=== PATIENT | female | born 2000 | race Caucasian/White ===

== ENCOUNTER 2019-07-09 20:52 | Emergency (ER) | payer OTHER, SELFPAY ==
[2019-07-09 20:59] VITALS: BP 143/93; PULSE 76; RESP 16; TEMP 37.2; O2SAT 100
[2019-07-09 21:22] LABS: Basophils Absolute Auto 0.1 K/mm3 (0.0-0.1); Basophils Percent Auto 0.5 % (0.2-1.2); Eosinophils Absolute Auto 0.2 K/mm3 (0-0.3); Eosinophils Percent Auto 1.8 % (0-4.4); Hematocrit 42.7 % (37.0-47.0); Immature Granulocyte Absolute 0.04 K/mm3 (0.00-0.031); Immature Granulocyte Percent A 0.4 % (0-0.5); Lymphocytes Absolute Auto 3.22 K/mm3 (0.9-3.2); Lymphocytes Percent Auto 32.1 % (18.3-44.2); Mean Corpuscular HGB Conc 35.1 g/dl (32-36); Mean Corpuscular Hemoglobin 30.1 pg (26-34); Mean Corpuscular Volume 85.7 fl (80-100); Mean Platelet Volume 10.3 fl (7.4-10.4); Monocytes Absolute Auto 0.8 K/mm3 (0.1-0.6); Monocytes Percent Auto 8.3 % (2.6-8.5); Neutrophils Absolute Auto 5.7 K/mm3 (1.3-6.7); Neutrophils Percent Auto 56.9 % (45.5-73.1); Platelet Count Result 336 k/mm3 (150-375); Red Blood Count 4.98 M/mm3 (4.2-5.4); Red Cell Distribution Width 11.7 % (11.5-14.5)
[2019-07-09 21:52] LABS: Beta HCG Quantitative 24.74 mIU/ML
--- NOTE | 2019-07-09 21:55 | ED.PREGNANCY ---
HPI - General Chief complaint: Vaginal Bleeding Stated complaint: , bleeding Time Seen by Provider: 07/09/19 21:41 Source: patient Mode of arrival: ambulatory Limitations: no limitations History of Present Illness HPI Narrative: A 19 y/o female presents to the ED with c/o vaginal bleeding that began at 8:00 PM. Pt?s LNMP was on 06/07/2019 and the pt had 4 positive home tests on Saturday (3 days ago). Pt started ?bleeding like a period? tonight but did not see any clots. Pt describes the blood as bright red. Pt has an appointment with Dr. Reina on 07/22/2019. She reports fatigue, occasional alcohol use, and a FHx of miscarriages, but denies ABD pain, lightheadedness, dizziness, N/V, smoking, and drug use. Onset (ago): hour(s) (8:00 PM) Date of Last Menstrual Period: 06/07/19 Related Data Home Medications Medication Instructions Recorded Confirmed No Home Medications 07/09/19 07/09/19 Allergies Allergy/AdvReac Type Severity Reaction Status Date / Time No Known Allergies Allergy Unknown Verified 07/09/19 21:08 Review of Systems Review of Systems: All systems reviewed & are unremarkable except as noted in HPI and below Constitutional: Constitutional: Reports fatigue Comments: Denies: lightheadedness, dizziness Gastrointestinal: Gastrointestinal: Denies abdominal pain, Denies nausea and Denies vomiting Genitourinary: Genitourinary: Reports abnormal vaginal bleeding PMFSH Past Medical History Medical History (Updated 07/10/19 @ 00:09 by Ayanna Rodriguez MD) Asthma Finger fracture right 5th Shingles Surgical History Surgical History History of placement of ear tubes Social History Social History (Updated 07/09/19 @ 21:58 by Evelia Grove) Smoking status: Never smoker Alcohol intake: current Alcohol use details: occasional Substance use: never Comments No PCP on file. Exam Narrative: Exam Narrative: GENERAL: Well-appearing, well-nourished, and in no acute distress. HEAD: Normocephalic, atraumatic EYES: PERRLA and EOMI, conjunctiva clear without discharge THROAT:Mucous membranes moist, NECK: Supple, without lymphadenopathy or mass RESPIRATORY: No respiratory distress, Airway patent, Respirations non-labored, Clear to auscultation without rales, rhonchi or wheeze HEART: Regular rate and rhythm. No murmur heard. Normal peripheral pulses. ABDOMEN: Soft, nontender, nondistended, normal active bowel sounds. No masses. No rebound or guarding, No organomegaly. EXTREMITIES: No edema, normal strength with full range of motion. SKIN: Warm, dry, normal color without rash NEURO: Alert and oriented x3. CN 2-12 grossly intact. No focal deficits. PSYCH: Normal mood and affect. : Speculum Exam - Vagina: vaginal bleeding (small amount of dark blood in vaginal vault, no clots, no tissue) Speculum Exam - Cervix: Cervical os closed Course Course Emergency Course: Patient presents with vaginal bleeding with approximate GA 4-5 weeks . Today her HCG is extremely low. I have discussed with patient she is likely having miscarriage , and she will need to get repeat HCG . Bedside ultrasound did not show any FF or IUP. She will call Dr. Reina tomorrow for follow up . She has been given rhogam due to her having Rh negative Consultations Consultation #1: Discussed case with Dr. Reina. Pt can call the office tomorrow and he agrees with giving RhoGAM. Date: 07/09/19 Time: 23:28 Vital Signs Vital signs: Vital Signs Temperature 99.0 F 07/09/19 20:59 Pulse Rate 76 07/09/19 20:59 Respiratory Rate 16 07/09/19 20:59 Blood Pressure 143/93 H 07/09/19 20:59 Pulse Oximetry 100 07/09/19 20:59 Temperature 99.0 F 07/09/19 23:51 Pulse Rate 72 07/09/19 23:51 Respiratory Rate 18 07/09/19 23:51 Blood Pressure 117/76 07/09/19 23:51 Pulse Oximetry 99 07/09/19 23:51 MDM - OB/Uterine Contractions
[2019-07-09 23:48] VITALS: BP 117/76; PULSE 72; PULSE 88; RESP 18; O2SAT 99
[2019-07-09 23:51] VITALS: BP 117/76; PULSE 72; RESP 18; TEMP 37.2; O2SAT 99
[2019-07-09] MEDS: RHO(D) IMMUNE GLOBULIN 300 MCG SYRINGE IM (23:55)
== END 2019-07-10 00:22 | disposition home or self-care (01) ==
PROVIDERS: Emergency Medicine; Emergency Provider General Practice
DX: O20.0 Threatened abortion (principal); Z3A.01 Less than 8 weeks gestation of pregnancy
CPT/HCPCS: 36415; 84702; 85025; 86850; 86900; 86901; 90384; 96372; 99284; J2790

== ENCOUNTER 2020-05-31 16:40 | Observation (INO) | payer OTHER, SELFPAY ==
--- NOTE | ~2020-05-31 | US_ITS ---
US OB limited DATE: 05/31/2020 18:20 INDICATION: Vaginal bleeding. Check placenta, cervical length. TECHNIQUE: Real-time imaging via transabdominal approach COMPARISON: None FINDINGS: There is a posterior placenta. Lower placental margin is approximately 6 cm above the inter nal os. Cervical length is not optimally determined on this limited transabdominal examination without transv aginal views. Fetus in transverse lie. heart rate 138 bpm. IMPRESSION: Posterior placenta; no evidence of previa or any apparent abruption Reviewed, dictated and finalized at [facility] Reviewed, dictated and finalized at [facility]. WORKER
--- NOTE | 2020-05-31 16:40 | OBADM ---
This patient, Jamilah Valenzuela, admitted to the OB room [facility] for observation. Patient/family oriented to hospital policies and general routines including ID bracelet, bed and alarms, visiting hours, pain management, procedures, bathroom and other care routines, personal items, smoking policy, room service/diet, and visiting hours. Patient/Family are encouraged to report perceived risks to care and to ask questions if they do not understand what they are told or what they should do.
[2020-05-31 17:01] VITALS: BP 112/59; PULSE 82
[2020-05-31 17:10] VITALS: TEMP 36.9
[2020-05-31 17:15] VITALS: BP 110/55; PULSE 77; BMI 29.2
[2020-05-31 17:23] LABS: Add Urine Microscopic? YES; Amorphous Sediment Urine Moderate; Appearance Urine Turbid (Clear); Bacteria Urine 4+ /hpf; Bilirubin Urine Negative (Negative); Blood Urine Negative (Negative); Color Urine Yellow (Yellow); Glucose Urine UA Negative (Negative); Ketones Urine Negative (Negative); Leukocyte Esterase Ur Negative LEU/UL (NEGATIVE); Mucus Urine Rare /lpf; Nitrate Urine Negative (Negative); Protein Urine 2+ mg/dL (Negative); Specific Grav Ur 1.015 (1.001-1.035); Squamous Epithelial Cell Urine Many /hpf (Few); Urobilinogen Urine Negative mg/dL (<2.0)
[2020-05-31 17:30] VITALS: BP 87/33; PULSE 74
--- NOTE | 2020-06-06 08:55 | PM.OBTRLD ---
OB - Triage/Final Diagnosis Visit Information Comments/Additional reasons for admission: I have assessed the risk for this patient, Jamilah Valenzuela, and determined that she would benefit from observation care. Evaluation Laboratory results: Laboratory Tests 05/31/20 17:11 Urine Color Yellow Urine Appearance Turbid H Urine pH 9.0 Ur Specific [place] 1.015 Urine Protein 2+ H Urine Glucose (UA) Negative Urine Ketones Negative Ur Blood (Man) Negative Urine Nitrate Negative Urine Bilirubin Negative Urine Urobilinogen Negative Ur Leukocyte Esterase Negative Ur Squamous Epith Cells Many H Amorphous Sediment Moderate H Urine Bacteria 4+ H Urine Mucus Rare Final Diagnosis (1) Vaginal bleeding in patient after first trimester: Code(s): O46.90 - Antepartum hemorrhage, unspecified, unspecified trimester Status: Acute
== END 2020-05-31 19:00 | disposition home or self-care (01) ==
PROVIDERS: Admitting Provider Obstetrics & Gynecology; Visit Provider Obstetrics & Gynecology
DX: O46.92 Antepartum hemorrhage, unspecified, second trimester (principal); Z3A.23 23 weeks gestation of pregnancy
CPT/HCPCS: 76815; 81001; 87086; G0378; G0379

== ENCOUNTER 2022-06-25 10:08 | Emergency (ER) | payer OTHER, SELFPAY ==
[2022-06-25 10:34] VITALS: BP 124/77; PULSE 85; RESP 18; TEMP 36.3; O2SAT 100
--- NOTE | 2022-06-25 11:22 | ED.URI ---
HPI - URI/Sore Throat General Chief Complaint: Upper Respiratory Infection Stated Complaint: cough,sorethroat Time Seen by Provider: 06/25/22 11:22 Source: patient and RN notes reviewed Mode of arrival: ambulatory Limitations: no limitations History of Present Illness HPI Narrative: Influenza a presenting for complaint of sinus congestion, cough, sore throat for about four days. also reports intermittent hoarse voice. 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 Not taking anything for symptoms. Denies shortness of breath, nausea, vomiting, diarrhea, fevers or chills. MD elicited complaint: cough Related Data Home Medications Medication Instructions Recorded Confirmed vits no.126-ferrous fum 1 tablet PO DAILY 05/31/20 05/31/20 28 mg iron-folic acid 800 mcg tablet (Classic ) fluoxetine 10 mg tablet 10 mg PO DAILY 06/25/22 06/25/22 Allergies Allergy/AdvReac Type Severity Reaction Status Date / Time No Known Allergies Allergy Unknown Verified 06/25/22 10:48 Review of Systems Review of Systems: per HPI [facility] Past Medical History Medical History Asthma Finger fracture right 5th Shingles Surgical History Surgical History History of placement of ear tubes Social History Social History Smoking status: Never smoker Alcohol intake: current Alcohol use details: occasional Substance use: never Exam Narrative: GENERAL: well-appearing, nontoxic no acute distress. HEAD: Normocephalic EYES: PERRLA, conjunctivae clear ENT: Mucous membranes moist. TM pearly foley with dull light reflex bilaterally; no tragal tenderness. Oropharynx erythematous without lesions or exudate, tonsils 2+; no drooling, no hoarseness, no trismus, uvula midline. No tripod positioning, muffled voice, soft palate or pharyngeal wall bulging NECK: Supple. No lymphadenopathy CHEST: Clear to auscultation, breath sounds equal. HEART: Regular rate and rhythm. No murmur heard. SKIN: Warm, dry, no rash. NEURO: Alert and oriented x3. PSYCH: Normal mood and affect Course Course Emergency Course: Patient is aware of diagnosis, understands and agrees to treatment plan. Anticipatory guidance given. Patient agrees to follow-up as directed and is aware of reasons to seek care at the emergency department. Portions of this record may have been created with voice recognition software Level of Care: Express Care Visit Vital Signs Vital signs: Vital Signs Temperature 97.3 F L 06/25/22 10:34 Pulse Rate 85 06/25/22 10:34 Respiratory Rate 18 06/25/22 10:34 Blood Pressure 124/77 06/25/22 10:34 Pulse Oximetry 100 06/25/22 10:34 Oxygen Delivery Room Air 06/25/22 10:34 Temperature 97.3 F L 06/25/22 10:34 Pulse Rate 85 06/25/22 10:34 Respiratory Rate 18 06/25/22 10:34 Blood Pressure 124/77 06/25/22 10:34 Pulse Oximetry 100 06/25/22 10:34 Oxygen Delivery Room Air 06/25/22 10:34 reviewed MDM - URI/Sore Throat MDM Narrative Medical decision making narrative: Advised supportive measures and signs/symptoms to go to the ER. Pt is appropriate for outpt treatment and f/u. Differential Diagnosis Differential diagnosis: Likely upper respiratory infection, sinusitis and viral infection Lab Data Labs: Strep Screen Presumptive Negative *(Reference Range: Negative)* Discharge Plan Discharge Clinical Impression: Upper respiratory infection Patient Disposition: Home, Self-Care Condition: Stable Instructions: Upper Respiratory Infection (ED) Additional Instructions: Rapid strep swab was negative today You will be notified in a few days if the culture comes back positive for strep, and appropriate antibiot
== END 2022-06-25 11:37 | disposition home or self-care (01) ==
PROVIDERS: Emergency Provider Nurse Practitioner Family
DX: J06.9 Acute upper respiratory infection, unspecified (principal); J45.909 Unspecified asthma, uncomplicated
CPT/HCPCS: 87081; 87880; 99213; G0463

== ENCOUNTER 2023-02-25 09:36 | Emergency (ER) | payer OTHER, SELFPAY ==
[2023-02-25 09:45] VITALS: BP 123/71; PULSE 83; RESP 18; TEMP 36.6; O2SAT 100
--- NOTE | 2023-02-25 10:06 | ED.URI ---
HPI - URI/Sore Throat General Chief Complaint: Upper Respiratory Infection Stated Complaint: cough,nausea,congestion Time Seen by Provider: 02/25/23 09:55 Source: patient and RN notes reviewed Mode of arrival: ambulatory Limitations: no limitations History of Present Illness HPI Narrative: Patient presents today complaining of 3 day history of cough, congestion, rhinorrhea, nausea, headache, vomiting. She also reports shortness of breath with coughing episodes. Denies fever. Currently rates her pain 5/10. She has tried no [id number] treatment prior to arrival. Patient works at a daycare with multiple sick exposures. Patient reports history of exercise-induced asthma as a child Related Data Home Medications Medication Instructions Recorded Confirmed No Home Medications 02/25/23 02/25/23 Allergies Allergy/AdvReac Type Severity Reaction Status Date / Time No Known Allergies Allergy Unknown Verified 06/25/22 10:48 Review of Systems Review of Systems: CONSTITUTIONAL: Denies body aches, fever, chills, or sweats. EYES: Denies visual changes, redness, or discharge. ENT: Denies sore throat, or otalgia.+ rhinorrhea, congestion CARDIOVASCULAR: Denies chest pain, palpitations, or edema. RESPIRATORY: + cough, shortness of breath GASTROINTESTINAL: Denies abdominal pain, vomiting, or diarrhea.+ nausea GENITOURINARY: Denies dysuria or hematuria. SKIN: Denies rash, itching, or wounds. MUSCULOSKELETAL: Denies back pain, joint pain, or myalgia. NEUROLOGIC: Denies numbness, tingling, or weakness.+ headache PSYCH: Denies depression or anxiety. [facility] Past Medical History Medical History Asthma Finger fracture right 5th Shingles Surgical History Surgical History History of placement of ear tubes Social History Social History Smoking status: Never smoker Alcohol intake: current Alcohol use details: occasional Substance use: never Comments At time of signature, I have reviewed and agree with nursing past medical, surgical, social and family history unless otherwise noted. Please see nursing chart for further information. There is no relevant family history pertinent to the presenting complaint Exam Narrative: GENERAL: Mildly ill-appearing, well-nourished, and in no acute distress. HEAD: Normocephalic, atraumatic. EYES: EOMI. No redness or drainage. Conjunctivae normal. ENT: Mucous membranes pink and moist. Nares congested. No rhinorrhea. TMs normal bilaterally. Throat normal. Uvula midline. NECK: Normal AROM. Supple. No lymphadenopathy. CHEST: No respiratory distress. Clear to auscultation. HEART: Regular rate and rhythm. No murmur appreciated. Normal peripheral pulses. EXTREMITIES: Normal range of motion. No edema. SKIN: Warm, dry, no rash. Capillary refill normal. Normal skin turgor. NEURO: No focal deficits. Alert and oriented x3. Gait steady. PSYCH: Normal affect. No signs of depression or anxiety. Course Course Level of Care: Express Care Visit Vital Signs Vital signs: Vital Signs Temperature 98 F 02/25/23 09:45 Pulse Rate 83 02/25/23 09:45 Respiratory Rate 18 02/25/23 09:45 Blood Pressure 123/71 02/25/23 09:45 Pulse Oximetry 100 02/25/23 09:45 Oxygen Delivery Room Air 02/25/23 09:45 Temperature 98 F 02/25/23 09:45 Pulse Rate 83 02/25/23 09:45 Respiratory Rate 18 02/25/23 09:45 Blood Pressure 123/71 02/25/23 09:45 Pulse Oximetry 100 02/25/23 09:45 Oxygen Delivery Room Air 02/25/23 09:45 Reviewed. Pt has been instructed to follow up with her PCP regarding her elevated blood pressure today. MDM - URI/Sore Throat MDM Narrative Medical decision making narrative: All testing negative. Symptoms likely viral in etiology. No prescription med
== END 2023-02-25 10:14 | disposition home or self-care (01) ==
PROVIDERS: Emergency Provider Nurse Practitioner
DX: B34.9 Viral infection, unspecified (principal); Z20.822 Contact with and (suspected) exposure to COVID-19
CPT/HCPCS: 87081; 87426; 87804; 87880; 99213; C9803; G0463

== ENCOUNTER 2023-05-17 11:25 | Emergency (ER) | payer OTHER, SELFPAY ==
--- NOTE | 2023-05-17 11:31 | ED.URI ---
HPI - URI/Sore Throat General Chief Complaint: Upper Respiratory Infection Stated Complaint: Shortness of Breath, Can't Hear and Smell Time Seen by Provider: 05/17/23 11:31 Source: patient, RN notes reviewed and old records reviewed Mode of arrival: ambulatory Limitations: no limitations History of Present Illness HPI Narrative: 23-year-old female presents to the [facility] with complaints of decreased hearing, loss of smell and shortness of breath Symptoms started 2 weeks ago. Patient states that for the last several days she has had intermittent chest pressure. Patient states that her father was recently diagnosed with AFib, concerns in regards to back. Patient reports that her dad's in the hospital and she has been very worried. Patient is 7 weeks , uses [employer] Has not taken anything for her symptoms Related Data Home Medications Medication Instructions Recorded Confirmed vit#24-iron amino acid 1 tablet PO DAILY 05/17/23 05/17/23 chelat-folic acid 30 mg-975 mcg tablet Allergies Allergy/AdvReac Type Severity Reaction Status Date / Time No Known Allergies Allergy Unknown Verified 05/17/23 11:27 Review of Systems Review of Systems: All systems reviewed & are unremarkable except as noted in HPI and below Constitutional: Constitutional: Reports no additional constitutional complaints Eyes: Eyes: Reports no additional eye complaints ENT: Reports as per HPI Cardiovascular: Cardiovascular: Reports no additional cardiovascular complaints, Denies chest pain and Denies dyspnea Respiratory: Respiratory: Reports no additional respiratory complaints, Denies chest congestion, Denies cough and Denies dyspnea Gastrointestinal: Gastrointestinal: Reports no additional gastrointestinal complaints, Denies abdominal pain, Denies nausea and Denies vomiting Musculoskeletal: Musculoskeletal: Reports no additional musculoskeletal complaints Integumentary/Breasts: Skin/Breast: Reports system reviewed and no additional complaints, except as docu Neurologic: Reports system reviewed and no additional complaints, except as documented Psychiatric: Psychiatric: Reports no additional psychiatric complaints Allergic/Immunologic: Allergic/Immunologic: Reports no additional allergic/immunologic complaints [facility] Past Medical History Medical History Asthma Finger fracture right 5th Shingles Surgical History Surgical History History of placement of ear tubes Social History Social History Smoking status: Never smoker Alcohol intake: current Alcohol use details: occasional Substance use: never Comments At the time of my signature, I reviewed and agree with the nursing past medical, surgical, social, and family history. There is no relevant family history pertinent to the patient complaint. Exam Const: General: cooperative, healthy appearing, comfortable, no acute distress, well developed, alert and well nourished Nutritional Appearance: well nourished Orientation/consciousness: patient oriented x3 Limitations: no limitations HENMT: Head: normal to inspection Ears: hearing grossly normal bilaterally, external ears normal, TM's normal bilaterally, EAC's normal, mastoids normal and no periauricular adenopathy Face/Nose/Sinus: Normal external nose present, Normal nares present, Normal nasal mucous membranes and turbinates present, normal facial exam and face symmetric Face and sinus: normal facial exam and face symmetric Mouth: Yes Normal oral and palatal mucosa present, Yes lip normal and Yes moist mucous membranes Throat: posterior oropharynx normal, uvula midline and postnasal drainage Eyes: General: appearance normal, both eyes and all related structures Alignment and Position: alignment normal Pe
[2023-05-17 11:33] VITALS: BP 116/54; PULSE 88; RESP 16; TEMP 36.6; O2SAT 99
--- NOTE | 2023-05-17 11:39 | ECG_ITS ---
Measurements Intervals [place] Rate: 74 P: 40 KS: 134 QRS: 72 QRSD: 85 T: 21 QT: 388 QTc: 433 Interpretive Statements SINUS RHYTHM NORMAL ECG NO PREVIOUS ECG AVAILABLE FOR COMPARISON Electronically Signed On 05-17-2023 11:57:32 ANIMAL ATTENDANT by Michael Soto D.O.
== END 2023-05-17 11:57 | disposition home or self-care (01) ==
PROVIDERS: Emergency Provider Nurse Practitioner
DX: J06.9 Acute upper respiratory infection, unspecified (principal); H92.09 Otalgia, unspecified ear; F41.9 Anxiety disorder, unspecified; I48.91 Unspecified atrial fibrillation; J45.909 Unspecified asthma, uncomplicated
CPT/HCPCS: 93005; 99213; G0463

== ENCOUNTER 2023-06-18 13:58 | Emergency (ER) | payer OTHER, SELFPAY ==
--- NOTE | 2023-06-18 14:05 | ED.URI ---
HPI - URI/Sore Throat General Chief Complaint: Upper Respiratory Infection Stated Complaint: sorethroat,congestion Time Seen by Provider: 06/18/23 14:04 Source: patient Mode of arrival: ambulatory Limitations: no limitations History of Present Illness HPI Narrative: Patient is a 23-year-old female who presents with congestion, sore throat, sinus drainage and headache this started this morning. Patient has not taken anything for his symptoms. Patient is approximately 12 weeks . 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 Related Data Home Medications Medication Instructions Recorded Confirmed vit#24-iron amino acid 1 tablet PO DAILY 05/17/23 06/18/23 chelat-folic acid 30 mg-975 mcg tablet Allergies Allergy/AdvReac Type Severity Reaction Status Date / Time No Known Allergies Allergy Unknown Verified 06/18/23 14:04 Review of Systems Review of Systems: All systems reviewed & are unremarkable except as noted in HPI and below Constitutional: Constitutional: Denies body ache(s), Denies chills, Denies fatigue, Denies fever(s), Reports headache(s), Denies malaise and Denies weakness Eyes: Eyes: Denies blurry vision, Denies itchy eyes and Denies loss of vision ENT: Denies otalgia, Denies headache(s), Reports nasal congestion, Denies sinus pain and Reports sore throat Cardiovascular: Cardiovascular: Denies chest pain, Denies irregular heart rhythm and Denies dyspnea Respiratory: Respiratory: Denies cough and Denies dyspnea Gastrointestinal: Gastrointestinal: Denies abdominal pain, Denies diarrhea, Denies nausea and Denies vomiting Musculoskeletal: Musculoskeletal: Denies back pain, Denies myalgias and Denies arthralgias Integumentary/Breasts: Skin/Breast: Denies pruritus and Denies rash Neurologic: Denies headache(s), Denies loss of vision and Denies weakness Psychiatric: Psychiatric: Reports no additional psychiatric complaints Endocrine: Endocrine: Denies fatigue Allergic/Immunologic: Allergic/Immunologic: Denies itchy eyes PMFSH Past Medical History Medical History Asthma Finger fracture right 5th Shingles Surgical History Surgical History History of placement of ear tubes Social History Social History Smoking status: Never smoker Alcohol intake: current Alcohol use details: occasional Substance use: never Comments At time of signature, agree with nursing past medical, surgical, social and family history. There is no relevant family history pertinent to the presenting complaint. Exam Const: General: cooperative, healthy appearing, comfortable, no acute distress and well nourished Nutritional Appearance: well nourished Orientation/consciousness: patient oriented x3 Limitations: no limitations HENMT: Head: normal to inspection, normocephalic and atraumatic Ears: hearing grossly normal bilaterally, external ears normal, TM's normal bilaterally, EAC's normal and no periauricular adenopathy Face/Nose/Sinus: Normal external nose present, Abnormal mucous membranes and turbinates present erythematous bilateral and diffuse, normal facial exam, sinuses nontender and face symmetric Face and sinus: normal facial exam, sinuses nontender and face symmetric Mouth: Yes Normal oral and palatal mucosa present, Yes lip normal, Yes tongue normal, Yes Normal salivary glands and ducts present, Yes oropharynx normal and Yes moist mucous membranes Teeth and gingiva: dentition normal Throat: posterior oropharynx normal, tonsils normal and uvula midline Eyes: General: appearance normal, both eyes and all related structures Alignment and Position: alignment normal and position normal Periorbital: periorbital findings normal Eyelids: eyelids normal Pupils: Equal, round and reactive pupils present Neck:
[2023-06-18 14:18] VITALS: BP 116/70; PULSE 86; RESP 16; TEMP 36.8; O2SAT 99
== END 2023-06-18 14:43 | disposition home or self-care (01) ==
PROVIDERS: Emergency Provider Nurse Practitioner Family
DX: O99.511 Diseases of the respiratory system complicating pregnancy, first trimester (principal); Z3A.12 12 weeks gestation of pregnancy; J06.9 Acute upper respiratory infection, unspecified; J45.909 Unspecified asthma, uncomplicated
CPT/HCPCS: 87081; 87880; 99213; G0463

== ENCOUNTER 2024-02-06 12:35 | Emergency (ER) | payer OTHER, SELFPAY ==
--- NOTE | 2024-02-06 12:46 | ED.URI ---
HPI - URI/Sore Throat General Chief Complaint: Upper Respiratory Infection Stated Complaint: Sore throat/ cough/ body aches Time Seen by Provider: 02/06/24 12:46 Source: patient Mode of arrival: ambulatory Limitations: no limitations History of Present Illness HPI Narrative: Patient is a 24-year-old female who presents with 3 days of cough, sore throat, headache, body aches. Patient reports fever of 100.2 last night but woke up sweating in her sleep. Patient has been taking ibuprofen and Mucinex. Denies any nausea, vomiting, diarrhea. Son is currently on amoxicillin for sinus infection. Patient also states she is being worked up for autoimmune disease by her Ob Related Data Home Medications Medication Instructions Recorded Confirmed bupropion HCl 100 mg tablet,12 hr mg PO 02/06/24 sustained-release Allergies Allergy/AdvReac Type Severity Reaction Status Date / Time No Known Allergies Allergy Unknown Verified 02/06/24 13:16 Review of Systems Review of Systems: All systems reviewed & are unremarkable except as noted in HPI and below Constitutional: Constitutional: Reports body ache(s), Denies chills, Reports fatigue, Reports fever(s), Reports headache(s), Denies malaise and Denies weakness Eyes: Eyes: Denies blurry vision, Denies itchy eyes and Denies loss of vision ENT: Denies otalgia, Denies headache(s), Reports nasal congestion, Denies sinus pain and Reports sore throat Cardiovascular: Cardiovascular: Denies chest pain, Denies irregular heart rhythm and Denies dyspnea Respiratory: Respiratory: Reports cough and Denies dyspnea Gastrointestinal: Gastrointestinal: Denies abdominal pain, Denies diarrhea, Denies nausea and Denies vomiting Musculoskeletal: Musculoskeletal: Denies back pain, Reports myalgias and Denies arthralgias Integumentary/Breasts: Skin/Breast: Denies pruritus and Denies rash Neurologic: Reports headache(s), Denies loss of vision and Denies weakness Psychiatric: Psychiatric: Reports no additional psychiatric complaints Endocrine: Endocrine: Denies fatigue Allergic/Immunologic: Allergic/Immunologic: Denies itchy eyes PMFSH Past Medical History Medical History Asthma Finger fracture right 5th Shingles Surgical History Surgical History History of placement of ear tubes Social History Social History Smoking status: Never smoker Alcohol intake: current Alcohol use details: occasional Substance use: never Comments At time of signature, agree with nursing past medical, surgical, social and family history. There is no relevant family history pertinent to the presenting complaint. Exam Const: General: cooperative, healthy appearing, comfortable, no acute distress and well nourished Nutritional Appearance: well nourished Orientation/consciousness: patient oriented x3 Limitations: no limitations HENMT: Head: normal to inspection, normocephalic and atraumatic Ears: hearing grossly normal bilaterally, external ears normal, TM's normal bilaterally, EAC's normal and no periauricular adenopathy Face/Nose/Sinus: Normal external nose present, Abnormal mucous membranes and turbinates present erythematous bilateral and diffuse, normal facial exam, sinuses nontender and face symmetric Face and sinus: normal facial exam, sinuses nontender and face symmetric Mouth: Yes Normal oral and palatal mucosa present, Yes lip normal, Yes tongue normal, Yes Normal salivary glands and ducts present, Yes oropharynx normal and Yes moist mucous membranes Teeth and gingiva: dentition normal Throat: posterior oropharynx normal, tonsils normal and uvula midline Eyes: General: appearance normal, both eyes and all related structures Alignment and Position: alignment normal and position normal Periorbital: periorbital findings normal Ey
[2024-02-06 12:51] VITALS: BP 118/67; PULSE 90; RESP 16; TEMP 36.4; O2SAT 100
[2024-02-06 13:17] LABS: EDCOVIDSCREEN Negative (Negative); EDINFLUASCREEN Negative (Negative); EDINFLUBSCREEN Negative (Negative); EDSTREPNEGPOS1 Negative (Negative)
== END 2024-02-06 13:28 | disposition home or self-care (01) ==
PROVIDERS: Emergency Provider Nurse Practitioner Family
DX: J06.9 Acute upper respiratory infection, unspecified (principal); J45.909 Unspecified asthma, uncomplicated; Z20.822 Contact with and (suspected) exposure to COVID-19
CPT/HCPCS: 87081; 87426; 87804; 87880; 99213; G0463

== ENCOUNTER 2024-11-02 11:13 | Emergency (ER) | payer OTHER, SELFPAY ==
[2024-11-02 11:24] VITALS: BP 110/59; PULSE 100; RESP 18; TEMP 36.7; O2SAT 99
--- OUTSIDE RECORDS SUMMARY | 2024-11-02 11:44 | XMS_ITS | Clinical Summary ---
Author Organization [facility] Address [address] [place] [address] Care Team Providers Care Labor Service Representative Name Role Phone Unavailable Primary Care Provider Unavailabl e Source Comments [facility],non-owned Affiliates and Associated Physician Practices is amultiple site organization consisting of ambulatory clinics and hospital sitesin [place], [place], [place] and [place]. This disclosure is being madepursuant to the Care Everywhere program and may not contain all information available regarding this patient. Last updated 18.[facility] Allergies No known active allergies Medications * Be aware that medications may not be up to date on this document. Alwaysverify current medications with the patient. DOXYCYCLINE PO Activ e metroNIDAZOLE (FLAGYL) 500 MG tablet Take 500 mg by mouth every 8 hours Active etonogestrel (NEXPLANON) 68 MG implant 68 mg by Subdermal route as directed Active Active Problems Problem Noted Date Diagnosed Date Second 05/20/2020 Encounter for ultrasound 05/20/2020 Poor growth affecting management of mother, antepartum 05/20/2020 Overview (05/20/2020): 7% at 20 wk anatomy on outside scan. Immunizations Immunization Administration Dates Next Due DPT 1998,1998,1998 DTaP VACCINE IM (6wk-6yrs) 11/30/2003,07/08/1999 HEP A PEDS 2 DOSE 02/14/2004 HEP B VACCINE, PED/ADOL 1998,1998, HIB BOOSTER 07/08/1999, 9,1998, 8 MENINGOCOCCAL ACWY (MCV4P) VAC IM 01/18/2016 MMR 11/30/2003,01/12/1999 POLIO IPV 11/27/2003,1998,1998 POLIO OPV 1998 Family History Medical History Relation Name Comments Hypertension Father Asthma Neg Hx Autoimmune Disease Neg Hx Bipolar Disorder Neg Hx Cancer - Breast Neg Hx Cancer - Colon Neg Hx Cancer - Other Neg Hx Cancer - Ovarian Neg Hx Cancer - Pancreatic Neg Hx Cancer - Prostate Neg Hx Depression Neg Hx Eczema Neg Hx Migraine Neg Hx Osteoporosis Neg Hx Seizures Neg Hx Sudd. <30 Neg Hx Thyroid Disease Neg Hx Ulcerative Colitis Neg Hx Relation Name Status Comments Father Alive Mother Alive Social History Tobacco Use Types Packs/Day Years Used Date Smoking Tobacco: Never Smokeless Tobacco: Never Tobacco Cessation:Counseling Given: No Alcohol Use Standard Drinks/Week Comments No 0 (1 standard drink = 0.6 oz pur e alcohol) Comments No Sex and Gender Information Value Date Recorded Sex Assigned at Not on file Legal Sex Female 1:03 PM CDT Gender Identity Not on file Sexual Orientation Not on file Last Filed Vital Signs Vital Sign Reading Time Taken Comments Blood Pressure 116/62 10/09/2021 9:52 AM CDT Pulse 65 10/09/2021 9:52 AM CDT Temperature 36.6 C (97.9 F) 06/29/2020 8:52 AM DELICATESSEN SLICER Respiratory Rate 16 10/09/2021 9:52 AM CDT Oxygen Saturation 97% 06/19/2018 3:27 PM DELICATESSEN SLICER Inhaled Oxygen Concentration - - Weight 63.5 kg (140 lb) 06/19/2018 3:27 PM DELICATESSEN SLICER Height 149.9 cm (4' 11) 06/19/2018 3:27 PM DELICATESSEN SLICER Body Mass Index 28.28 06/19/2018 3:27 PM DELICATESSEN SLICER Plan of Treatment Health Maintenance Due Date Last Done Comments DTAP/TDAP/TD VACCINES (6 - Tdap) 2009 11/30/2003, 07/08/1999, 1998, Additional history exists HIV SCREENING 2013 HPV VACCINE (1 - 3-dose series) 2013 HEPATITIS C SCREENING 01/05/2016 PAP SMEAR 2019 COVID-19 VACCINE ( season) 2024 DEPRESSION SCREENING 05/06/2024 INFLUENZA VACCINE (Season Ended) 2025 07/30/2013 ZOSTER VACCINE (1 of 2) 01/10/2048 HEPATITIS B VACCINE Completed 1998, 1998, 1998 HIB VACCINE Completed 07/08/1999, 07/05, 1998, Additional history exists MENINGOCOCCAL GROUPS A/C/Y/W VACCINE Completed 01/18/2016 MENINGOCOCCAL (Group B) VACCINE SHARED DECISION-MAKING Aged Out No longer eligible based on patient's age to complete this topic PNEUMOCOCCAL VACCINE Aged Out No long er eligible based on patient's age to complete this topic Insurance MEDICAID [employer] [place] * Guarantor: JAMILAH VALENZUELA Account Type Relation to Patient Date of Phone Billing Address Personal/Family [address] [place] [address] * Guarantor: JAMILAH VALENZUELA Account Type Relation to Patient Date of Phone Billing Address Personal/Family 2000 [place] VALENZUELA [address] [place] [id number]
--- OUTSIDE RECORDS SUMMARY | 2024-11-02 11:44 | XMS_ITS | Continuity of Care Document ---
Author Organization [facility] Address [address] [place] [address] [address] [place] [address] Phone Care Team Providers Care Collar Worker Name Role Phone Priscilla Epps Unavailable Unavailable Advance Directives Directive Yes / No Effective Date File Name No Information Encounters Encounter Description Practice Location Reason(s) For Visit Diagnoses Date Provider Providers Copied on Encounter [facility], [address] [place] [address] [address], [place], [place], [id number], [place] tel:[phone] [facility] No Information Aug-2 3-200 2 Supriya Wells. [address] , [address], [place], [address], [place]. tel:[phone] Family History Family Member Type Diagnosis Age At Onset No Information Payers Payer name Insurance type Covered constitution party ID Authoriza tion(s) No Information Social History Type Description Quantity Date Captured Comments Sex Female Smoking Status No Information Chief Complaint And Reason For Visit No Information Reason For Referral Reason For Referral No Information History Of Present Illness Encounter Date Complaint History Of Prese nt Illness No Information Functional Status Date Functional Assessmen t No Information Instructions Date Instruction Additional Infor mation No Information Assessments Type Assessment Date No Information Patient Care Teams Name Effective Dates (start - stop) Status Members No Information
--- OUTSIDE RECORDS SUMMARY | 2024-11-02 11:44 | XMS_ITS | Clinical Summary ---
Author Organization [facility] Address [address] [place] [address] Phone Care Team Providers Care Automobile Engine Assembler Name Role Phone Hao Millard MD Primary Care Provider [phone] Allergies No known active allergies Medications HYDROcodone-acet aminophen (NORCO) 5-325 mg tablet Take 1 Tab by mouth every 4 hours as needed for Pain, Moderate. 12 Tab 0 02/27/2014 Active Social History Tobacco Use Types Packs/Day Years Used Date Smoking Tobacco: Never Comments Unknown Sex and Gender Information Value Date Recorded Sex Assigned at Not on file Legal Sex Female 7:35 PM CDT Gender Identity Not on file Sexual Orientation Not on file Last Filed Vital Signs Vital Sign Reading Time Taken Comments Blood Pressure 130/70 02/27/2014 9:02 PM CDT Pulse - - Temperature 36.9 C (98.5 F) 02/27/2014 7:41 PM CDT Respiratory Rate 20 02/27/2014 9:02 PM CDT Oxygen Saturation 98% 02/27/2014 9:02 PM CDT Inhaled Oxygen Concentration - - Weight 60 kg (132 lb 4.4 oz) 02/27/2014 7:41 PM CDT Height - - Body Mass Index - - Plan of Treatment Health Maintenance Due Date Last Done Comments HPV VACCINES (1 - 3-dose series) 2013 DTAP/TDAP/TD VACCINES (1 - Tdap) 2017 HEPATITIS B VACCINES (1 of 3 - 19+ 3-dose series) 10/2016 CERVICAL CANCER SCREENING 2019 HPV/Cotest (21-29) 2019 PAP SMEAR 2019 INFLUENZA VACCINE (#1) 2023 Care Teams Automobile Engine Assembler Relationship Specialty Start Date End Date Hao Millard MD [address] [place] [address] PCP - General Pediatrics 02/27/14
--- OUTSIDE RECORDS SUMMARY | 2024-11-02 11:45 | XMS_ITS | Referral Summary ---
Author Organization [address] Address [facility] [place] [address] Care Team Providers Care Survey Field Technician Name Role Phone Summer Nguyễn MD Unavailable [phone] No, Physician Primary Care Provider [phone] Encounters Date Type Department Care Team Description 10/28/2024 2:00 PM CDT Office Visit [facility] Maternal- Medicine [address] [place] [address] Outpatient Health 7th Floor [address] [place] [address] Anxiety and depression (Primary Dx); ASCUS of cervix with negative high risk HPV; History of section complicating ; Supervision of high-risk , second trimester; Short interval between pregnancies affecting in second trimester, antepartum; History of poor growth 10/28/2024 1:10 PM CDT - 10/28/2024 11:59 PM CDT Hospital Encounter [facility] - Ultrasound [address] [place] [address], 7th Floor, [address] [facility] [place] [address] Supervision of high-risk , unspecified trimester; Ventricular premature beats; History of section complicating ; Short interval between pregnancies affecting in second trimester, antepartum Discharge Disposition: Discharge to home or self care 09/23/2024 3:15 PM CDT Office Visit [facility] Maternal- Medicine [address] [place] [address] Health 7th Floor [address] [place] [address] Ventricular premature beats (Primary Dx); Supervision of high-risk , unspecified trimester; History of section complicating ; Short interval between pregnancies affecting in second trimester, antepartum; ASCUS of cervix with negative high risk HPV; Anxiety and depression 09/23/2024 2:10 PM CDT - 09/23/2024 11:59 PM CDT Hospital Encounter [facility] for Outpatient Health - Ultrasound [address] [facility], 7th Floor, [address] [facility] [place] [address] Supervision of high-risk , unspecified trimester Discharge Disposition: Discharge to home or self care 09/07/2024 Telephone [facility] Maternal- Medicine [address] [facility] Outpatient Health 7th Floor [address] [place] [address] Payal Joel, PRICE Scheduling US/OB New from Last 3 Months Allergies No known active allergies Medications albuterol HFA (PROVENTIL HFA,VENTOLIN HFA,PROAIR HFA) 90 mcg/actuation inhaler Inhale 2 puffs every 6 (six) hours as needed for wheezing Active aspirin 81 mg enteric coated tablet Take 1 tablet (81 mg total) by mouth daily 08/31/2024 Active vit-iron fum-folic ac ( Vitamin) 27 mg iron- 800 mcg tablet Take 1 tablet every day by oral route. 07/27/2024 Active riboflavin (Vitamin B-2) 100 mg tabletIndicatio ns:Riboflavin Deficiency 400mg daily by mouth 120 tablet 3 09/23/2024 Active magnesium oxide (MAG-OX) 500 mg (301.6 mg elemental) tablet Take 1 tablet (500 mg total) by mouth daily 30 tablet 3 09/23/2024 Active Active Problems Problem Noted Date Diagnosed Date History of poor growth 10/28/2024 Overview (10/28/2024): Growth scan at about 28 weeks and 34 weeks ASCUS of cervix with negative high risk HPV 11/2024 Overview (09/24/2024): Planned for follow up in 2025 per ASCCP guidelines w/ primary OBGYN. Short interval between pregn ancies affecting in second trimester, antepartum 09/08/2024 Overview (10/26/2024): Previously counseled History of section complicating pregnan cy 09/08/2024 Overview (10/28/2024): Ms. Valenzuela has a history of three prior deliveries, with the last notable for a uterine window underlying the bladder flap (op note available in Epic) and intraabdominal scar tissue. S/p counseling Plan: [] Given uterine window plan for 36 w 0 d- 37 6 d delivery [] Preop anemia optimization [] Readdress contraception at [facility], interested in BS Supervision of high-risk , second trime ster 09/08/2024 Overview (10/26/2024): [] OB consult only, [] Co-management vs. [x] Full MFM Care; [] Red Team [] Blue Team Referring Provider: Ysabel Ku [phone] [] or Medicare Insurance [x] Dating Criteria: LMP 06/19/24 with JOSE 03/26/25 [x] Labs: Rh [O-], Ab [negative], Rubella [immune], HIV [non-reactive], HepBSAg [non-reactive], HepBSAb [not done], HepBCAb [not done], RPR [non- reactive], Hep C [non-reactive], Varicella [positive], GC/CT [negative/negative] [] Aneuploidy Screening: collected w/ primary, results unavailable (pt reports wnl) [] Carrier Screening: [] Hgb electrophoresis: s/p nl CBC [x] CBC/Hgb: 13.3/38.6/plt 298 [x] Hgb A1c 08/31/24: 4.7 [x] UCx: 08/31/24: no growth [x] Pap: 02/21/23: ASCUS; HPV negative [] LD ASA (if indicated): not indicated [] EPDS [ ]; PNBHS referral (if indicated): 2nd Trimester [] Anatomy ultrasound: --- [] CBC/1hr gtt at 24-28wks: [] Rhogam at 28 wks (if Rh neg):will need 3rd Trimester [] CBC/HIV/RPR/T&S: [] GBS: [] GC/CT (if indicated): [] testing: Counseling [] MOD: RCS [] Place of delivery: [facility] [] Epidural: [] Accepts Blood Products: [] Stop ASA: [] MOC: [] Method of feeding: [] Trench Pipe Layer Helper (specifically which provider): [] PP Depression Discussed: [] PP visits scheduled: Vaccines [] Flu Shot (Jan-Apr): [] COVID vaccine: [] Tdap (27-36wks): [] RSV vaccine (32-36wks): [] PP HPV vaccine counseling (<=26 yo): Rh negative state in antepartum period Anxiety and depression 09/08/2024 Overview (10/28/2024): Ms. Valenzuela reports a history of depression after prior pregnancies. Plan: [] Monitor sx Ventricular premature beats 07/30/2012 Chest pain 07/30/2012 Estimated Date of Delivery Comme nts Yes 03/26/2025 Based on last me nstrual period of 06/19/2024 Resolved Problems Problem Noted Date Diagnosed Date Resolved Date Other specified diseases and conditions complicating 09/08/2024 09/24/2024 PROM with onset of labor mor e than 24 hours following rupture 12/17/2023 09/08/2024 37 weeks gestation of 10/17/2021 09/08/2024 Immunizations Immunization Administration Dates Next Due MMR 10/19/2021(Deferred: Contraindic ation) Social History Tobacco Use Types Packs/Day Years Used Date Smoking Tobacco: Never Tobacco Cessation:Counseling Given: Not Answered Alcohol Use Standard Drinks/Week Comments Not Currently 0 (1 standard drink = 0.6 oz pur e alcohol) AUDIT-C Answer Date Recorded Q1: How often do you have a drink containing alcohol? Never 12/17/2023 Q2: How many drinks containi ng alcohol do you have on a typical day when you are drinking? Patient does not drink Q3: How often do you have si x or more drinks on one occasion? Never 12/17/2023 Overall Financial Resource Strain (CARDIA) Answe r Date Recorded How hard is it for you to pa y for the very basics like food, housing, medical care, and heating? Not hard at all 12/17/2023 [facility] Occup[facility] - Occupational Stress Questionnaire Answer Date Recorded Do you feel stress - tense, restless, nervous, or anxious, or unable to sleep at night because your mind is troubled all the time - these days? Only a little 12/17/2023 PRAPARE - Transportation Answer Date Re corded In the past 12 months, has l ack of transportation kept you from medical appointments or from getting medications? No 12/04 In the past 12 months, has l ack of transportation kept you from meetings, work, or from getting things needed for daily living? No 12/17/2023 [place] Depression Scale Answer Date Recorded [place] Depression Scale Total 2 12/19/2023 The thought of harming myself has occurred to me . Never 12/19/2023 Housing Stability Vital Sign Answer Vinay e Recorded In the last 12 months, was t here a time when you were not able to pay the mortgage or rent on time? No 12/17/2023 Number of Times Moved in the Last Year Not on fi le 12/17/2023 At any time in the past 12 m [facility], were you homeless or living in a correction (including now)? No 12/17/2023 Personal Safety Answer Date Recorded Have you ever been in or are you currently in a harmful physical or emotional relationship or is someone making you feel afraid or unsafe? 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 Gender Identity Not on file Sexual Orientation Not on file Occupation Industry Job Start Date Job End Date UNEMPLOYED Not on file Not on file Not on file Last Filed Vital Signs Vital Sign Reading Time Taken Comments Blood Pressure 111/71 10/28/2024 2:24 PM CDT Pulse 89 10/28/2024 2:24 PM CDT Temperature 36.7 C (98 F) 12/20/2023 9:55 AM CDT Respiratory Rate 16 12/20/2023 9:55 AM CDT Oxygen Saturation 97% 10/28/2024 2:24 PM CDT Inhaled Oxygen Concentration - - Weight 70.8 kg (156 lb) 10/28/2024 2:24 PM CDT Height 152.4 cm (5') 10/28/2024 2:24 PM CDT Body Mass Index 30.47 10/28/2024 2:24 PM CDT Plan of Treatment Not on file Procedures Procedure Name Priority Date/Time Associated Diagnosis Comments US OB DETAIL ANATOMY SINGLE OR FIRST GESTATION Schedule Routine, Read Routine (OP Routine) 10/28/2024 1:10 PM CDT Supervision of high-risk , unspecified trimester Ventricular premature beats History of section complicating Short interval between pregnancies affecting in second trimester, antepartum US OB LIMITED Schedule Routine, Read Routine (OP Routine) 09/23/2024 2:10 PM CDT Supervision of high-risk , unspecified trimester HEMOGLOBIN A1C Routine 08/31/2024 ABO/RH Routine 08/31/2024 CBC WITHOUT DIFFERENTIAL Routine 08/31/2024 ANTIBODY SCREEN Routine 08/31/2024 VARICELLA ZOSTER ANTIBODY, IGG Routine 08/31/2024 RUBELLA IGG Routine 08/31/2024 RPR Routine 08/31/2024 HEPATITIS B SURFACE ANTIGEN Routine 08/31/2024 HEPATITIS C ANTIBODY Routine 08/31/2024 CHLAMYDIA TRACHOMATIS CULTURE Routine 08/31/2024 HIV 1/2 ANTIBODY PLUS P24 ANTIGEN Routine 08/31/2024 URINE CULTURE Routine 08/31/2024 N. GONORRHOEAE CULTURE Routine 08/31/2024 from Last 3 Months Results * US Ob Detail Anatomy Single Or First Gestation (10/28/2024 1:10 PM CDT) Fetus# Fetus1 VIEWPOINT Estimated Weight 235 g&grams VIEWPOINT Placenta Details posterior, fundal, Previa-no, no placental masses VIEWPOINT Presentation Breech VIEWPOINT Anatomical Region Laterality Modality Body N/A Ultrasound 10/28/2024 1:11 PM CDT Impressions 10/28/2024 2:24 PM CDT IUP - 18w 2d - interval growth is normal - size is AGA No structural malformations or markers for aneuploidy are identified. The cervical length measurement is normal. US may not detect all anomalies. Narrative Procedure Note Zenon Omalley MD - 10/28/2024 IMPRESSION: IUP - 18w 2d - interval growth is normal - size is AGA No structural malformations or markers for aneuploidy areidentified. The cervical length measurement is normal. US may not detect all anomalies. us Danilo Watters MD IMG OB US PROCEDU RES Final Result * US Ob Limited (09/23/2024 2:10 PM CDT) Fetus# Fetus1 VIEWPOINT Placenta Details fundal, Previa-no VIEWPOINT Anatomical Region Laterality Modality Abdomen N/A Ultrasound 09/23/2024 2:30 PM CDT Impressions 09/23/2024 2:51 PM CDT IUP at 13+5 for viability, evaluation of CS scar 1. CRL corresponds to stated dates 2. Niche present in lower uterine segment, no evidence of uterine dehiscence 3. Normal uterus and adnexa Narrative Procedure Note Bina Michaud MD - 09/23/2024 IMPRESSION: IUP at 13+5 for viability, evaluation of CS scar 1. CRL corresponds to stated dates 2. Niche present in lower uterine segment, no evidence of uterinedehiscence 3. Normal uterus and adnexa Odalis Cheatham MD IMG OB US PROCEDURES Final Result * HIV 1/2 Antibody plus p24 Antigen Blood (08/31/2024) SCRIBED HIV P24 Nonreactive Nonreactive , Invalid Blood Ysabel Ku NP LAB MICROBIOLOGY - GENERAL OR DERABLES Final Result * Hepatitis C antibody Blood (08/31/2024) SCRIBED HCV ab non-reacti ve Blood Ysabel Ku NP LAB MICROBIOLOGY - GENERAL OR DERABLES Final Result * ABO/Rh (08/31/2024) SCRIBED ABO/Rh O- Blood Ysabel Ku NP LAB BLOOD BANK TEST ORDERABLE S Final Result * Rubella IgG antibody Blood (08/31/2024) Rubella IgG Scribed Immune Blood Ysabel Ku NP LAB MICROBIOLOGY - GENERAL OR DERABLES Final Result * RPR Blood (08/31/2024) SCRIBED RPR Non-Reacti ve Non-Reacti ve Blood Result [facility] Ysabel Ku NP LAB MICROBIOLOGY - GENERAL OR DERABLES Final Result * Hepatitis B Surface Antigen Blood (08/31/2024) SCRIBED HBsAg Nonreactive Nonreactive , Invalid Blood Ysabel Ku NP LAB MICROBIOLOGY - GENERAL OR DERABLES Final Result * CBC without differential (08/31/2024) Hct 38.6 Hgb 13.3 Plt 298 Blood Ysabel Ku LAB BLOOD ORDERABLES Final Re sult * Antibody screen (08/31/2024) SCRIBED Indirect Antiglobulin negative Blood Ysabel Ku LAB BLOOD BANK TEST ORDERABLE S Final Result * Chlamydia trachomatis culture (08/31/2024) SCRIBED Chlamydia culture negative Ysabel Ku LAB MICROBIOLOGY - GENERAL OR DERABLES Final Result * Urine culture (08/31/2024) Pathologist [facility] SCRIBED Urine culture no growth Ysabel Ku LAB MICROBIOLOGY - GENERAL OR DERABLES Final Result * N. gonorrhoeae culture (08/31/2024) SCRIBED Gonorrhea culture negative Result [facility] Ysabel Ku LAB MICROBIOLOGY - GENERAL OR DERABLES Final Result * Varicella Zoster IgG antibody Blood (08/31/2024) SCRIBED Varicella Zoster, IgG Positive Blood Ysabel Ku LAB MICROBIOLOGY - GENERAL OR DERABLES Final Result * Hemoglobin A1c (08/31/2024) SCRIBED Hemoglobin A1c 4.7 4.0 - 5.6 % Blood Ysabel Ku LAB BLOOD ORDERABLES Final Re sult from Last 3 Months [place] [employer] [facility] Advance Directives For more information, please contact: [phone] * Full Code (Latest Code Status on File) Date Activated Date Inactivated Comments 12/17/2023 7:44 PM 12/20/2023 5:06 PM * Full Code Date Activated Date Inactivated Comments 12/17/2023 12:58 PM 12/17/2023 7:44 PM * Full Code Date Activated Date Inactivated Comments 10/17/2021 12:26 PM 10/19/2021 4:48 PM * Full Code Date Activated Date Inactivated Comments 10/17/2021 7:27 AM 10/17/2021 12:26 PM Full CPR in case of cardiopulmonary arrest Care Teams Survey Field Technician Relationship Specialty Start Date End Date No, Physician PCP - General 10/07/23 Summer Nguyễn MD [address] [place] [id number] Consulting Physician Obstetrics and Gynecology 10/19/21
--- OUTSIDE RECORDS SUMMARY | 2024-11-02 11:45 | XMS_ITS | Data Portability ---
Author Organization [employer] , [facility] Address [address] [place] [address] Care Team Providers Care Lab Support Service Tech Name Role Phone [facility] Bus Inspector Assessment Encounter Date Assessment Date Assessment LastModified by Organization Details LastModified Time 07/27/2024 07/27/2024 - 24-year-old female with a history of one miscarriage presenting with a confirmed positive test. - Early without severe complications noted, with mild cramping but no bleeding at this time. - Has experienced depression previously, now improved with prior treatment. - Acknowledgement of family predisposition to preeclampsia, baby aspirin planned by 12 weeks gestation. - Comprehensive early management and anticipatory guidance discussed. History Of Positive Shaye: - Acknowledged with past rheumatology evaluation repeat SHAYE was negative is no longer following up with rheumatology, no immediate concerns noted. Not available 07/27/2024 14:29:59 Plan of Treatment Reminders Order Date Submit Date Provider Last Modified By Organization Details Last Modified Time Details Appointments None recorded. Lab hemoglobin A1c, QN, blood 2024 025 [employer], [address] [place], [address], 5 12:31:19 abo group + rh type, blood 2024 025 [facility], [address] [facility], [place], [address], 15:24:12 CBC w/ auto diff 2024 025 [facility], [address] [place], [address], 5 13:02:38 CT + NG DNA, PCR, unspecified specimen 2024 025 [facility], [address] [place], [address], 5 14:38:12 drug of abuse panel, urine 2024 025 [facility], [address] [place], [address], 5 12:39:49 obstetric screen + HIV, serum or blood 2024 025 [facility], [address] [place], [address], 5 15:21:10 measles igg Ab, serum 2024 025 [facility], [address] [place], [address], 5 15:24:10 culture, urine 2024 025 [facility], [address] [place], [address], 5 21:36:03 varicella-z homer igg Ab screen, serum 2024 025 [facility], [address] [place], [address], 5 15:24:09 antibody screen, serum or plasma 2024 025 [facility], [address] [place], [address], 5 15:24:11 urinalysis, dipstick 2024 025 [email or web address] [place], [address] [place] [address], [address], 5 16:45:36 urinalysis, dipstick 2024 025 [facility], [address] [facility], [place], [address], 5 13:34:33 culture, urine 2024 025 [facility], [address] [place], [address], 5 22:09:48 test, urine 2024 025 [facility], [address] [place], [address], 5 12:02:30 beta-HCG, quantitativ e, serum or plasma 2024 025 [facility], [address] [place], [address], 5 14:06:36 CBC w/ auto diff 2023 024 [facility], [address] [place], [address], 4 11:15:28 SHAYE (antinuclea r antibodies) screen, serum 2023 024 [facility], [address] [place], [address], 4 16:04:13 Referral rheumatolog ist referral - pos shaye 1:80 w/ and speckled [address] [facility] ([facility] ), [address] [facility], , [place], [address], 4 18:07:31 Procedures None recorded. Surgeries None recorded. Imaging US, obstetric, transvagina l 04/07/ 2025 04/07/2 025 R[facility], [address] [place], [address], 5 13:57:26 US, transvagina l 2024 025 [email or web address] [facility], [address] [place], [address], 5 15:46:31 Medication Orders aspirin 81 mg tablet,clive yed release 2024 025 R[id number], [address] [place], [address], 5 22:31:54 Vitamin 27 mg iron-0.8 mg tablet 2024 025 [email or web address] [id number], [address] [place], [address], 5 12:02:36 norethindro ne (contracept demetris) 0.35 mg tablet 2023 024 RICARDA [id number], [address] [place], [address], 5 11:30:46 Patient TargetsNo targets recorded. Patient Instructions Encounter Date Encounter Id Patient Instructions Last Modified By Organization Details Last Modified Time 02/05/2024 [id number] depression after childbirth: care instructions Not available 02/05/2024 12:03:55 Care at Home With Your Baby: Care Instructions Not available 02/05/2024 12:03:55 control after counseling Not available 02/05/2024 12:03:55 07/27/2024 [id number] [facility] OB Booklet Not available 07/27/2024 12:02:30 - Begin taking prescribed vitamins daily as soon as they are ready. - Monitor any cramping or bleeding. If severe or accompanied by other symptoms, seek medical attention promptly. - Avoid unnecessary early ultrasound to prevent anxiety; plan for one closer to around eight weeks gestation. - Remember family history risk; plan for baby aspirin initiation around 12 weeks. - Pay attention to any changes in mood or depression symptoms and seek care if necessary. - Continue with dietary and safety measures as discussed, including opting for safe food handling and appropriate hydration. [email or web address] Not available 07/27/2024 12:13:02 During our appointment today, we have confirmed the current gestation is approximately five weeks, with a positive urine test and ongoing mild cramps, which are currently not severe. We discussed the typical timeline and limitations of early ultrasound examinations, noting that performing an ultrasound too early can provoke unnecessary anxiety due to minimal visible development. We also addressed the family history of preeclampsia and its implications. It was decided that baby aspirin might be beneficial around the 12-week patricia as a precautionary measure. The patient has yet to commence vitamins, and I have arranged for a prescription to be directed to her pharmacy. Education regarding dietary caution and general health was reviewed, reinforcing hydration, appropriate food choices, and supplements. Concerns regarding past depression were discussed; the patient reports resolution with the medication Zirzuve in past treatments. Overall, today's meeting aimed to facilitate understanding and continued monitoring of the current status. [email or web address] Not available 07/27/2024 12:13:03 Reason for Referral Lining Machine Tender Referral for Anti-nuclear factor detected pos shaye 1:80 w/ and speckled Referring Physician: Danilo Reynoso, HARDSCAPE FOREMAN, Encounter Date: 02/05/2024 Results Created Date Observation Date Name Description Value Unit Range Abnormal Flag Note LastModifiedBy Organization Detail LastModifiedTime 02/06/20 24 02/06/2024 SHAYE MULTI PLEX W/REF CHASITY 11 AB CASCA DE SHAYE screen, immunoassay NEGATI VE negati ve normal A negat demetris SHAYE Multi plex indic ates the absen ce of detec table antib odies to compo nent christine joey consi sting of doubl e stran ded DNA (dsDN A), chrom atin, ribon ucleo prote in (WINDOW SASH INSTALLER) , Wolf /WINDOW SASH INSTALLER (Sm/R STORES DESPATCH HAND), Wolf (Sm), SS-A, SS-B, Kylee-1, centr omere B, Scl-7 0 and ribos omal P. A negat demetris juan luis t shoshiela d be inter prete d in the arpan xt of the clini jose and labor atory findi ngs and does not rule out autoi mmune disea se danie cteri zed by other autoa ntibo dy speci ficit ies such as rheum atoid arthr itis, autoi mmune hepat itis, prima ry bilia ry cirrh osis, autoi mmune thyro iditi s, Lesley on's disea se, perni cious anemi a, autoi mmune neuro pathi es, vascu litis , kristine c disea se, and bullo us disea se. For addit ional infor ahmet heath refer to http: //[facility] silvia doe.Que stDia gnost ics.c om/fa q/FAQ 177 (This link is being provi ded for infor maral yang/ educa sheela l purpo ses only. ) NO COLLE CTION DATE RECEI KAYLEIGH. WE HAVE USED THE DATE THE SPECI MEN WAS RECEI KAYLEIGH BY THIS LABOR ATORY THE COLLE CTION DATE. IF THIS IS INCOR RECT, AHMET E CONTA CT CLIEN T SERVI VALENTIN. PHONE NUMBE R: [phone] Not Available [facility] [address] [place], [address], 02/06/2024 16:04:13 07/30/19 25 07/29/2024 HCG, TOTAL , QUANT HCG, total, quant Forwar ding to [facility] due to analyz er down time Not Available [facility] [address] [place], [address], 07/29/2024 14:06:36 08/01/19 25 07/31/2024 HCG, TOTAL , QUANT HCG, total, quant [address]65 mIU/m L <5 high Refer ence Range s are for femal es aged 18 years - Adult Nonpr egnan t or preme nopau damaris <5 Postm enopa usal <10 Value s from diffe rent assay metho ds may vary. The use of this assay to monit or or to diagn ose patie nts with cance r or any other condi tion unrel ated to pregn joann has not been valid ated by the florentinf actur jennifer of this assay . Not Available [address], [address], 07/31/2024 15:34:23 02/05/2002/06/2024 CBC (INCL UDES DIFF/ PLT) WBC 9.2 thous and/u L 4.0 - 9.8 normal Not Available [address], [address], 02/06/2024 11:15:28 02/05/2002/06/2024 CBC (INCL UDES DIFF/ PLT) RBC 4.6 chance on/uL 3.9 - 4.9 normal Not Available [address], [address], 02/06/2024 11:15:28 02/05/20 24 02/06/2024 CBC (INCL UDES DIFF/ PLT) hemoglobin 13.1 g/dL 11.8 - 14.8 normal Not Available [address], [address], 02/06/2024 11:15:28 02/05/20 24 02/06/2024 CBC (INCL UDES DIFF/ PLT) hematocrit 39.4 % 35.5 - 44.0 normal Not Available [address], [address], 02/06/2024 11:15:28 02/05/20 24 02/06/2024 CBC (INCL UDES DIFF/ PLT) MCV 86.2 fL 82.0 - 99.0 normal Not Available [address], [address], 02/06/2024 11:15:28 02/05/20 24 02/06/2024 CBC (INCL UDES DIFF/ PLT) MCH 28.7 pg 27.2 - 32.6 normal Not Available [address], [address], 02/06/2024 11:15:28 02/05/2002/06/2024 CBC (INCL UDES DIFF/ PLT) MCHC 33.2 g/dL 31.5 - 35.5 normal Not Available [address], [address], 02/06/2024 11:15:28 02/05/2002/06/2024 CBC (INCL UDES DIFF/ PLT) RDW-CV 13.4 % 11.5 - 14.5 normal Not Available [address], [address], 02/06/2024 11:15:28 02/05/2002/06/2024 CBC (INCL UDES DIFF/ PLT) platelet 322 thous and/u L 140 - 350 normal Not Available [address], [address], 02/06/2024 11:15:28 02/05/2002/06/2024 CBC (INCL UDES DIFF/ PLT) MPV 11.2 fL 9.3 - 12.4 normal Not Available [address], [address], 02/06/2024 11:15:28 02/05/2002/06/2024 CBC (INCL UDES DIFF/ PLT) absolute neutrophil 6.19 thous and/u L 1.90 - 7.00 normal Not Available [address], [address], 02/06/2024 11:15:28 02/05/2002/06/2024 CBC (INCL UDES DIFF/ PLT) absolute lymphocyte 1.87 thous and/u L 0.70 - 4.50 normal Not Available [address], [address], 02/06/2024 11:15:28 02/05/2002/06/2024 CBC (INCL UDES DIFF/ PLT) absolute monocyte 0.74 thous and/u L 0.10 - 1.30 normal Not Available [address], [address], 02/06/2024 11:15:28 02/05/20 24 02/06/2024 CBC (INCL UDES DIFF/ PLT) absolute eosinophil 0.38 thous and/u L <0.70 normal Not Available [address], [address], 02/06/2024 11:15:28 02/05/20 24 02/06/2024 CBC (INCL UDES DIFF/ PLT) absolute basophil 0.05 thous and/u L <0.20 normal Not Available [address], [address], 02/06/2024 11:15:28 02/05/20 24 02/06/2024 CBC (INCL UDES DIFF/ PLT) absolute immature granulocyte 0.00 thous and/u L <0.03 normal Not Available [address], [address], 02/06/2024 11:15:28 07/28/19 25 07/30/2024 HCG, TOTAL , QN HCG, total, qn 9227 mIU/m L high Refer ence Range Nonpr egnan t or preme nopau damaris <5 Postm enopa usal <10 Value s from diffe rent assay metho ds may vary. The use of this assay to monit or or to diagn ose patie nts with cance r or any condi tion unrel ated to pregn joann has not been clear ed or appro kayleigh by the FDA or the [facility] actur er of the assay . Not Available [facility] [address] [facility], [place], [address], 07/30/2024 13:04:26 07/28/19 25 07/27/2024 pregn joann test, urine HCG positi ve Not Available [facility] [address] [place], [address], 07/24/2024 13:32:52 08/11/19 25 08/11/2024 CULTU RE, URINE , ROUTI NE culture, urine, routine SEE NOTE CULTU RE, URINE , ROUTI NE Micro Numbe r: [id number] Test Statu s: Final Speci men Sourc e: Urine Speci men Quali ty: Adequ ate Resul t: No Growt h Not Available [facility] [address] [place], [address], 08/11/2024 22:09:48 08/11/1908/10/2024 urina lysis , dipst ick Leukocytes Negati ve Not Available [address], [address], 08/10/2024 13:32:16 08/11/19 25 08/10/2024 urina lysis , dipst ick Nitrite negati ve Not Available [address], [address], 08/10/2024 13:32:16 08/11/19 25 08/10/2024 urina lysis , dipst ick Urobilinogen .2 Not Available [address], [address], 08/10/2024 13:32:16 08/11/19 25 08/10/2024 urina lysis , dipst ick Protein Trace Not Available [address], [address], 08/10/2024 13:32:16 08/11/19 25 08/10/2024 urina lysis , dipst ick Blood Negati ve Not Available [address], [address], 08/10/2024 13:32:16 08/11/19 25 08/10/2024 urina lysis , dipst ick Ketone Negati ve Not Available [address], [place], [address], 08/10/2024 13:32:16 08/11/19 25 08/10/2024 urina lysis , dipst ick Bilirubin Negati ve Not Available [address], [place], [address], 08/10/2024 13:32:16 08/11/19 25 08/10/2024 urina lysis , dipst ick Glucose Negati ve Not Available [address], [place], [address], 08/10/2024 13:32:16 08/11/19 25 08/10/2024 urina lysis , dipst ick Appearance Slight ly Cloudy Not Available [address], [place], [address], 08/10/2024 13:32:16 08/11/19 25 08/10/2024 urina lysis , dipst ick Color Yellow Not Available [address], [place], [address], 08/10/2024 13:32:16 08/28/19 25 08/27/2024 urina lysis , dipst ick Leukocytes Negati ve Not Available [facility] [address], [place], [address], 08/27/2024 16:44:35 08/28/19 25 08/27/2024 urina lysis , dipst ick Nitrite negati ve Not Available [facility] [address], [place], [address], 08/27/2024 16:44:35 08/28/19 25 08/27/2024 urina lysis , dipst ick Urobilinogen .2 Not Available [facility] [address], [place], [address], 08/27/2024 16:44:35 08/28/19 25 08/27/2024 urina lysis , dipst ick Protein Negati ve Not Available [address], [place], [address], 08/27/2024 16:44:35 08/28/19 25 08/27/2024 urina lysis , dipst ick pH 7.0 Not Available [address], [place], [address], 08/27/2024 16:44:35 08/28/19 25 08/27/2024 urina lysis , dipst ick Blood Negati ve Not Available [address], [place], [address], 08/27/2024 16:44:35 08/28/19 25 08/27/2024 urina lysis , dipst ick Specific Firth 1.025 Not Available [facility] [address], [place], [address], 08/27/2024 16:44:35 08/28/19 25 08/27/2024 urina lysis , dipst ick Ketone Negati ve Not Available [address], [place], [address], 08/27/2024 16:44:35 08/28/19 25 08/27/2024 urina lysis , dipst ick Bilirubin Negati ve Not Available [facility] [address], [place], [address], 08/27/2024 16:44:35 08/28/19 25 08/27/2024 urina lysis , dipst ick Glucose Negati ve Not Available [facility] [address], [place], [address], 08/27/2024 16:44:35 08/28/19 25 08/27/2024 urina lysis , dipst ick Appearance Cloudy Not Available [facility] [address], [place], [address], 08/27/2024 16:44:35 08/28/19 25 08/27/2024 urina lysis , dipst ick Color Dark Yellow Not Available [facility] [address], [place], [address], 08/27/2024 16:44:35 09/01/19 25 09/01/2024 HEMOG LOBIN A1C hemoglobin A1C 4.7 % <5.7 normal The refer ence range for HbA1c is indic ated in the table below . Sugge sted Diagn osis =6.5% Consi stent with diabe joey 5.7 6.4% Consi stent with incre ased risk for diabe joey (pred iabet ic) <5.7% Consi stent with the absen ce of diabe joey Not Available [facility] [address] [place], [address], 09/01/2024 12:31:18 09/01/19 25 09/01/2024 CBC (INCL UDES DIFF/ PLT) WBC 9.4 thous and/u L 4.0 - 9.8 normal Not Available [facility]ne [address]man [address] [place], [address], 09/01/2024 13:02:37 09/01/19 25 09/01/2024 CBC (INCL UDES DIFF/ PLT) RBC 4.4 chance on/uL 3.9 - 4.9 normal Not Available [address], [address], 09/01/2024 13:02:37 09/01/19 25 09/01/2024 CBC (INCL UDES DIFF/ PLT) hemoglobin 13.3 g/dL 11.8 - 14.8 normal Not Available [address], [address], 09/01/2024 13:02:37 09/01/19 25 09/01/2024 CBC (INCL UDES DIFF/ PLT) hematocrit 38.6 % 35.5 - 44.0 normal Not Available [address], [address], 09/01/2024 13:02:37 09/01/19 25 09/01/2024 CBC (INCL UDES DIFF/ PLT) MCV 87.9 fL 82.0 - 99.0 normal Not Available [address], [address], 09/01/2024 13:02:37 09/01/19 25 09/01/2024 CBC (INCL UDES DIFF/ PLT) MCH 30.3 pg 27.2 - 32.6 normal Not Available [address], [address], 09/01/2024 13:02:37 09/01/19 25 09/01/2024 CBC (INCL UDES DIFF/ PLT) MCHC 34.5 g/dL 31.5 - 35.5 normal Not Available [address], [address], 09/01/2024 13:02:37 09/01/19 25 09/01/2024 CBC (INCL UDES DIFF/ PLT) RDW-CV 12.4 % 11.5 - 14.5 normal Not Available [address], [address], 09/01/2024 13:02:37 09/01/19 25 09/01/2024 CBC (INCL UDES DIFF/ PLT) platelet 298 thous and/u L 140 - 350 normal Not Available [address], [address], 09/01/2024 13:02:37 09/01/19 25 09/01/2024 CBC (INCL UDES DIFF/ PLT) MPV 11.1 fL 9.3 - 12.4 normal Not Available [address], [address], 09/01/2024 13:02:37 09/01/19 25 09/01/2024 CBC (INCL UDES DIFF/ PLT) absolute neutrophil 6.49 thous and/u L 1.90 - 7.00 normal Not Available [address], [address], 09/01/2024 13:02:37 09/01/19 25 09/01/2024 CBC (INCL UDES DIFF/ PLT) absolute lymphocyte 2.06 thous and/u L 0.70 - 4.50 normal Not Available [address], [address], 09/01/2024 13:02:37 09/01/19 25 09/01/2024 CBC (INCL UDES DIFF/ PLT) absolute monocyte 0.66 thous and/u L 0.10 - 1.30 normal Not Available [address], [address], 09/01/2024 13:02:37 09/01/19 25 09/01/2024 CBC (INCL UDES DIFF/ PLT) absolute eosinophil 0.15 thous and/u L <0.70 normal Not Available [address], [address], 09/01/2024 13:02:37 09/01/19 25 09/01/2024 CBC (INCL UDES DIFF/ PLT) absolute basophil 0.05 thous and/u L <0.20 normal Not Available [address], [address], 09/01/2024 13:02:37 09/01/19 25 09/01/2024 CBC (INCL UDES DIFF/ PLT) absolute immature granulocyte 0.01 thous and/u L <0.03 normal Not Available [address], [address], 09/01/2024 13:02:37 09/01/19 25 09/01/2024 OB PANEL - STD BLOOD WORK hep BS Ag Non-Re active non-re active normal Not Available [address], [address], 09/01/2024 15:21:10 09/01/19 25 09/01/2024 OB PANEL - STD BLOOD WORK hep C Ab Non-Re active non-re active normal Not Available [address], [address], 09/01/2024 15:21:10 09/01/19 25 09/01/2024 OB PANEL - STD BLOOD WORK HIV 1/2 Ag/Ab Non-Re active non-re active normal Not Available [address], [address], 09/01/2024 15:21:10 09/01/19 25 09/01/2024 OB PANEL - STD BLOOD WORK syphilis Ab Non-Re active non-re active normal Not Available [address], [address], 09/01/2024 15:21:10 09/01/19 25 09/01/2024 OB PANEL - STD BLOOD WORK rubella Ab IgG 30.1 IU/mL normal INTER PRETI VE INFOR MATIO N: Rubel la Antib fide, IgG. < 5.0 IU/mL ..... ..... . Not consi stent with immun ity 5.0 - 9.9 IU/mL ..... . Equiv ocal: Indet ermin ate-R epeat testi ng in 10-14 days may be helpf ul. > or = 10.0 IU/mL ... Consi stent with immun ity The prese nce of Rubel la IgG antib fide sugge st respo nse to immun izati on or prior /curr ent expos ure to the Rubel la virus . Not Available [facility] [address] [place], [address], 09/01/2024 15:21:10 09/01/19 25 09/01/2024 VARIC EFE ZOSTE R VIRUS ANTIB FIDE (IGG) varicella zoster virus antibody (IgG) 7.59 S/co normal Signa l to Cut-o ff S/CO Inter preta tion ----- ---- ----- ----- ----- ----- -- <1.00 Negat demetris - Antib fide not detec benjamin > or = 1.00 Posit demetris - Antib fide detec benjamin A posit demetris resul t indic ates that the patie nt has antib fide to VZV but does not diffe renti ate betwe en an activ e or past infec tion. The clini jose diagn osis must be inter prete d in conju nctio n with the clini jose signs and sympt oms of the patie nt. This assay relia esther measu res immun ity due to previ ous infec tion but may not be sensi tive enoug h to detec t antib odies induc ed by vacci natio n. Thus, a negat demetris resul t in a vacci nated indiv idual does not neces saril y indic ate susce ptibi lity to VZV infec tion. A more sensi tive test for vacci natio n-ind uced immun ity is Varic efe Zoste r Virus Antib fide Immun ity Scree n, ACIF. Not Available [facility] [address], [place], [address], 09/01/2024 15:24:09 09/01/19 25 09/01/2024 MEASL ES AB (IGG) , IMMUN E STATU S measles Ab (IgG), immune status 69.20 AU/mL normal AU/mL Inter preta tion ----- ----- ----- ---- <13.5 0 Not consi stent with immun ity 13.50 -16.4 9 Equiv ocal >16.4 9 Consi stent with immun ity The prese nce of measl es IgG sugge sts immun izati on or past or curre nt infec tion with measl es virus . For addit ional infor ahmet heath e refer to http: //[facility] silvia Casanova stDia gnost ics.c om/fa q/FAQ 162 (This link is being provi ded for infor maral yang/ educa sheela l purpo ses only. ) Not Available [facility] [address] [place] [address] [place], [address], 09/01/2024 15:24:10 09/01/19 25 09/01/2024 ANTIB FIDE SCREE N, RBC W/REF L ID, TITER AND AG antibody screen, RBC w/refl id, titer and Ag NO ANTIBO DIES DETECT ED normal Refer ence range No antib odies detec benjamin This assay is a scree marlen test for the detec tion of red blood cell antib odies . The test is not to be used for pretr ansfu kerry scree marlen or for the medic al manag ement of an alloi mmuni zed pregn joann. Not Available [facility] [address] [address] [place], [address], 09/01/2024 15:24:11 09/01/19 25 09/01/2024 ABO GROUP AND RH TYPE ABO group O Not Available [facility] [address] [address] [place], [address], 09/01/2024 15:24:12 09/01/19 25 09/01/2024 ABO GROUP AND RH TYPE Rh type RH(D) NEGATI VE For addit ional infor ahmet heath e refer to http: //rosaila doe.Que stDia gnost ics.c om/fa q/FAQ 111 (This link is being provi ded for infor maral yang/ nancie herrmann purpo ses only. ) Not Available [facility] [address] , [place], [address], 09/01/2024 15:24:12 09/01/19 25 09/02/2024 DRUG ABUSE PANEL 7 W/CON FIRM amphetamines Negati ve negati ve normal Not Available Rayne [address]man [address] [place], [address], 09/02/2024 12:39:49 09/01/19 25 09/02/2024 DRUG ABUSE PANEL 7 W/CON FIRM barbiturates Negati ve negati ve normal Not Available Rayne [address] [place], [address], 09/02/2024 12:39:49 09/01/19 25 09/02/2024 DRUG ABUSE PANEL 7 W/CON FIRM benzodiazepi elvin Negati ve negati ve normal Not Available Rayne [address] [place], [address], 09/02/2024 12:39:49 09/01/19 25 09/02/2024 DRUG ABUSE PANEL 7 W/CON FIRM cocaine metabolites Negati ve negati ve normal Not Available [facility]ne [address] [place], [address], 09/02/2024 12:39:49 09/01/19 25 09/02/2024 DRUG ABUSE PANEL 7 W/CON FIRM cannabinoids Negati ve negati ve normal Not Available [facility] [place], [address], 09/02/2024 12:39:49 09/01/19 25 09/02/2024 DRUG ABUSE PANEL 7 W/CON FIRM methadone Negati ve negati ve normal Not Available [facility]ne [address] [place], [address], 09/02/2024 12:39:49 09/01/19 25 09/02/2024 DRUG ABUSE PANEL 7 W/CON FIRM opiates Negati ve negati ve normal Not Available [facility]ne Aman [address] [place] [address], [address], 09/02/2024 12:39:49 09/01/19 25 09/02/2024 DRUG ABUSE PANEL 7 W/CON FIRM creatinine, urine 79 mg/dL 20 - 275 normal Not Available [address], [address], 09/02/2024 12:39:49 09/01/19 25 09/02/2024 CT/NG chlamydia trachomatis CT neg negati ve normal This repor t is inten ded for us in clini jose monit oring and manag ement of patie nts. It is not inten ded for use in medic al-le gal appli catio n. Not Available [address], [address], 09/02/2024 14:38:12 09/01/19 25 09/02/2024 CT/NG neisseria gonorrhoeae GC neg negati ve normal This repor t is inten ded for us in clini jose monit oring and manag ement of patie nts. It is not inten ded for use in medic al-le gal appli catio n. Not Available [address], [address], 09/02/2024 14:38:12 09/01/19 25 09/02/2024 CULTU RE, URINE , ROUTI NE culture, urine, routine SEE NOTE CULTU RE, URINE , ROUTI NE Micro Numbe r: [id number] Test Statu s: Final Speci men Sourc e: Urine Speci men Quali ty: Adequ ate Resul t: No Growt h Not Available [facility] [address] [place], [address], 09/02/2024 21:36:03 09/03/19 25 09/02/2024 CHROM OSOME S 13, 18, 21 + SEX CHROM OSOME CHRISTINE SIS chromosomes 13, 18, 21 + sex chromosome analysis Negati ve normal See PDF for compl ete resul ts. Overa ll Resul t: Negat demetris Negat demetris for all order ed condi tions [facility] Notes : * The resid ual risks provi ded repre sent the remai marlen chanc e that the pregn joann is affec benjamin with the indic ated chrom osome aneup loidy in view of a negat demetris resul t. * This is a scree marlen test; there fore, false posit demetris and false negat demetris resul ts can occur . No irrev ersib le decis ion shoul d be made based on these findi ngs alone . Clini jose corre latio n with ultra sound findi ngs and histo ry is indic ated. If defin itive diagn osis is wilian ed, chori onic villu s sampl ing or amnio cente sis is neces cristofer. fract ion: 24.3% - fract ion is one compo nent of the algor ithm used and is combi lashay with other quali ty metri cs to deter mine the aneup loidy scree marlen resul t. Not Available [facility] [address] [place] [address], [address], 09/08/2024 17:15:43 09/09/19 25 09/08/2024 CHROM OSOME S 13, 18, 21 + SEX CHROM OSOME CHRISTINE SIS chromosomes 13, 18, 21 + sex chromosome analysis Negati ve normal See PDF for compl ete resul ts. Overa ll Resul t: Negat demetris Negat demetris for all order ed condi tions [facility] Notes : * The resid ual risks provi ded repre sent the remai marlen chanc e that the pregn joann is affec benjamin with the indic ated chrom osome aneup loidy in view of a negat demetris resul t. * This is a scree marlen test; there fore, false posit demetris and false negat demetris resul ts can occur . No irrev ersib le decis ion shoul d be made based on these findi ngs alone . Clini jose corre latio n with ultra sound findi ngs and histo ry is indic ated. If defin itive diagn osis is wilian ed, chori onic villu s sampl ing or amnio cente sis is neces cristofer. fract ion: 16.3% - fract ion is one compo nent of the algor ithm used and is combi lashay with other quali ty metri cs to deter mine the aneup loidy scree marlen resul t. Not Available [facility] [address], [place], [address], 09/12/2024 16:15:20 07/28/19 25 07/27/2024 US, trans vagin al No observ ation record ed. [email or web address] [address], [place], [address], 07/27/2024 18:01:28 08/11/19 25 08/10/2024 US, obste tric, trans vagin al No observ ation record ed. [email or web address] [address], [place], [address], 08/10/2024 13:57:26 Result Notes None recorded. Problems Name Problem SNOMED Code Status Onset Date Resolution Date Notes Provider Name and Address Organization Details Recorded Time finding Completed 202009/08/2020 Maternal care for other known or suspecte d poor growth, unspecif ied trimeste r, not applicab le or unspecif ied; Progress : Stable Added By: Zaida Nix Add to Current Problems : NO ProblemS tatus: Resolve Not Available [facility] 2 08:27:50 Lochia finding Completed 202006/19/2021 Encounte r for routine postpart um follow-u p; Severity : Moderate Progress : Stable Added By: Clementina Crenshaw Add to Current Problems : YES ProblemS tatus: Current URSULA ALEJANDRO CNM [address], [place], [address] , [place] - [employer] [facility] 2 11:14:39 Gestatio n period, 34 weeks [id number] Completed 202009/08/2020 34 weeks gestatio n of pregnanc y; Progress : Stable Added By: Balta Rosa Add to Current Problems : NO ProblemS tatus: Resolve Annie Johnston null, [place] [facility] 3 10:02:51 Abnormal radiolog ical finding on antenata l screenin g of mother [id number] Completed 202009/08/2020 Abnormal radiolog ical finding on antenata l screenin g of mother; Progress : Stable Added By: Carson Khan Add to Current Problems : NO ProblemS tatus: Resolve Annie Johnston null, [place] [facility] 3 10:01:53 Gestatio n period, 21 weeks [id number] Completed 202009/08/2020 21 weeks gestatio n of pregnanc y; Progress : Stable Added By: Autumn Wing Add to Current Problems : NO ProblemS tatus: Resolve Annie Johnston null, [place] [facility] 3 10:02:21 Gestatio n period, 15 weeks [id number] Completed 201905/09/2020 15 weeks gestatio n of pregnanc y; Progress : Stable Added By: Balta Rosa Add to Current Problems : NO ProblemS tatus: Resolve Annie Johnston null, [place] [facility] 3 10:02:16 Mental disorder in mother complica ting pregnanc y [id number] Completed 202009/08/2020 Other mental disorder s complica ting pregnanc y, unspecif ied trimeste r; Progress : Stable Added By: Stephanie Martins Add to Current Problems : NO ProblemS tatus: Resolve Annie Johnston null, [place] [facility] 3 10:03:04 Gestatio n period, 32 weeks [id number] Completed 202009/08/2020 32 weeks gestatio n of pregnanc y; Progress : Stable Added By: Autumn Wing Add to Current Problems : NO ProblemS tatus: Resolve Ashlyn Jonhston null, [place] [facility] 4 15:08:02 Gestatio n period, 33 weeks [id number] Completed 202009/08/2020 33 weeks gestatio n of pregnanc y; Progress : Stable Added By: Kika Lundberg Add to Current Problems : NO ProblemS tatus: Resolve Annie Johnston null, [place] [facility] 3 10:02:49 Hyperten sive disorder Completed 202010/28/2020 Unspecif ied maternal hyperten kerry, unspecif ied trimeste r; Progress : Stable Added By: Autumn Wing Add to Current Problems : NO ProblemS tatus: Resolve Not Available [facility] 2 08:27:53 finding Completed 202009/08/2020 Maternal care for other known or suspecte d poor growth, unspecif ied trimeste r, fetus 2; Progress : Stable Added By: Carson Khan Add to Current Problems : NO ProblemS tatus: Resolve Not Available [facility] 2 08:27:50 Gestatio n period, 8 weeks [id number] Completed 201905/09/2020 8 weeks gestatio n of pregnanc y; Progress : Stable Added By: Serena Figueroa Add to Current Problems : NO ProblemS tatus: Resolve Annie Johnston null, [place] [facility] 3 10:02:58 Gestatio n period, 37 weeks [id number] Completed 202009/08/2020 37 weeks gestatio n of pregnanc y; Progress : Stable Added By: Stephanie Martins Add to Current Problems : NO ProblemS tatus: Resolve nAnie [place] null, [place] [facility] 3 10:02:56 Threaten ed miscarri age [id number] Completed 201905/09/2020 Threaten ed ; Progress : Stable Added By: Shauna Dela Cruz Add to Current Problems : NO ProblemS tatus: Resolve Annie Johnston null, [place] [facility] 3 10:03:20 Clinical finding Completed 201905/09/2020 Other specifie d disorder s of amniotic fluid and membrane s, second trimeste r, fetus 1; Progress : Stable Added By: Autumn Wing Add to Current Problems : NO ProblemS tatus: Resolve Not Available [facility] 2 08:27:50 Gestatio n period, 11 weeks [id number] Completed 201905/09/2020 11 weeks gestatio n of pregnanc y; Progress : Stable Added By: Balta Rosa Add to Current Problems : NO ProblemS tatus: Resolve Annie kimbrough, [place] [facility] 3 10:02:11 Gestatio n period, 30 weeks [id number] Completed 202009/08/2020 30 weeks gestatio n of pregnanc y; Progress : Stable Added By: Alyssa Mckenzie Add to Current Problems : NO ProblemS tatus: Resolve Annie kimbrough, [place] [facility] 3 10:02:32 Procedur e on genitour inary system Completed 202010/28/2020 Encounte r for surgical aftercar e followin g surgery on the genitour inary system; Progress : Stable Added By: Susie Arreguin Add to Current Problems : NO ProblemS tatus: Resolve Annie kimbrough, [place] [facility] 3 10:03:11 Postoper ative care Completed 202010/28/2020 Encounte r for surgical aftercar e followin g surgery on the genitour inary system; Progress : Stable Added By: Susie Arreguin Add to Current Problems : NO ProblemS tatus: Resolve Annie kimbrough, [place] [facility] 3 10:03:09 Gestatio n period, 24 weeks [id number] Completed 202009/08/2020 24 weeks gestatio n of pregnanc y; Progress : Stable Added By: Balta Rosa Add to Current Problems : NO ProblemS tatus: Resolve Annie kimbrough[place] [facility] 3 10:02:24 Normal pregnanc y in multigra linda [id number] Completed 202009/08/2020 Encounte r for supervis ion of other normal pregnanc y, first trimeste r; Progress : Stable Added By: Balta Rosa Add to Current Problems : NO ProblemS tatus: Resolve; Start Date : 01/26/20 20 Encou nter for supervis ion of other normal pregnanc y, second trimeste r; Progress : Stable Added By: Balta Rosa Add to Current Problems : NO ProblemS tatus: Resolve; Start Date : 04/06/20 20 Encou nter for supervis ion of other normal pregnanc y, third trimeste r; Progress : Stable Added By: Carleen Feldman Add to Current Problems : NO ProblemS tatus: Resolve Annie Johnston null, [facility] 3 10:03:07 Gestatio n period, 29 weeks [id number] Completed 202009/08/2020 29 weeks gestatio n of pregnanc y; Progress : Stable Added By: Alyssa Mckenzie Add to Current Problems : NO ProblemS tatus: Resolve Annie Johnston null, [facility] 3 10:02:29 Gestatio n period, 31 weeks [id number] Completed 202009/08/2020 31 weeks gestatio n of pregnanc y; Progress : Stable Added By: Carleen Feldman Add to Current Problems : NO ProblemS tatus: Resolve Annie Johnston null, [employer] [facility] 3 10:02:44 Pregnanc y [id number] Completed 202007/23/2022 AYALA ANDERSON, [facility] [address] [place], [address] , [facility] [employer] [facility] IV 5 22:48:23 History of growth retardat ion [id number] 108 Completed 08/22: Growth EFW 1356 gm/34.8% ile, Femur5 %ile, 5-27= 10% and bpp8/8 and s/.d =3.31 Jennifer Moncada null, [email or web address] [facility] IV 3 09:44:37 Past pregnanc y history of section [id number] Completed 2020 emergenc y CS face presenta tion - desires repeat CS for delivery Jennifer Moncada null, [employer] [facility] 3 09:44:37 Antenata l screenin g Completed 202009/08/2020 Encounte r for antenata l screenin g for Streptoc occus B; Progress : Stable Added By: Kingston Roblero Add to Current Problems : NO ProblemS tatus: Resolve Encounte r for other specifie d antenata l screenin g; Progress : Stable Added By: Stephanie Martins Add to Current Problems : NO ProblemS tatus: Resolve; Start Date : 01/26/20 Annie Johnston null, [place] [facility] 3 10:01:57 Antenata l screenin g for malforma tion Completed 202009/08/2020 Encounte r for antenata l screenin g for malforma tions; Progress : Stable Added By: Carson Khan Add to Current Problems : NO ProblemS tatus: Resolve Annie Johnston null, [place] [facility] 3 10:02:01 Medical examinat ion for suspecte d conditio n Completed 201905/09/2020 Encounte r for suspecte d problem with amniotic cavity and membrane ruled out; Progress : Stable Added By: Autumn Wing Add to Current Problems : NO ProblemS tatus: Resolve Annie Johnston null, [place] [facility] 3 10:03:01 Screenin g for malignan t neoplasm of cervix Completed 201905/09/2020 Encounte r for screenin g for malignan t neoplasm of cervix; Progress : Stable Added By: Serena Figueroa Add to Current Problems : NO ProblemS tatus: Resolve Annie Johnston null, [employer] [facility] 3 10:03:17 Blood group O Rh(D) negative [id number] Completed [facility] Jennifer Moncada null, [employer] - [facility] 3 09:44:37 Pregnanc y [id number] Completed 202302/05/2024 JONATHAN BROWNING [address] [place] [address], [phone] , [facility] 5 22:48:23 Past pregnanc y history of section [id number] Completed x 2 at [facility] and Dr Gabriel and then Dr Bereket freedman and has a boy and a girl IUGR with them and we will do RLTCs and no tubal Danilo Reynoso MD [address] [place] [address], [address] , [facility] - [facility] 4 17:01:24 History of growth retardat ion [id number] 108 Completed 2023 growth at 37 weeks and is at 90% Danilo Reynoso MD [address] [place] [address], [address] , [facility] - [facility] 4 17:30:33 Mixed anxiety and depressi ve disorder 422404509 Active 2023 Jen Ledezma MARIE [address] [place] [address], [address] , [facility] - [facility] 4 13:18:00 Postpart um depressi on 27838150 Active 2023 Jen Ledezma MARIE [address] [place] [address], [phone] , [facility] - [facility] 4 13:18:25 Pregnanc y 84051600 Active 2024 JONATHAN BROWNING [address] [place] [address], [phone] , [facility] [employer] [facility] IV 5 22:48:23 Past pregnanc y history of section 416405596 Active 2024 CS x3- discusse d with Dr Reynoso he recommen ds RLTCS with tubal at 38 weeks due to thinning of lower uterine segment noted during section JONATHAN BROWNING [address] [place] [address], [phone] , [facility] [employer] [facility] IV 5 22:53:06 History of depressi on 243780292 Active 04/07/ 2025 History of PPD with last pregnanc y JONATHAN BROWNING [address] [place], [address] , [employer] - [facility] 5 22:51:09 Finding of pattern of pregnanc y 274500968 Active 2024 short interval pregnanc y with delivery on 12/17/23 JONATHAN BROWNING [address] [place], [address] , [employer] [facility] 5 22:59:04 Body mass index 30+ - obesity 306179777 Active 2024 BMI pre-preg 31.8 JONATHAN BROWNING [address] [place], [address] , [facility] - [facility] 5 22:28:05 Gestatio n period, 20 weeks [id number] Completed 202009/08/2020 20 weeks gestatio n of pregnanc y; Progress : Stable Added By: Carson Khan Add to Current Problems : NO ProblemS tatus: Resolve Annie Johnston null, [employer] - [facility] 3 10:02:19 Uncertai n viabilit y of pregnanc y 824884064 Completed 201905/09/2020 Pregnanc y with inconclu sive viabilit y, fetus 1; Progress : Stable Added By: Serena Figueroa Add to Current Problems : NO ProblemS tatus: Resolve Annie Johnston null, [employer] - [facility] 3 10:03:22 Pruritic urticari al papules and plaques of pregnanc y 79473470 Completed 202010/28/2020 Pruritic urticari al papules and plaques of pregnanc y (PUPPP); Progress : Stable Added By: Ashlyn Johnston Add to Current Problems : NO ProblemS tatus: Resolve Annie Johnston null, [employer] [facility] 3 10:03:15 Gestatio n period, 28 weeks 43193808 Completed 202009/08/2020 28 weeks gestatio n of pregnanc y; Progress : Stable Added By: Mirtha Wills Add to Current Problems : NO ProblemS tatus: Resolve Annie Johnston kaylan, [employer] - [facility] IV [address] 10:02:[address] Concept Completed 202009/08/2020 Supervis ion of other high risk pregnanc ies, third trimeste r; Progress : Stable Added By: Genet Enrique Add to Current Problems : NO ProblemS tatus: Resolve Not Available [facility] 2 08:27:55 finding Completed 202009/08/2020 Maternal care for other known or suspecte d poor growth, third trimeste r, fetus 1; Progress : Stable Added By: Stephanie Martins Add to Current Problems : NO ProblemS tatus: Resolve Not Available [facility] 2 08:27:46 Abnormal glucose toleranc e in mother complica ting pregnanc y, childbir th AND/OR puerperi 27130498 Completed 202009/08/2020 Abnormal glucose complica ting pregnanc y; Progress : Stable Added By: Aleja Goode Add to Current Problems : NO ProblemS tatus: Resolve Annie Johnston kaylan, [employer] [facility] 3 10:01:49 Gestatio n period, 36 weeks 54013027 Completed 202009/08/2020 36 weeks gestatio n of pregnanc y; Progress : Stable Added By: Alyssa Mckenzie Add to Current Problems : NO ProblemS tatus: Resolve Annie Johnston kaylan, [employer] [facility] 3 10:02:54 Problem Notes None recorded. Procedures Surgical History Date Name Laterality Status Provider Name and Address Organization Details Recorded Time 4 NST completed JONATHAN Arnold [address] [place], [address], [employer] [facility] IV 11/15/2023 14:06:13 3 Date of Last Pap Smear completed Annie Johnston [facility] 02/21/2023 09:55:31 3 Nexplanon Removal completed LARA NOTZKE, [address], [address], [facility] - [facility] IV 09/03/2022 22:40:49 2 Nexplanon Insertion completed LARA GARCIA [address], [address], [facility] - [facility] 03/05/2022 11:31:31 2 NST completed Zaida Nix, [address], [address], [facility] - [facility] 10/10/2021 22:10:46 2 NST completed SEVERINO PETERSON, [address], [address], [facility] - [facility] 10/06/2021 11:26:15 2 NST completed Luly Lim MD [address] [place] [address], [phone], [facility] - [facility] 09/27/2021 15:01:24 2 NST completed Luly Lim MD [address] [place] [address], [address], [facility] - [facility] 09/17/2021 14:23:17 2 NST completed Stephanie Martins MD [address] [place] [address], [address], [facility] - [facility] 09/11/2021 11:49:40 2 NST completed Stephanie Martins MD [address] [place] [address], [address], [facility] - [facility] 09/13/2021 11:02:43 C Section completed Nichol Noble [place] - [facility] 02/05/2024 11:57:19 Imaging Results None recorded. Procedure Notes None recorded. Medical Equipment None Reported. Allergies No known drug allergies Medications Name Sig Start Date Stop Date Status Note LastModified by Organization Details LastModified Time valacyclo vir 1 gram tablet TAKE 1 TABLET BY MOUTH THREE TIMES A DAY FOR 7 DAYS 12/12 completed Not Available Not Available Not Available promethaz ine 25 mg rectal supposito ry insert 1 supposit ory (25 mg) by rectal route every 6 hours as needed for nausea/v omiting 11/09 completed Not Available Not Available Not Available meloxicam 15 mg tablet TAKE 1 TABLET (15 MG TOTAL) BY MOUTH DAILY. 01/30 completed Not Available Not Available Not Available fluoxetin e 10 mg tablet Take 1 tablet every day by oral route for 30 days. 01/30 completed Not Available Not Available Not Available metronida zole 500 mg tablet TAKE 1 TABLET BY MOUTH TWICE A DAY 01/30 completed Not Available Not Available Not Available aspirin 81 mg tablet,de layed release TAKE 1 TABLET BY MOUTH EVERY DAY active Not Available Not Available No t Available bupropion HCl SR 100 mg tablet,12 hr sustained -release Take 1 tablet twice a day by oral route. 07/27 completed Not Available Not Available Not Available butalbita l-acetami nophen-ca ffeine 50 mg-325 mg-40 mg tablet Take 1 tablet every 6 hours by oral route as needed, for migraine . 12/31 completed Not Available Not Available Not Available ondansetr on 8 mg disintegr ating tablet Place 1 tablet every 8 hours by translin gual route. 08/30 completed Not Available Not Available Not Available oxycodone -acetamin ophen 5 mg-325 mg tablet TAKE 1 TABLET BY MOUTH EVERY 6 HOURS 12/12 completed Not Available Not Available Not Available docusate sodium 100 mg capsule TAKE ONE CAPSULE BY MOUTH TWICE DAILY 12/31 completed Not Available Not Available Not Available sertralin e 25 mg tablet TAKE 1 TABLET BY MOUTH EVERY DAY 12/31 completed Not Available Not Available Not Available estradiol 2 mg tablet TAKE 1 TABLET BY MOUTH EVERY DAY 01/30 completed Not Available Not Available Not Available ibuprofen 600 mg tablet TAKE 1 TABLET BY MOUTH EVERY 6 HOURS NEEDED 07/27 completed Not Available Not Available Not Available oxycodone -acetamin ophen 7.5 mg-325 mg tablet 12/31 completed Not Available Not Available Not Available ondansetr on 4 mg disintegr ating tablet place 1 tablet (4 mg) on top of the tongue where it will dissolve ,then swallow by translin gual route, every 4hrs PRN nausea/v omiting 11/09 completed Not Available Not Available Not Available doxycycli ne hyclate 100 mg tablet TAKE 1 TABLET BY MOUTH TWICE A DAY FOR 7 DAYS 04/17 completed Not Available Not Available Not Available hydroxyzi ne pamoate 25 mg capsule TAKE 1 CAPSULE EVERY 6-8 HOURS BY ORAL ROUTE NEEDED. 12/31 completed Not Available Not Available Not Available Bactrim DS 800 mg-160 mg tablet take 1 tablet by oral route every 12 hours for 5 days 11/09 completed Not Available Not Available Not Available Vitamin 27 mg iron-0.8 mg tablet Take 1 tablet every day by oral route. 2024 active Not Available Not Available Not Avai lable azithromy travis 500 mg tablet TAKE 2 TABLETS BY ORAL ROUTE NOW- TAKE WITH FOOD 04/23 completed Not Available Not Available Not Available oxycodone 09/21 completed oxyCODON E RxNorm: [id number] Allow Substitu tion: False Refill Denied: No Refill DateOccu rred: 09/17/19 Edited by: Jennifer Doyle ) on 09/22/19 21 Stopped by: Jennifer Doyle ) on 09/22/19 21 Not Available Not Available Not Available iron 09/21 completed iron RxNorm: [id number] Allow Substitu tion: False Refill Denied: No Refill DateOccu rred: 09/17/19 21 Edited by: Jennifer Doyle ) on 09/22/19 21 Stopped by: karly(Jennifer Laguna ) on 09/22/19 21 Not Available Not Available Not Available ibuprofen 11/09 completed ibuprofe n RxNorm: [id number] Allow Substitu tion: False Refill Denied: No Refill DateOccu rred: 09/22/19 21 Edited by: Clementina Ariza ) on 11/10/19 21 Stopped by: shirley (Clementina Crenshaw ) on 11/10/19 21 Not Available Not Available Not Available Stool Softener 09/21 completed Stool Softener Allow Substitu tion: False Refill Denied: No Refill DateOccu rred: 09/17/19 Edited by: karly(Jennifer Laguna ) on 09/22/19 Stopped by: karly(Jennifer Laguna ) on 09/22/19 21 Not Available Not Available Not Available 07/27 completed Not Available Not Available Not Available FeroSul 325 mg (65 mg iron) tablet TAKE 1 TABLET BY MOUTH DAILY 06/19 completed Not Available Not Available Not Available RhoGAM Ultra-Adolfo tered PLUS 1,500 unit (300 mcg) intramusc ular syringe Inject 300 microgra ms by intramus cular route as directed for 1 day. 10/13 completed Not Available Not Available Not Available tranexami c acid 650 mg tablet Take 1 tablet 3 times a day by oral route as needed. 01/30 completed Not Available Not Available Not Available 85-iron 40 mg,10 mg-folic ac 1 mg-dha 300 mg-fish oil capsule Take 1 capsule every day by oral route. 01/30 completed Not Available Not Available Not Available Nexplanon 68 mg subdermal implant Inject 1 implant by subcutan eous route. 01/30 completed Not Available Not Available Not Available DHA 200 mg capsule Take one tablet daily. 09/21 completed Not Available Not Available Not Available Evelina 0.25 mg-0.035 mg tablet PLEASE SEE ATTACHED FOR DETAILED DIRECTIO NS 04/23 completed Not Available Not Available Not Available Incassia 0.35 mg tablet TAKE 1 TABLET BY MOUTH EVERY DAY 07/27 completed Not Available Not Available Not Available Zurzuvae 25 mg capsule Take 2 capsules every day by oral route for 14 days. 02/04 completed Not Available Not Available Not Available Vitals Date Recorded Body height Body mass index (BMI) Body weight Body temperature Systolic And Diastolic Provider Name and Address Organization Details Last Updated DateTime 07/27/2024 149.86 cm 29.5 kg/m2 12074.2 g 97.5 [degF] 108/68 mm[Hg] [facility] 5 11:30:22 Date Recorded Body height Body mass index (BMI) Body weight Body temperature Systolic And Diastolic Provider Name and Address Organization Details Last Updated DateTime 08/10/2024 149.86 cm 31.8 kg/m2 47775.7 2 g 97.9 [degF] 98/56 mm[Hg] Nichol AmayaCount includes the [facility] [employer] [facility] IV 12:59:05 Date Recorded Body height Body mass index (BMI) Body weight Systolic And Diastolic Provider Name and Address Organization Details Last Updated DateTime 08/27/2024 149.86 cm 31.2 kg/m2 94671.38 g 100/60 mm[Hg] Kiana Schneider [place] [facility] 08/27/2024 12:23:14 Date Recorded Body weight Body mass index (BMI) Body height Systolic And Diastolic Provider Name and Address Organization Details Last Updated DateTime 08/31/2024 68592.535 824 g 31.3 kg/m2 149.86 cm 98/56 mm[Hg] Nichol [facility] [employer] [facility] 08/31/2024 16:15:43 Date Recorded Body height Body mass index (BMI) Body weight Body temperature Systolic And Diastolic Provider Name and Address Organization Details Last Updated DateTime 02/05/2024 149.86 cm 29.3 kg/m2 61478.9 7 g 98.6 [degF] 112/72 mm[Hg] Nichol Noble [place] [facility] 11:54:55 Social History Question Answer Notes LastModified by Organizat ion Details LastModified Time Tobacco Smoking Status Never Smoker Sherrill Navarrofrantzalexandria kaylan [place] [facility] 03/20/2021 14:07:37 If You Are , What Was Your Level Of Alcohol Consumption Prior To ? None Information not available 08/31/2024 How Many Years Have You Consumed Alcohol? 5 Information not available 08/31/2024 Are You Blind Or Do You Have Difficulty Seeing? No Information not available 07/11/2021 Are You Deaf Or Do You Have Serious Difficulty Hearing? No Information not available 07/11/2021 What Type Of Diet Are You Following? REGULAR Information not available 03/20/2021 What Is The Highest Grade Or Level Of School You Have Completed Or The Highest Degree You Have Received? [id number] [email or web address] Information not available 04/17/2023 How Many Children Do You Have? 3 Information not available 02/05/2024 What Is Your Relationship Status? Single Boyfriend = Brandon Information not available 02/05/2024 Are You Sexually Active? Yes Information not available 03/20/2021 Sex: Female Functional Status Question Answer Note LastModified by Organizat ion Details LastModified Time Do you use any illicit or recreational drugs? No Information not available 07/11/2021 Do you or have you ever used any other forms of tobacco or nicotine? No Information not available 04/23/2023 What is your level of alcohol consumption? Occasional Information not available 08/31/2024 Are you currently employed? 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 Former user of electronic cigarettes Information not available 03/20/2021 What is your exercise level? Moderate Information not available 03/20/2021 Mental Status None recorded. Family History Relationship Description Onset Age of this Age Resolved Age Notes LastModified by Organization Details LastModified Time Father Hypertensive disorder [email or web address] Not available 2020 14:07:37 Mother Hypertensive disorder [email or web address] Not available 2020 14:07:37 Maternal Grandfather Malignant neoplastic disease [email or web address] Not available 2020 14:07:37 Maternal Grandfather Myocardial infarction [email or web address] Not available 03/20 14:07:37 Maternal Grandfather Cerebrovascu lar accident [email or web address] Not available 14:07:37 Maternal Grandfather Diabetes mellitus [email or web address] Not available 2020 14:07:37 Unspecified Relation Malignant neoplasm of lung [email or web address] Not available 2020 14:07:37 Sister Hypertensive disorder Blood disord er, MS, and blindn ess on dad's side of family . [email or web address] Not available 02/05/2024 17:24:26 Notes:no lupus in family(gra ndpa and uncle both had some dz?) Medical History Condition Response Other Cancer N High Blood Pressure N Colon Cancer N Cytomegalovirus N Hyperthyroidism N Breast Cancer N Herpes (HSV) N MRSA N Blood Transfusion N Lung Cancer N Hypothyroidism N Depression Y Incontinence N Panic Attacks N Neurological Disorder N Deep Vein Thrombosis N Anxiety Disorder Y Autoimmune disease N Arthritis Y Tuberculosis/Positive PPD N Shingles Y Polycystic Ovarian Syndrome N Cervical Cancer N Hematuria N Chlamydia N Varicosities N Stroke N Crohn's Disease N Seasonal allergies N Alzheimer's/Dementia N COPD/Emphysema N HPV/Genital Warts N Endometriosis N IBS (Irritable Bowel Syndrome) N History of Abnormal Pap N High Cholesterol N Liver Disease N Fibromyalgia N Kidney Infection N Ulcer N Kidney Disease N HIV N Gallbladder disease N Von Willebrand disease N Sickle Cell Disease/Trait N ADD/ADHD N Eating Disorder N Diabetes Mellitus (non-insulin dependent ) N Anemia Y Ovarian Problems N Multiple Sclerosis N Gonorrhea N Frequent Urinary Tract infections N Osteopenia N Headaches/migraines Y GERD (reflux) N Ovarian Cancer N Diabetes (insulin dependent) N Seizures/Epilepsy N Fibroids N Asthma Y Heart Attack N Endometrial Cancer N Lupus N Rubella N Blood Clotting Disorder N Bipolar Disorder N Diabetes Mellitus (during ) N Ulcerative Colitis N Hepatitis N Heart Disease N Pulmonary Embolism N RPR N Chicken Pox N Osteoporosis N Gynecological History Statement/Question Response Flow Moderate Date of last HPV 02/21/2023 Date of LMP 06/19/2024 HPV Vaccine N Duration of Flow (days) 5 Most Recent Mammogram Current Control Method Age at Menarche 11 Most Recent Bone Density Frequency of Cycle (Q days) Not sure Date of Last Pap Smear 02/21/2023 Obstetrics History GPAL:G 5 P 3 0 1 3 Type Value Multiple Births 0 Full Term 3 Induced 1 Premature 0 Living 3 Ectopics 0 Total 5 Past Encounters Encounter ID Performer Location Encounter Start Date Encounter Closed Date Diagnosis/Indication Diagnosis SNOMED-CT Code Diagnosis ICD10 Code Diagnosis Note [id number] SEVERINOKRIS PETERSON CNM [facility] [address] [place] [address] 03/20/2021 13:52:47 03/20/2021 15:18:07 test positive 682630973 Z32.01 Routine an tenatal care 788147867 Z34.01 Z34.81 O09.511 O09.895 [id number] SEVERINO PETERSON [facility] [address] [place] [address] 04/13/2021 14:50:25 04/13/2021 15:15:05 [id number] SEVERINO PETERSON [facility] [address] [place] [address] 05/16/2021 13:43:22 05/16/2021 14:33:31 Routine care 115011363 Z34.81 Gestation period, 15 weeks 7314685 Z3A.15 Normal pre gnancy in multigravida 3571614260 80415 Z34.82 [id number] URSULA ALEJANDRO, [facility] [address] [place] [address] 06/19/2021 09:59:26 06/19/2021 11:23:47 Routine care 738784077 Z34.92 Anatomy Incomplete today, needs heart views. PA sent, will schedule next visit. 75163275 Z33.1 IUP @ 20+ wks. US: INCOMPLETE , placenta WNL normal anatomy, active F/M. No OB complaints . RTO 4 wks with US. [id number] JONATHAN Morales [facility] [address] [place] [address] 07/12/2021 11:59:21 07/12/2021 16:16:02 Gestation period, 23 weeks 08259377 Z3A.23 screening for malformation 519796362 Z36.3 Anatomy scan complete Nausea, vo miting and diarrhea 5977525 R11.2 Increase hydration. Start with liquid diet and crackers before going to regular diet. Knows to go to L&D if unable to stay hydrated. [id number] Lanny Benítez, [facility] [address] [place] [address] 08/09/2021 09:45:45 08/09/2021 10:36:57 Routine care 721937793 Z34.82 Diabetes m ellitus screening 676712093 Z13.1 [id number] SEVERINO UMAÑA KRISTEN, [facility] [address] [place] [address] 08/22/2021 15:46:45 08/23/2021 11:29:46 Past history of growth restriction 206772144 Z87.59 Routine an tenatal care 433374553 Z34.83 Gestation period, 29 weeks 81609473 Z3A.29 Normal pre gnancy in multigravida 8790419546 37226 Z34.82 [id number] SUMMER ANAYA MD [address] [place] [address] 08/30/2021 12:13:37 08/31/2021 10:00:27 Gestation period, 30 weeks 89471906 Z3A.30 Supervisio n of high risk for multigravida done 1647149199 9109 O09.93 Blood grou p O Rh(D) negative 430150393 Z67.41 Past pregn joann history of section 198708581 Z98.890 Medical ex amination for suspected condition 651908320 Z03.71 [id number] Stephanie Martins MD [address] [place] [address] 09/05/2021 12:22:44 09/05/2021 13:40:20 Routine care 320889776 Z34.83 Gestation period, 31 weeks 37589969 Z3A.31 Uterine si ze for dates discrepancy 384702587 O26.843 u/s for EFW/Zan [id number] Stephanie Martins MD [facility] [address] [place] [address] 09/07/2021 12:39:19 09/07/2021 15:04:19 Gestation period, 31 weeks 67845953 Z3A.31 Small for gestational age fetus 849518482 O36.5931 High risk 4720 0007 O09.987 [id number] Stephanie Martins MD [facility] [address] [facility] [place] [address] 09/11/2021 10:48:42 09/11/2021 13:23:57 High risk 30021373 O09.893 Small for gestational age fetus 084377256 O36.5931 Gestation period, 32 weeks 1327700 Z3A.32 [id number] Luly Lim MD [facility] [address] [facility] [place] [address] 09/14/2021 11:42:15 09/18/2021 15:25:36 growth restriction 04105031 O36.5999 pt did not stay for physician visit but had her testing done [id number] SUMMER ANAYA MD [facility] [address] [place] [address] 09/22/2021 10:25:03 09/22/2021 12:38:52 growth restriction 34873582 O36.5999 Gestation period, 33 weeks 36503696 Z3A.33 Supervisio n of high risk with history of previous section done 0736369187 9106 O09.699 [id number] Luly Lim MD [facility] [address] [facility] [place] [address] 09/26/2021 10:09:17 09/27/2021 15:14:17 growth restriction 96584959 O36.5999 High risk 4720 0007 O09.893 Gestation period, 34 weeks 58122317 Z3A.34 [id number] SUMMER ANAYA MD [facility] [address] [facility] [place] [address] 09/29/2021 15:51:50 10/03/2021 10:10:37 screening for growth retardation 074972350 Z36.4 GROWTH, BPP & ZAN grow th restriction 69495799 O36.5999 Betamethas one x 2 doses ordered today [id number] Danilo Reynoso MD [facility] [address] [place] [address] 10/03/2021 12:59:27 10/03/2021 15:51:40 Routine care 589696864 Z34.83 grow th restriction 51429611 O36.5999 [id number] SEVERINO SHANEELL, [address] [address] 10/06/2021 09:52:49 10/06/2021 11:36:49 Normal in multigravida 6045573929 13624 Z34.82 grow th restriction 66623513 O36.5999 BPP, doppler, growth [id number] Zaida Nix, [address] [place] [address] 10/10/2021 09:48:37 10/10/2021 12:35:41 Supervision of high risk for multigravida done 1224084437 9109 O09.93 Gestation period, 36 weeks 60581472 Z3A.36 Labor precaution s given. FM counts discussed. F/u in L&D if experienci ng decreased movement, SROM, or regular uterine contractio ns increasing in frequency and/or intensity. grow th restriction 88198532 O36.5999 [id number] SUMMER ANAYA MD [address] [address] 10/13/2021 12:04:27 10/13/2021 14:35:43 Vaginal swab taken 491734411 Z75.2 grow th restriction 86130517 O36.5999 Supervisio n of high risk with history of previous section done 6907948449 9106 O09.771 [id number] SUMMER ANAYA MD [address] [address] 10/24/2021 15:51:35 2022 14:49:43 state 04576192 Z39.2 Postoperative visit 1836 52596 Z09 Contracept ion care management 964245928 Z30.9 POP sample provided, instructed on use. Desires Nexplanon, PA requested. [id number] SUMMER ANAYA MD [address] [address] 12/12/2021 11:23:14 12/12/2021 15:03:28 state 24391510 Z39.2 Transitory mood disturbance 65248052 O90.6 EPDS 14 Contracept ion care management 662505646 Z30.9 [id number] LARA GARCIA, [address] [address] 03/05/2022 10:48:36 03/05/2022 11:42:13 Implantation of subcutaneous contraceptive 694065976 Z30.9 [id number] Danilo Reynoso MD [address] [address] 08/22/2022 14:46:33 09/03/2022 10:32:11 Disorder of menstruation 070794818 N92.6 Discussed causes of abnormal uterine bleeding, including structural (polyps, fibroids), hormonal including anovulatio n, hyperplasi a, and rarely cancer. Reviewed evaluation with pelvic US and endometria l biopsy. Briefly discussed options available for treatment depending on the results of evaluation including hormonal options (OCPs, progestins , Mirena), endometria l ablation, and other surgery.di scussed atrophic bleeding and we can have her try estradiol 1 -2 mg bid x 5 days prn for bleeding more than 5 days and she may take 1 po qd last 7 days of her control pills as well and vilma third option is to take 1mg daily while on the control pill and we could even try placing her on estrostep Constipation 02495707 K5 9.00 TESTS/PROC EDURES: will get BMP as well as reflex tsh and magnesium level COUNSELING was provided today regarding the following topics: healthy eating habits. Patient education given on weight management . , regular exercise. Patient handout given on Fitness , discussed certain complicati ons that can occur with chronic constipati on such as urinary stress incontinen ce,prolaps e,and diverticul osis which could lead to diverticul itis and colostomy , and Genetic Counseling . RECOMMENDA TIONS given include: increase fluid intake . discussed constipati on FOLLOW-UP: Advised to call if there is no improvemen t. Schedule follow-up appointmen ts on a p.r.n. basis. if you have tried all of the meds which include bulking agents and laxatives including smooth move tea and have not had any luck we can try linzess and you may need to take 1 tab daily or every other day or 1/2 the capsule every 3rd day you just need to find what works for your body and continue taking that dose so you have a soft bowel movement every day to every other day . [id number] LARA GARCIA, [facility] [address] [place] [address] 09/03/2022 16:32:56 09/04/2022 09:09:19 Contraception care 812625376 Z30.40 Removal of subcutaneous contraceptive 813928348 Z30.46 [id number] DORA EDGE, [facility] [address] [place] [address] 01/30/2023 12:04:04 01/30/2023 16:07:39 Abnormal uterine bleeding 2637412742 9100 N93.9 Pt comes in with AUB. Started Saturday heavier bleeding. Sunday 01/28 was passing clots size of quarter and changing a super max tampon every 20-30 minutes. Went to ER last night 01/29- Labs WNL, HCG negative. --Discusse d the various causes of abnormal uterine bleeding. Including: polyps, fibroids, hyperplasi a, atypia, anovulatio n, etc.--Revi ewed the typical evaluation with labs and TVUS.--Dis cussed the possibilit y of endometria l biopsy. Biopsy procedure reviewed in detail.--R ecommended NSAID to help with cramping/b leeding.-- Briefly discussed the options available for treatment (depending on the results of evaluation ) such as hormonal treatment (OCPs, progestins ), Mirena, endometria l ablation, and surgery. Contracept ion: None- NExplanon removed 09/2022Fir st time this has happened. Normally has regular cycles with moderate flow. POCRTC- TVUS? PA- Pill Taper: monophasic GABO with 30-35 mcg of EstrogenTa ke one tablet TID x 3 days or until bleeding subsides,t hen one tablet BID x 3-5 days,then one tablet daily until all active pills have been taken. [id number] RUFINA NGO [facility] [address] [place] [address] 02/07/2023 15:25:22 02/08/2023 10:10:17 Abnormal uterine bleeding 7404801563 9100 N93.9 -TVUS today WNL: reviewed with patient.-B leeding stopped with Sprintec. Did have 1 episode of light pink spotting on Saturday. Concerned about potential for implatatio n bleeding.- No contracept ion at this time. Has had unprotecte d intercours e on Saturday and Saturday.-Mikel colunga needs updated pap. Will RTC in 2 weeks for WWE, vaginal cx, and HCG level. Patient is agreeable to POC. [id number] RUFINA NGO [facility] [address] [place] [address] 02/21/2023 09:51:41 02/22/2023 11:33:26 Gynecologic examination 99122787 Z01.419 Patient is an establishe d patient who presents for a gynecologi jose Annual Exam. Medical, family and social history reviewed. The patient denies any changes. Adequate changes were made. 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 Menses lasts for 3 or 4 days. Reports they are not heavy or painful. Denies spotting in between.Pt is currently using for contracept ion. She is satisfied with her current method, refills sent. Pap History: 02/2020 NILMShe is due for papCollect ed Today Breast History:Sh e denies breast symptoms. Education on Breast Self Awareness given.Brenna ent is under 40-mammogr am not indicated Family History:Ne gative for Breast Cancer, Cervical Cancer, Colon Cancer, Endometria l Cancer and Ovarian Cancer.MYR isk test offered and declined.E valuates 48 genes associated with 11 different hereditary cancers.Pr ovides answers for likelihood to develop cancer over the next 5 years and their lifetime Helps guide care and screening for said cancers. Social History:Sh alexandria is currently sexually active. She denies complaints about sexual activity. Patient reports feeling safe at home from emotional, physical, and verbal abuse.She does desire STD testing. Exercise: Occasional She wears her seat belt. She does not text and drive.The patient denies smoking and recreation al drugs. She denies drinking alcohol. Patient is regularly seen by PCP for preventati ve care: No, referral sent today Screening for malignant neoplasm of cervix 801927229 Z12.4 ASCCP guidelines reviewed with pt. Pap collected and sent. Further POC pending lab result review. Pt states understand ing of POC. Screening for malignant neoplasm of breast 728800395 Z12.39 Pt educated on breast cancer screening guidelines . Denies any concerns with breast at this time. Denies any lumps, bumps, nipple discharge or unusual soreness. Pt states understand ing of POC. Venereal d isease screening 972141494 Z11.3 Discussed the various types of STDs, related symptoms and the potential consequenc es (including effects on fertility) of STD infections . Reviewed ways to limit exposure and prevention techniques . Missed period 98482957 N 92.5 Had irregular bleeding a couple of weeks ago, has not had bleeding since.Brenna ent states last time that happened she ended up and would like to check today. [id number] RUFINA NGO [facility] [address] [place] [address] 04/17/2023 10:24:06 04/17/2023 14:35:19 Chlamydial infection 010939566 A74.9 23 y.o. here for test of cure for recent CT.- No new partners, took med, sx resolved- Reviewed safe sex [id number] Zaida Nix CNM [facility] h [address] [place] [address] 04/23/2023 15:48:47 04/24/2023 13:03:50 detection examination 18973724 Z32.00 Possible GS see; approximat ruchi 4 weeks. LMP 03/24. F/u 2 wks for viability scan. Discussed w/pt [id number] Danilo Reynoso MD [address] [address] 05/08/2023 12:09:20 05/08/2023 17:12:11 Uncertain viability of 559912078 O36.80X9 she had IUGR w/both and was 36 weeks and ind and had IUGR and absent flow and asa 81mg qd at 10 weeks and we will have her back in 2 weeks for new ob and labs and unity test and 6w3d by lmp and 6w 1 d by US and fhts 562 [id number] JENNIFER Easley[address] [address] 05/23/2023 12:25:50 05/28/2023 13:17:48 Routine care 064369890 Z34.01 Z34.81 O09.511 O09.521 Gestation period, 8 weeks 42242435 Z3A.08 [id number] JENNIFER Easley[address] [address] 06/03/2023 14:48:21 06/03/2023 17:40:55 screening 445885298 Z36.0 Carrier de tection, molecular genetics 0888481 Z14.8 Gestation period, 10 weeks 30179612 Z3A.10 [id number] JENNIFER Easley[address] [address] 06/26/2023 14:02:51 06/26/2023 16:08:13 Gestation period, 13 weeks 95085096 Z3A.13 Routine an tenatal care 670188761 Z34.01 Z34.81 O09.511 O09.521 Mixed anxi ety and depressive disorder 916452186 F41.8 [id number] JONATHAN Arnold [facility] [address] [place] [address] 07/19/2023 11:14:11 07/19/2023 11:47:31 Routine care 280984222 Z34.82 screening 2437 18664 Z36.9 Left upper quadrant pain 430765414 R10.12 [id number] Jen [facility] [address] [place] [address] 07/24/2023 15:53:42 07/24/2023 17:20:16 Gestation period, 17 weeks 10792218 Z3A.17 Routine an tenatal care 577181893 Z34.92 [id number] Jen [facility] [address] [place] [address] 08/13/2023 09:26:19 08/13/2023 12:43:05 Routine care 337195168 Z34.92 Gestation period, 20 weeks 72392868 Z3A.20 screening for malformation 123868499 Z36.3 [id number] Danilo Reynoso MD [facility] [address] [place] [address] 09/13/2023 14:35:22 09/13/2023 15:22:42 Gestation period, 24 weeks 057967641 Z3A.24 Additional diagnosis detail: 24 weeks gestation of Normal 2177208 2 Z34.82 Additional diagnosis detail: Encounter for supervisio n of other normal , second trimester [id number] JONATHAN Arnold [address] [address] 10/09/2023 11:14:46 10/09/2023 11:33:31 Normal 00883844 Z34.83 Additional diagnosis detail: Normal in multigravi da in third trimester screening 2437 07622 Z36.89 History of previous intrauterine growth restricted 5826359785 21463 Z87.59 Additional diagnosis detail: History of prior with IUGR [id number] JONATHAN Arnold [address] [address] 10/09/2023 09:42:51 10/09/2023 09:54:47 [id number] Luly Lim MD [address] [address] 10/14/2023 10:55:16 11/21/2023 14:10:22 Multigravida 446517663 Z34.83 Additional diagnosis detail: Multigravi da in third trimester Gestation period, 29 weeks 89774864 Z3A.29 Additional diagnosis detail: 29 weeks gestation of Past pregn joann history of section 064677040 Z98.891 prior c section times 2 and plans repeat. Discussed that generally the repeat c section is scheduled for 38 wks, but depending on her progress with this and presence of risk factors such as IUGR, an earler delivery may be indicated. Additional diagnosis detail: History of section, low transverse Migraine 64249092 G43.90 [address] [facility] [employer] [address].A dditional diagnosis detail: Migraine syndrome [id number] JONATHAN Morales [facility] [address] [place] [address] 11/01/2023 14:43:23 11/08/2023 17:52:23 Gestation period, 32 weeks 1774496 Z3A.32 US for growth today- h/o IUGR babiesAFI 18EFW 71%tile Additional diagnosis detail: 32 weeks gestation of s [place] of fetus 73412464 Z34.90 Additional diagnosis detail: care, antepartum Third trim thor 23462118 Z34.93 [id number] JONATHAN Arnold [address] [address] 11/15/2023 12:13:24 11/15/2023 13:33:54 Normal 54114135 Z34.83 Additional diagnosis detail: Normal in multigravi da in third trimester Gestation period, 33 weeks 45402706 Z3A.33 Additional diagnosis detail: 33 weeks gestation of Premature uterine contraction 134580038 O47.00 Additional diagnosis detail: contractio ns [id number] Stephanie Martins MD [facility] [address] [place] [address] 11/11/2023 14:45:07 11/11/2023 15:45:30 Gestation period, 33 weeks [id number] Z3A.33 Normal 0683791 2 Z34.83 Additional diagnosis detail: Encounter for supervisio n of other normal , third trimester [id number] JONATHAN Arnold [address] [address] 11/29/2023 12:09:53 11/29/2023 12:26:17 Normal [id number] Z34.83 Additional diagnosis detail: Encounter for supervisio n of other normal , third trimester Gestation period, 35 weeks 74607844 Z3A.35 Additional diagnosis detail: 35 weeks gestation of [id number] JONATHAN Arnold [place] [address] [place] [address] 11/22/2023 11:36:59 11/22/2023 12:14:02 Normal 06681446 Z34.83 Additional diagnosis detail: Encounter for supervisio n of other normal , third trimester Gestation period, 34 weeks 09269836 Z3A.34 Additional diagnosis detail: 34 weeks gestation of False labo r before 37 completed weeks of gestation [id number] 9600175 O47.00 Additional diagnosis detail: Threatened labor, antepartum [id number] Danilo Reynoso MD [address] [address] 12/06/2023 16:40:08 12/09/2023 10:50:15 Normal 31616993 Z34.83 Additional diagnosis detail: Normal in multigravi da in third trimester Gestation period, 36 weeks 17611932 Z3A.36 Additional diagnosis detail: 36 weeks gestation of History of previous intrauterine growth restricted [id number] 50602 Z87.59 Additional diagnosis detail: History of prior with intrauteri ne growth restricted screening 2437 70206 Z36.9 Additional diagnosis detail: screening encounter [id number] RUBIO SEO DO [facility] [address] [place] [address] 12/12/2023 13:54:36 12/12/2023 15:14:14 Normal 53332439 Z34.83 Additional diagnosis detail: Normal in multigravi da in third trimester History of previous intrauterine growth restricted [id number] 39072 Z87.59 Additional diagnosis detail: History of prior with intrauteri ne growth restricted Gestation period, 37 weeks 71334942 Z3A.37 Additional diagnosis detail: 37 weeks gestation of Migraine w ithout aura, not refractory 196976396 G43.009 Additional diagnosis detail: Migraine without aura and without status migrainosu s, not intractabl e [id number] Danilo Reynoso MD [facility] [address] [place] [address] 01/01/2024 11:44:10 2024 16:53:34 Postoperative visit [id number] Z09 Feeling well. No N/V or Fever. Pain is minimal. No abnormal bleeding Bowels moving well and voiding without difficulty and discussed activity restrictio ns dos and do nots for her type of procedure and she understand s ad will contact us if any issues. Recommende d to repeat SHAYE at 6 weeks postop. depression 58 877206 F53.0 Her EPDS score today is 18. Started her on Wellbutrin SR 100 mg tablet to be taken along with Zurzuvae 25 mg as directed. [id number] JONATHAN Morales [facility] [address] [place] [address] 01/17/2024 08:54:35 01/17/2024 13:26:52 Mixed anxiety and depressive disorder [id number] F41.8 Jamilah has been taking Wellbutrin 100 mg twice daily for the past 10 days and has observed some improvemen t in her symptoms. However, she continues to experience anxiety. We discussed maintainin g the current dosage for now, as it has only been 10 days, and the medication is still in the process of reaching its full effect. It was agreed that any potential dosage increase should be considered during her 6-week PP visit, which is 2.5 weeks away. I emphasized that for the medication to be properly evaluated for effectiven ess, it must reach a therapeuti c dose. We also reviewed that Wellbutrin is primarily effective in managing depressive symptoms, though with continued use, it may also help alleviate her anxiety. In addition, we explored other medication options that could be added to specifical ly target anxiety if needed, depending on her progress in the coming weeks. GADD-7 score: 13EPDS score: 12 depression 58 169273 F53.0 F41.9 Jamilah denies experienci ng active or passive suicidal ideation, as well as any thoughts or behaviors related to self-harm. We discussed the potential benefits of counseling , but she declined a referral at this time. I provided her with informhugoo n about the .net website, which offers access to closed Facebook groups and support groups for mothers and fathers dealing with mood and anxiety disorders. [id number] Danilo Reynoso MD [facility] [address] [place] [address] 02/05/2024 11:43:28 02/19/2024 16:19:40 state 15045420 Z39.2 discussed breast feeding and control and minipill and also any progestero ne type and will switch to combinatio n pill after breast feedingwil l see in 10-12 months for yearly or sooner if neededalso discussed timing of second and waiting 15 months before attempting to get for medical reasons which were discussed with the patientFol low-up in 1 year for routine check up, sooner if needed. Depression screening 171 516158 Z13.31 See Screening Section for EPDS Questionna mari Result Anti-nucle ar factor detected [id number] R76.8 Ordered blood work and referral was placed to rheumatolo ale for further evaluation and management . [id number] JONATHAN BROWNING [facility] [address] [place] [address] 07/27/2024 10:58:53 07/27/2024 15:46:31 test positive 011775815 Z32.01 - Routine care and monitoring plan discussed. - Start vitamins, prescripti on sent.- Plan baby aspirin by 12 weeks due to preeclamps ia family history. First trimester teaching provided.- --Foods and activities to avoid---We ight gain recommenda tions based on BMI---Safe meds---Santi entation to practice-- -Delivery locations- --JUDY visit progressio n---Prenat al vitamins daily---To xoplasmosi s precaution s reviewed-- -[facility] Guide; What to expect on your maternity journey-- -S/S of SAB reviewed and when to seek care Uncertain viability of 945166065 O36.80X0 TVUS today showed: fundal gestationa l sacno pole or FHT today LMP: 06/19/24, based on LMP patient is approx 5 weeks.Revi ewed ACOG guidelines for dx criteria for early loss. US today shows early vs non-viable . Will need to repeat US in 11+ days to confirm if viable . Uncertain viability does not mean the will definitely miscarry, it simply means more informatio n is needed through a follow-up scan. ---Recomme nd vitamins daily---S/ S of SAB reviewed and when to seek care Plan to check Quant HCG today and repeat on Saturday 07/29- further management based upon quant resultsRTC in 12-14 days for Viability Ultrasound Past pregn joann history of miscarriage 523062347 O09.299 - Reviewed mild cramping, encouraged monitoring ; no severe symptoms noted. - Reassuranc e offered regarding current stability. History of depression 16 2867703 Z86.59 O99.891 - Past depression managed with medication , patient now stable, alert for resurgence . [id number] JONATHAN BROWNING [facility] [address] [place] [address] 08/10/2024 12:08:10 08/10/2024 17:40:46 Uncertain viability of 018835174 O36.80X0 Left flank pain 18110023 9 R10.9 left flank pain x2 weeks. Denies dysuria, UA dip neg in office. Plan to send for urine culture. Discussed ER precaution s for worsening of symptoms. Intrauteri ne 58959572 Z34.90 First trimester teaching provided.- --Foods and activities to avoid---We ight gain recommenda tions based on BMI---Safe meds---Santi entation to practice-- -Delivery locations- --JUDY visit progressio n---Prenat al vitamins daily---To xoplasmosi s precaution s reviewed-- -[facility] Guide; What to expect on your maternity journey-- -S/S of SAB reviewed and when to seek care Patient was counseled on purpose, process and potential outcomes of NIPT and carrier screening. We discussed benefits, limitation s and accuracy of screenings . Alternativ es including, no testing, were reviewed. Patient was given the opportunit y to ask questions, which were addressed thoroughly . After confirming understand ing, patient provided verbal consent for NIPT and carrier screening. Plan for NIPT at next visit. --BMI: 31.8 RTC 3 weeks for 1st OB, Labs, and Physical. History of fall 23803926 9 Z91.81 fell down stairs yesterday did not hit abdomen TVUS Shows cardiac activity, normal uterus and ovaries no evidence of hemorrhage [id number] Zaida Nix CNM [facility] [address] [place] [address] 08/27/2024 12:07:54 08/27/2024 12:36:37 Gestation period, 9 weeks 394174 Z3A.09 Advised pt to f/u immediatel y if temp>101.; abdominal pain, vaginal bleeding greater than 1 pad/hr for greater than 2 hours; vaginal bleeding with or without cramping; bleeding w/clots; cramping like a period. Sharp pain 7676129 R52 Pt reports single episode of sharp pain in suprapubic area that radiated to the groin when she stood up from sitting on the floor. This happened yesterday. Does not report any pain at this time.State s that she feels something is detaching from her uterine scar.Denie s vaginal bleeding/c ramping.Pr ecautions discussed. Increase po hydration. F/u next routine appt [id number] JONATHAN BROWNING [facility] [address] [place] [address] 08/31/2024 15:49:16 09/01/2024 14:19:18 Gestation period, 10 weeks 83517998 Z3A.10 screening 2437 38777 Z36.89 High risk 4720 0007 O09.91 POC-- NOB labs done today-- Accepts NIPT-- PAP Up to Date-- Low dose aspirin recommende d-- Pre-Pregna ncy BMI: 31.8--EPDS score 8-- RTC 4 weeks Guide: Given and reviewed. Toxoplasmo sis precaution s reviewed. Reviewed office visit schedule during . Reviewed Quickening and normal FHTs. Seek care immediatel y for any of the following Vaginal bleeding or leaking of fluid--nelsy ght red bleeding and/or clots.Any temperatur e above 100.4 degrees.An y burning or painful urination. Increased swelling in your face, hands, or feet.Sever e stomach pains, cramps, nausea,or diarrhea. Finding of pattern of 242002618 O09.899 Last delivery 12/17/23 History of depression 16 4528480 O99.891 Z86.59 EPDS Score 8 - Past depression managed with medication , not one medication s now and declines wanting to start during . Patient now stable, alert for resurgence . Past pregn joann history of section 621266605 O34.219 CS x3- discussed with Dr Reynoso he recommends RLTCS with tubal at 38 weeks due to thinning of lower uterine segment noted during section- planning for transfer of care to [facility] for delivery at [place] pt recently moved in [place], [place]. [facility] risk of disease 070188883 Z91.89 Mother and sisters with history of pre-e, plan to start LDASA at 12 weeks. Rx sent Health Concerns Section Related Observation LastModified by Organization Detai ls LastModified Time None Recorded Concern Status LastModified by Organization Details LastModified Time None Recorded Advance Directives Directive None Recorded Payers Insurance Date Sequence Insurance Name Policy Number Policy Mason Covered Member ID Mason Member ID Guarantor Name 12/12/2021 2 [employer] [facility] [employer] () Jamilah Valenzuela [id number] Jamilah Valenzuela 09/19/2024 1 [employer] [place] - DOS ON OR AFTER 2020 (MEDICAID REPLACEMENT - HMO) Jamilah Valenzuela [id number] Jamilah Valenzuela 10/24/2021 1 [employer] () Jamilah Valenzuela [id number] Jamilah Valenzuela 10/24/2021 2 [place]MEDICAID) Jamilah Valenzuela [id number] Jamilah Valenzuela Notes Date Note Type Note Provider Name and Address Organization Details Recorded Time 02/05/2024 text/html VisitReported bypatient.Onset/Timing :date of delivery: (12-20-23) Quality:repeat C/S Context:feeding choice: breast; good support from partner/family; resumed menstrual bleeding yes Associated Symptoms:no abnormal bleeding; no vaginal discharge; no pelvic pain; laceration well healed; no constipation; no fecal incontinence; no dysuria; no urinary incontinence; no fever; no problems; no mastitis; normal mood The patient verbally consented to documentation via virtual scribe for this encounter. Jamilah is a 24-year-old female who presents today for visit. She underwent repeat on 12/20/[address] Danilo Reynoso. She reports currently. She denies any depression currently. She has a history of SHAYE positivity with . She denies any lupus or autoimmune diseases such as Sjogren disease or rheumatoid arthritis in the family; however, reports her grandfather and uncle were diagnosed with unknown disease and . Danilo Reynoso MD [address] [place] [address], [address], [facility] 02/15/2024 15:23:10 07/27/2024 text/html Confir mation VisitReported bypatient.obstetrics and gynecologyLMP: (06-19-24); date positive test: (07-27-24); 5; para 3; US IUP not confirmed - Jamilah is a 24-year-old female presenting with a confirmed positive test seeking guidance for early management. - The patient has a known history of a previous miscarriage, raising her apprehension towards the current progression, especially noting approximately five weeks gestation. - Previous surgical history includes three deliveries without major issues in growth or maternal health during those pregnancies. - The patient conveyed mild cramping, occasionally localized more to the right side, typically mild and resolving with Tylenol. No severe cramping or bleeding was mentioned at this time. - She is aware of familial preeclampsia and has been counselled about potential use of baby aspirin in the future to mitigate associated risks. - The patient had experience with depression, treated with medication, and now reports feeling stable regarding her depressive symptoms. - She has yet to start vitamins but expresses intention to adhere once prescriptions are available.OB History: [id number] Section x3- scar tissue issue after delivery states was told by Dr Reynoso that another pregnnacy may need to do verticle incision instead of low transverse History of PPD, Moms and sisters with Pre-e AYALA ANDERSON, JONATHAN [address] [place], [address], [facility] [employer] 07/27/2024 14:33:13 08/10/2024 text/html Confir mation VisitReported bypatient.obstetrics and gynecologyLMP: (06-19-24); date positive test: (07-27-24); 5; para 3 Pt presents today for a confirmation of visit. has not been previously confirmed at another healthcare facility. Pt voiced that she is happy about this . TVUS today showed:IUP with Cardiac Activity.LEROY consistent with LMP. LEROY: 03/26/25Gestational Age: 7w 3dFHT: 145 OB History: [id number] Section x3 AYALA ANDERSON [address] [place], [address], [facility] [employer] 08/10/2024 21:37:20 08/27/2024 text/html Jamilah is here for ob problem visitpatient 9.6 weekspateint c/o feels like something is detaching from her scarpatient c/o dull pulling pain Zaida Nix, [facility] [address] [place], [address], [facility] [employer] IV 08/27/2024 16:47:54 08/31/2024 text/html [facility] OB Return VisitReported bypatient. symptoms: movement normal; no movement (consistent with gestational age); normal vaginal discharge/no ROM; no bleeding; pelvic pressure; no contractions/mild cramping only Gastrointestinal:no gastrointestinal symptoms Cardiovascular:no cardiovascular symptoms Musculoskeletal:no joint pain Neurologic:no headache; no visual changes Breast:plans to breast feed Social/psychiatric issues:no reported concerns with support system; no anxiety; no symptoms of depression Pt comes in today for a New/First OB visit.Gestation: 10w 3dEDD: 03/26/2025 by LMP -- Previous OB History:[id number] on x3, short interval with last delivery 12/16/24History of PPD -- History of Genital HSV: denies -- PMH: Anxiety, Depression -- Medications: Taking daily PNV, not taking any other medications -- Mom/Sisters with hx of Pre-Eclampsia: yes --Pap History: 02/21/23 ASCUS, HPV neg pap due in 2025 per ASCCP guidelines -- Pre- BMI: 31.8 She denies any complaints of the presence of vaginal bleed, leaking fluid, abdominal cramps, nausea, vomiting, headache or visual disturbances. JONATHAN BROWNING [address] [place], [address], [facility] [employer] 08/31/2024 22:35:34 OBGyn Episode Ob Episode Information Episode Created Date Number of Fetuses Patient Bloodtype Patient rh Status Prepregnancy Weight lbs Domestic Partner Domestic Partner Phone Father Name Pigment Processor Status 03/20/20 21 1 O Negative CLOSED Fetus Data First Name Last Name Admitted to NICU Weight (g) Sex Living Outcome Pediatric Complications Fetus ID Race Codes Race Delivery Type false 2919.99 85 M true Full Term 12355 Repeat Problems Problem Notes steroids 5-27 and 5-28(had d ecreased fm= nst)Planning on RCS r/t short interval between , 13 mos and labor = 2-5% risk of lower uterine seg dehiscense=37 week delivery sec to iugr and elevated doplars and short int delivery time, 10-03- s/d ratio=2.57 and zan=9 Problem Name Start Date End Date Resolution Snomed Code Not e History of growth retardation [id number] 08/22: G row EFW 1356 gm/34.8%ile, Femur5 %ile, 5-27= 10% and bpp8/8 and s/.d =3.31 Past history of section 09/10/2020 [id number] emergency CS fa ce presentation - desires repeat CS for delivery Blood group O Rh(D) negative [id number] RhoGAM Leroy Calculation Initial Leroy Date Initial Exam Date Initial Exam Provider Initial Ultrasound Date Last Menstrual Period Date Ultra Sound Weeks Gestation 11/05/2021 03/20/2021 03/20/2021 01/29/2021 0 Eighteen To Twenty Week Leroy Update Ultra Sound Date Fundal Height At Umbil Quickening Date Ultra Sound Latest Weeks Gestation Final Leroy Confirmed By Final Leroy Confirmed Date Final Leroy Date Ultra Sound Latest Days Gestation 0 11/06/19 22 0 Pre- Flowsheet Flowsheet Date 03/20/2021 Moe Score Blood Edema Fundus Height Fundus Units Glucose Ketones Leukocytes Nitrite Labor Signs Protein Cervic Dilation Cervic Effacement Cervic Station none none none neg Type Weight in lbs Pre/Post Dialysis Refused Weight 147.029432133433 BP Diastolic BP Location Tested BP Systolic BP Type 80 R arm 128 standing Fetus Heart Rate Present A 136 Present Fetus Movement Comments Would like to wait for 20 an atomy scan to decide on genetic screening. first trimester anticipatory teaching. Medications in reviewed. Warning signs of SAB reviewed. F/U in four weeks. PNL pending today Flowsheet Date 04/13/2021 Moe Score Blood Edema Fundus Height Fundus Units Glucose Ketones Leukocytes Nitrite Labor Signs Protein Cervic Dilation Cervic Effacement Cervic Station none neg Type Weight in lbs Pre/Post Dialysis Refused Weight 143.631295912990 BP Diastolic BP Location Tested BP Systolic BP Type 68 110 Fetus Heart Rate Present Fetus Movement Comments Warning signs of SAB reviewe d. F/U in four weeks. Sneakpeek planned today RTC 5 weeks Flowsheet Date 05/16/2021 Moe Score Blood Edema Fundus Height Fundus Units Glucose Ketones Leukocytes Nitrite Labor Signs Protein Cervic Dilation Cervic Effacement Cervic Station none Type Weight in lbs Pre/Post Dialysis Refused Weight 140.457691372811 BP Diastolic BP Location Tested BP Systolic BP Type 68 L arm 118 sitting Fetus Heart Rate Present A 143 Present Fetus Movement A Yes Comments Warning signs of SAB reviewe d. F/U in four weeks. Sneakpalliek Boy per pt. RTC 20 weeks for JUDY with anatomy Flowsheet Date 06/19/2021 Moe Score Blood Edema Fundus Height Fundus Units Glucose Ketones Leukocytes Nitrite Labor Signs Protein Cervic Dilation Cervic Effacement Cervic Station none 20 wks none none neg Type Weight in lbs Pre/Post Dialysis Refused Weight 146.623854371582 BP Diastolic BP Location Tested BP Systolic BP Type 64 110 Fetus Heart Rate Present A 160 Present Fetus Movement A Yes Comments No OB concerns today, Anatom y INCOMPLETE, needs heart views. sending PAROB and US next visit. Flowsheet Date 07/12/2021 Moe Score Blood Edema Fundus Height Fundus Units Glucose Ketones Leukocytes Nitrite Labor Signs Protein Cervic Dilation Cervic Effacement Cervic Station none none Type Weight in lbs Pre/Post Dialysis Refused With clothes 143.121845745000 BP Diastolic BP Location Tested BP Systolic BP Type 62 L arm 112 sitting Fetus Heart Rate Present A 146 Fetus Movement A Yes Comments Anatomy scan completec/o N/V and some diarrhea. Can't keep food down- instructed to increase hydration and go to L&D for fluids if unable to stay hydrated. She is aware. Rx for Zofran sent. Flowsheet Date 08/09/2021 Moe Score Blood Edema Fundus Height Fundus Units Glucose Ketones Leukocytes Nitrite Labor Signs Protein Cervic Dilation Cervic Effacement Cervic Station none 27 none none neg Type Weight in lbs Pre/Post Dialysis Refused Weight 149.165714842423 BP Diastolic BP Location Tested BP Systolic BP Type 70 110 Fetus Heart Rate Present A 148 Fetus Movement A Yes Comments 22: 1hr glucose labs tokrupa ay, prior history of IUGR last will start serial growth US next visit, PA sent. Flowsheet Date 08/22/2021 Moe Score Blood Edema Fundus Height Fundus Units Glucose Ketones Leukocytes Nitrite Labor Signs Protein Cervic Dilation Cervic Effacement Cervic Station none none Type Weight in lbs Pre/Post Dialysis Refused Weight 152.544649054883 BP Diastolic BP Location Tested BP Systolic BP Type 74 L arm 122 sitting Fetus Heart Rate Present A 130 Present Fetus Movement A Yes Comments 34% EFW. Patient would like to see Delma and Eliezer to determine if she would like to attempt CS scheduling with either of these providers. PTL and preeclampsia precautions reviewed. FKC reviewed and when to seek care Flowsheet Date 08/30/2021 Moe Score Blood Edema Fundus Height Fundus Units Glucose Ketones Leukocytes Nitrite Labor Signs Protein Cervic Dilation Cervic Effacement Cervic Station 30 wks none Other (see comments ) neg 0cm 0% Type Weight in lbs Pre/Post Dialysis Refused Weight 155.29688565248 BP Diastolic BP Location Tested BP Systolic BP Type 72 122 Fetus Heart Rate Present A 130 Present Fetus Movement A Yes Comments c/o ? LOF: ROM ruled out. No t in labor. Continue growth scans, FL 5%ilePTL/ PIH precautions reviewed. 28 week labs wnl. Continue ue PNV with Fe Flowsheet Date 09/05/2021 Moe Score Blood Edema Fundus Height Fundus Units Glucose Ketones Leukocytes Nitrite Labor Signs Protein Cervic Dilation Cervic Effacement Cervic Station none none none neg Type Weight in lbs Pre/Post Dialysis Refused Weight 152.931132747331 BP Diastolic BP Location Tested BP Systolic BP Type 74 112 Fetus Heart Rate Present A 141 Fetus Movement A Yes Comments EFW 20%ile; FL 2.4%ile; ZAN normal. Due to declining growth on u/s and history of IUGR, Recommend twice weekly NST/once weekly ZAN/Q3-4 week growth u/s. Flowsheet Date 09/07/2021 Moe Score Blood Edema Fundus Height Fundus Units Glucose Ketones Leukocytes Nitrite Labor Signs Protein Cervic Dilation Cervic Effacement Cervic Station none none trace Type Weight in lbs Pre/Post Dialysis Refused With clothes 154.403496778393 BP Diastolic BP Location Tested BP Systolic BP Type 70 L arm 104 sitting Fetus Heart Rate Present A 145 Fetus Movement A Yes Comments NST reassuring but not react demetris. BPP 8/8 Flowsheet Date 09/11/2021 Moe Score Blood Edema Fundus Height Fundus Units Glucose Ketones Leukocytes Nitrite Labor Signs Protein Cervic Dilation Cervic Effacement Cervic Station none neg Type Weight in lbs Pre/Post Dialysis Refused With clothes 155.70087990888 BP Diastolic BP Location Tested BP Systolic BP Type 68 L arm 116 sitting Fetus Heart Rate Present A 140 Fetus Movement A Yes Comments ZAN 15. NST reactive Flowsheet Date 09/14/2021 Moe Score Blood Edema Fundus Height Fundus Units Glucose Ketones Leukocytes Nitrite Labor Signs Protein Cervic Dilation Cervic Effacement Cervic Station Type Weight in lbs Pre/Post Dialysis Refused Weight 156.835817013256 BP Diastolic BP Location Tested BP Systolic BP Type 68 114 Fetus Heart Rate Present Fetus Movement Comments pt had NST but did not stay for physician visit Flowsheet Date 09/22/2021 Moe Score Blood Edema Fundus Height Fundus Units Glucose Ketones Leukocytes Nitrite Labor Signs Protein Cervic Dilation Cervic Effacement Cervic Station 32 wks none none neg Type Weight in lbs Pre/Post Dialysis Refused Weight 154.288675331016 BP Diastolic BP Location Tested BP Systolic BP Type 68 106 Fetus Heart Rate Present A 141 Present Fetus Movement A Yes Comments NST categ 1, adequate ZAN 10 .28Growth next week. Continue surveillance with biweekly NST and weekly BPP. Flowsheet Date 09/26/2021 Moe Score Blood Edema Fundus Height Fundus Units Glucose Ketones Leukocytes Nitrite Labor Signs Protein Cervic Dilation Cervic Effacement Cervic Station none none none neg Type Weight in lbs Pre/Post Dialysis Refused Weight 154.830630223424 BP Diastolic BP Location Tested BP Systolic BP Type 82 120 Fetus Heart Rate Present A 130 Present Fetus Movement A Yes Comments 34 wks: Being followed for I UGR. EFW growth 10%, femur length 0.2%. AC 27%. ZAN 12.4. Continue biweekly NST and weekly BPP/add Dopplers. Discussed IUGR and reviewed plan of care with pt, including timing of delivery Flowsheet Date 09/29/2021 Moe Score Blood Edema Fundus Height Fundus Units Glucose Ketones Leukocytes Nitrite Labor Signs Protein Cervic Dilation Cervic Effacement Cervic Station none neg Type Weight in lbs Pre/Post Dialysis Refused Weight 156.237453449456 BP Diastolic BP Location Tested BP Systolic BP Type 70 122 Fetus Heart Rate Present Fetus Movement Comments zan=13 and S/D ratio = 3.31 and BPP =8/8 Flowsheet Date 10/03/2021 Moe Score Blood Edema Fundus Height Fundus Units Glucose Ketones Leukocytes Nitrite Labor Signs Protein Cervic Dilation Cervic Effacement Cervic Station none neg Type Weight in lbs Pre/Post Dialysis Refused With clothes 155.806503258267 BP Diastolic BP Location Tested BP Systolic BP Type 82 L arm 120 sitting Fetus Heart Rate Present A 150 Fetus Movement Comments doing well and we will do 37 week delivery instead of 39 sec to iugr and close interdelivery , zan=9 and s/d ratio=2.57 and looked at 20 week scan and fl was at 38% Flowsheet Date 10/06/2021 Moe Score Blood Edema Fundus Height Fundus Units Glucose Ketones Leukocytes Nitrite Labor Signs Protein Cervic Dilation Cervic Effacement Cervic Station none none neg Type Weight in lbs Pre/Post Dialysis Refused Weight 155.84372887134 BP Diastolic BP Location Tested BP Systolic BP Type 70 100 Fetus Heart Rate Present A 140 Present Fetus Movement A Yes Comments GBS deferred as patient was sent directly to hospital for DFM, non reactive tracing, and increasing doppler studies. Patient to remain NPO and KT aware and will assess patient. Flowsheet Date 10/10/2021 Moe Score Blood Edema Fundus Height Fundus Units Glucose Ketones Leukocytes Nitrite Labor Signs Protein Cervic Dilation Cervic Effacement Cervic Station trace none none neg Type Weight in lbs Pre/Post Dialysis Refused Weight 155.49414774887 BP Diastolic BP Location Tested BP Systolic BP Type 76 R arm 112 sitting Fetus Heart Rate Present A 145 Fetus Movement Comments BPP 8/8; NST Category 1 but not reactive after 40 min. Pt worried and sent to E for prolonged monitoring. Dopplers 2.4 & 2.6. 58%tile by biometry [email or web address]. NST on Saturday. NEED GBS Flowsheet Date 10/13/2021 Moe Score Blood Edema Fundus Height Fundus Units Glucose Ketones Leukocytes Nitrite Labor Signs Protein Cervic Dilation Cervic Effacement Cervic Station none Type Weight in lbs Pre/Post Dialysis Refused Weight 154.082717493778 BP Diastolic BP Location Tested BP Systolic BP Type 78 122 Fetus Heart Rate Present A Present Fetus Movement A Yes Comments Scheduled for repeat CS on @ [facility]. GBS done today. BPP 8/8, NST categ 1. Umbilical A dopplers wnl today. FKC discussed. Labor/ PIH precautions given. Flowsheet Date 10/24/2021 Moe Score Blood Edema Fundus Height Fundus Units Glucose Ketones Leukocytes Nitrite Labor Signs Protein Cervic Dilation Cervic Effacement Cervic Station Type Weight in lbs Pre/Post Dialysis Refused With clothes 147.806027358688 BP Diastolic BP Location Tested BP Systolic BP Type 68 L arm 120 sitting Fetus Heart Rate Present Fetus Movement Comments Flowsheet Date 12/12/2021 Moe Score Blood Edema Fundus Height Fundus Units Glucose Ketones Leukocytes Nitrite Labor Signs Protein Cervic Dilation Cervic Effacement Cervic Station Type Weight in lbs Pre/Post Dialysis Refused Weight 137.360662668633 BP Diastolic BP Location Tested BP Systolic BP Type 78 122 Fetus Heart Rate Present Fetus Movement Comments Flowsheet Date 03/05/2022 Moe Score Blood Edema Fundus Height Fundus Units Glucose Ketones Leukocytes Nitrite Labor Signs Protein Cervic Dilation Cervic Effacement Cervic Station Type Weight in lbs Pre/Post Dialysis Refused With clothes 137.302396099608 BP Diastolic BP Location Tested BP Systolic BP Type 60 112 sitting Fetus Heart Rate Present Fetus Movement Comments Menstrual History Last Menstrual Date Menses Monthly On Bcp Conception Prior Menses Frequency Hcg Plus Date Menarche Onset Age 0901/29/2021 Genetic Screening And Infection History Question Response Note Recent Travel History Outside of Country false Cystic Fibrosis false Any Other Genetic History false Flavio Disease false Other Infection History false Thalassemia (Cuban, Israeli, Mediterranean, Or Background): MCV < 80 false Patient Or Baby's Father Had A Child With Defects Not Listed Above false Live With Someone With TB Or Exposed To TB false Patient's Age Will Be 35 Years Or Older At Estim ated Date of Delivery false Recurrent Loss, Or A Stillbirth false Hemoglobinopathy Or Carrier false Patient Or Partner Has History Of Genital Herpes false Intellectual Disability/Autism false Maternal Metabolic Disorder (eg, Type 1 Diabetes , PKU) false History of Hepatitis false Omer-Sachs (eg, Baptism, Cajun, Fijian-Cherry) f alse History Of STD, Gonorrhea, Chlamydia, HPV, Syphi lis false Prior GBS-infected child false History of HIV false Personal or Family History o f Neural Tube Defect (Meningomyelocele, Spina Bifida, Or Anencephaly) false Hemophilia Or Other Blood Disorders false Mental Retardation/Autism false Stan's Chorea false If Yes, Was Person Tested For Fragile X? false Other Inherited Genetic Or Chromosomal Disorder false If Yes, Agent(s) And Strength/Dosage false Sickle Cell Disease Or Trait () false Personal or Family History of Congenital Heart D efect false Rash Or Viral Illness Since Last Menstrual Perio d false Muscular Dystrophy false Medications (including Suppl ements, Vitamins, Herbs, OTC Drugs), Illicit/Recreational Drugs, Alcohol false Other Structural Defect false Down Syndrome false Delivery Information Delivery Date Delivery Type Labor Anesthesia Weeks Gestation Incision Type Labor Labor Length Hrs Delivered By Post Complications Tubal Sterilization Discharge Date Comments 2 None Regional-Sp inal 37.2 Low Transvers e false Summer Penaloza MD None false Discharge Information Feeding Method Contraceptive Method Maternal HG B and HCT Levels Bottle Ob Episode Information Episode Created Date Number of Fetuses Patient Bloodtype Patient rh Status Prepregnancy Weight lbs Domestic Partner Domestic Partner Phone Father Name Pigment Processor Status 07/21/19 22 1 DELETED Leroy Calculation Initial Leroy Date Initial Exam Date Initial Exam Provider Initial Ultrasound Date Last Menstrual Period Date Ultra Sound Weeks Gestation 0 Eighteen To Twenty Week Leroy Update Ultra Sound Date Fundal Height At Umbil Quickening Date Ultra Sound Latest Weeks Gestation Final Leroy Confirmed By Final Leroy Confirmed Date Final Leroy Date Ultra Sound Latest Days Gestation 0 0 Menstrual History Last Menstrual Date Menses Monthly On Bcp Conception Prior Menses Frequency Hcg Plus Date Menarche Onset Age Delivery Information Delivery Date Delivery Type Labor Anesthesia Weeks Gestation Incision Type Labor Labor Length Hrs Delivered By Post Complications Tubal Sterilization Discharge Date Comments 0 None 8 false Discharge Information Feeding Method Contraceptive Method Maternal HG B and HCT Levels Ob Episode Information Episode Created Date Number of Fetuses Patient Bloodtype Patient rh Status Prepregnancy Weight lbs Domestic Partner Domestic Partner Phone Father Name Pigment Processor Status 07/21/19 22 1 CLOSED Fetus Data First Name Last Name Admitted to NICU Weight (g) Sex Living Outcome Pediatric Complications Fetus ID Race Codes Race Delivery Type 2721.55 2 F Full Term [id number] Primary Leroy Calculation Initial Leroy Date Initial Exam Date Initial Exam Provider Initial Ultrasound Date Last Menstrual Period Date Ultra Sound Weeks Gestation 0 Eighteen To Twenty Week Leroy Update Ultra Sound Date Fundal Height At Umbil Quickening Date Ultra Sound Latest Weeks Gestation Final Leroy Confirmed By Final Leroy Confirmed Date Final Leroy Date Ultra Sound Latest Days Gestation 0 0 Menstrual History Last Menstrual Date Menses Monthly On Bcp Conception Prior Menses Frequency Hcg Plus Date Menarche Onset Age Delivery Information Delivery Date Delivery Type Labor Anesthesia Weeks Gestation Incision Type Labor Labor Length Hrs Delivered By Post Complications Tubal Sterilization Discharge Date Comments 1 38.1 false Comments : IUGR 9%ile, brow presentat ion Discharge Information Feeding Method Contraceptive Method Maternal HG B and HCT Levels Ob Episode Information Episode Created Date Number of Fetuses Patient Bloodtype Patient rh Status Prepregnancy Weight lbs Domestic Partner Domestic Partner Phone Father Name Pigment Processor Status 05/22/19 24 1 Negative CLOSED Fetus Data First Name Last Name Admitted to NICU Weight (g) Sex Living Outcome Pediatric Complications Fetus ID Race Codes Race Delivery Type Bo false 3401.94 F true Full Term cuns pos [id number] White Repeat Problems Problem Notes +SHAYE with NOB labs. [facility] susana with NOB labs accidently. Will repeat SHAYE post Problem Name Start Date End Date Resolution Snomed Code Not e Past history of section [id number] x 2 at [facility] and Dr Gabriel and then Dr Ramirez and has a boy and a girl IUGR with them and we will do RLTCs and no tubal History of growth retardation 12/06/2023 [id number] growth at 37 weeks and is at 90% Leroy Calculation Initial Leroy Date Initial Exam Date Initial Exam Provider Initial Ultrasound Date Last Menstrual Period Date Ultra Sound Weeks Gestation 12/29/2023 05/22/2023 03/24/2023 0 Eighteen To Twenty Week Leroy Update Ultra Sound Date Fundal Height At Umbil Quickening Date Ultra Sound Latest Weeks Gestation Final Leroy Confirmed By Final Leroy Confirmed Date Final Leroy Date Ultra Sound Latest Days Gestation 0 [email or web address] 11/11/2023 12/29/19 24 0 Pre- Flowsheet Flowsheet Date 05/23/2023 Moe Score Blood Edema Fundus Height Fundus Units Glucose Ketones Leukocytes Nitrite Labor Signs Protein Cervic Dilation Cervic Effacement Cervic Station Type Weight in lbs Pre/Post Dialysis Refused Weight 142.365013983622 BP Diastolic BP Location Tested BP Systolic BP Type 74 114 Fetus Heart Rate Present A 169 Fetus Movement Comments Sneak Peek today. Plan nob l abs next visit. Augmentin for URI and ear infection. Discussed OTC monistat if needed. B6/Unisom for nausea. Flowsheet Date 06/03/2023 Moe Score Blood Edema Fundus Height Fundus Units Glucose Ketones Leukocytes Nitrite Labor Signs Protein Cervic Dilation Cervic Effacement Cervic Station Type Weight in lbs Pre/Post Dialysis Refused Weight 142.937284699455 BP Diastolic BP Location Tested BP Systolic BP Type 74 116 Fetus Heart Rate Present A 168 Fetus Movement Comments NOB labs today with [place] . Complains of left sided pain Saturday that has improved. Tender over round ligament today. Precautions reviewed. Flowsheet Date 06/26/2023 Moe Score Blood Edema Fundus Height Fundus Units Glucose Ketones Leukocytes Nitrite Labor Signs Protein Cervic Dilation Cervic Effacement Cervic Station Type Weight in lbs Pre/Post Dialysis Refused With clothes 142.361373568695 BP Diastolic BP Location Tested BP Systolic BP Type 72 R arm 116 sitting Fetus Heart Rate Present A 149 Fetus Movement A Yes Comments Complains of feeling crampy overall. No bleeding. No tenderness. No discharge, odor, or urinary symptoms. Requesting medication for anxiety. Discussed seeing Anja and would like to start with zoloft at this time. Precautions reviewed. Plan MSAFP at next visit. Flowsheet Date 07/19/2023 Moe Score Blood Edema Fundus Height Fundus Units Glucose Ketones Leukocytes Nitrite Labor Signs Protein Cervic Dilation Cervic Effacement Cervic Station none none none neg Type Weight in lbs Pre/Post Dialysis Refused Weight 145.136258983780 BP Diastolic BP Location Tested BP Systolic BP Type 74 116 Fetus Heart Rate Present A 138 Fetus Movement Comments AFP drawn todayCurrently c/o LUQ pain on the side of her ribcage x 2 weeks. She describes it as sharp in nature and intermittent. She denies N/V. She is constipated on occasion and does experience flatulence. Discussed taking Gas X, as well as discussed anti-constipation measures. If ineffective she will try Pepcid. She will keep upcoming visit with Jen Brown to re-evaluate Flowsheet Date 07/24/2023 Moe Score Blood Edema Fundus Height Fundus Units Glucose Ketones Leukocytes Nitrite Labor Signs Protein Cervic Dilation Cervic Effacement Cervic Station Type Weight in lbs Pre/Post Dialysis Refused With clothes 145.0141675791 BP Diastolic BP Location Tested BP Systolic BP Type 78 L arm 106 sitting Fetus Heart Rate Present A 145 Fetus Movement A Yes Comments Reports that pain improved a fter taking Tums. Precautions reviewed. Plan anatomy at next visit. PA sent. Flowsheet Date 08/13/2023 Moe Score Blood Edema Fundus Height Fundus Units Glucose Ketones Leukocytes Nitrite Labor Signs Protein Cervic Dilation Cervic Effacement Cervic Station none Type Weight in lbs Pre/Post Dialysis Refused Weight 146.52500486224 BP Diastolic BP Location Tested BP Systolic BP Type 72 110 Fetus Heart Rate Present A 144 Fetus Movement A Yes Comments Anatomy complete. Denies que stions or concerns. PTL/PIH precautions reviewed. Flowsheet Date 09/13/2023 Moe Score Blood Edema Fundus Height Fundus Units Glucose Ketones Leukocytes Nitrite Labor Signs Protein Cervic Dilation Cervic Effacement Cervic Station trace 25 Type Weight in lbs Pre/Post Dialysis Refused Weight 154.514610264601 BP Diastolic BP Location Tested BP Systolic BP Type 74 118 Fetus Heart Rate Present A 140 Fetus Movement A Yes Comments Flowsheet Date 10/09/2023 Moe Score Blood Edema Fundus Height Fundus Units Glucose Ketones Leukocytes Nitrite Labor Signs Protein Cervic Dilation Cervic Effacement Cervic Station Type Weight in lbs Pre/Post Dialysis Refused BP Diastolic BP Location Tested BP Systolic BP Type Fetus Heart Rate Present Fetus Movement Comments Flowsheet Date 10/09/2023 Moe Score Blood Edema Fundus Height Fundus Units Glucose Ketones Leukocytes Nitrite Labor Signs Protein Cervic Dilation Cervic Effacement Cervic Station trace none none Type Weight in lbs Pre/Post Dialysis Refused 160.177699948384 BP Diastolic BP Location Tested BP Systolic BP Type 76 120 Fetus Heart Rate Present A 146 Present Fetus Movement A Yes Comments Growth 28.4%tile todayAFI 19 .2Baseline PIH labs today for c/o generalized edema, headaches, 1+ Pro in office todayFailed 1hr. Presents for 3hr today. She did not get CBC/Antibody screen at [facility] with her initial 1hr labs. Incidently an SHAYE was drawn and found to be positive. Discussed with Dr. Reynoso. Will repeat SHAYE post Flowsheet Date 10/14/2023 Moe Score Blood Edema Fundus Height Fundus Units Glucose Ketones Leukocytes Nitrite Labor Signs Protein Cervic Dilation Cervic Effacement Cervic Station none 29 cm none trace Type Weight in lbs Pre/Post Dialysis Refused With clothes 159.652538518633 BP Diastolic BP Location Tested BP Systolic BP Type 76 R arm 122 sitting Fetus Heart Rate Present A 140 Present Fetus Movement A Yes Comments desires to schedule repeat c section. Has had both otRher c sections done at 37 wks due to IUGR. Currently, growth is 28%. Will schedule for 39 wks but may need to change depending on prgress this preg Flowsheet Date 11/01/2023 Moe Score Blood Edema Fundus Height Fundus Units Glucose Ketones Leukocytes Nitrite Labor Signs Protein Cervic Dilation Cervic Effacement Cervic Station none none Type Weight in lbs Pre/Post Dialysis Refused With clothes 160.506073205294 BP Diastolic BP Location Tested BP Systolic BP Type 74 R arm 122 sitting Fetus Heart Rate Present A 149 Present Fetus Movement A Yes Comments US for ZAN and growth- EFW 7 1%tile, ZAN 18.21 Flowsheet Date 11/11/2023 Moe Score Blood Edema Fundus Height Fundus Units Glucose Ketones Leukocytes Nitrite Labor Signs Protein Cervic Dilation Cervic Effacement Cervic Station none 33 cm none Uterine Contract ions neg Type Weight in lbs Pre/Post Dialysis Refused With clothes 164.061195594208 BP Diastolic BP Location Tested BP Systolic BP Type 70 R arm 118 sitting Fetus Heart Rate Present A 145 Present Fetus Movement A Yes Comments c/o contractions. evaluated in [facility] yesterday and told she was 3 cm. No cervical change. Sent home. Per patient told that her LEROY might be wrong by the [facility] staff.Reviewed accurately assigned LEROY with normal growth this . Discussed that we schedule 39 week repeat c/s but if she experiences labor prior to 39 weeks, she would present to the [facility] where c/s is performed earlier. Flowsheet Date 11/15/2023 Moe Score Blood Edema Fundus Height Fundus Units Glucose Ketones Leukocytes Nitrite Labor Signs Protein Cervic Dilation Cervic Effacement Cervic Station none 34 cm none Uterine Contract ions neg 0cm 70% -3 Type Weight in lbs Pre/Post Dialysis Refused Weight 164.482202336157 BP Diastolic BP Location Tested BP Systolic BP Type 74 120 Fetus Heart Rate Present A 156 Fetus Movement A Yes Comments She currently c/o contractio ns every 3-5 minutes since last night, as well as bilateral pain from her previous 2 cesareans. Cervix cl/70/-3 NST Reactive with contractions every 2-[address] Martins. Patient instructed to present to [facility] Flowsheet Date 11/22/2023 Moe Score Blood Edema Fundus Height Fundus Units Glucose Ketones Leukocytes Nitrite Labor Signs Protein Cervic Dilation Cervic Effacement Cervic Station none none Uterine Contract ions neg 0cm 70% -3 Type Weight in lbs Pre/Post Dialysis Refused Weight 164.128542066908 BP Diastolic BP Location Tested BP Systolic BP Type 78 120 Fetus Heart Rate Present A 138 Present Fetus Movement A Yes Comments Left incisional pain continu es to be bothersome. Irregular ctx's. Cervix unchanged. Patient reassured Flowsheet Date 11/29/2023 Moe Score Blood Edema Fundus Height Fundus Units Glucose Ketones Leukocytes Nitrite Labor Signs Protein Cervic Dilation Cervic Effacement Cervic Station none 35 cm none none neg Type Weight in lbs Pre/Post Dialysis Refused Weight 165.372545229807 BP Diastolic BP Location Tested BP Systolic BP Type 74 116 Fetus Heart Rate Present A 143 Fetus Movement A Yes Comments GBS next visit Flowsheet Date 12/06/2023 Moe Score Blood Edema Fundus Height Fundus Units Glucose Ketones Leukocytes Nitrite Labor Signs Protein Cervic Dilation Cervic Effacement Cervic Station trace Type Weight in lbs Pre/Post Dialysis Refused Weight 172.703012539611 BP Diastolic BP Location Tested BP Systolic BP Type 82 130 Fetus Heart Rate Present A 140 Fetus Movement A Yes Comments has had some HAs and has fio ricet and will call in vistaril and had a miigraine and cvx at 35 weeks ft/75%, FL was 71mm today Flowsheet Date 12/12/2023 Moe Score Blood Edema Fundus Height Fundus Units Glucose Ketones Leukocytes Nitrite Labor Signs Protein Cervic Dilation Cervic Effacement Cervic Station Type Weight in lbs Pre/Post Dialysis Refused Weight 164.886487484855 BP Diastolic BP Location Tested BP Systolic BP Type 70 118 Fetus Heart Rate Present A 150 Fetus Movement A Yes Comments was seen in [facility] for left sc ar pain from prior c-sections and was told her c- section may need to be moved up due to uterine rupture. pt improved today. discussed precautions on when we are concerned for rupture and when to be seen in [facility]. RTO in 1 week, will try to get US to assess scar Flowsheet Date 01/01/2024 Moe Score Blood Edema Fundus Height Fundus Units Glucose Ketones Leukocytes Nitrite Labor Signs Protein Cervic Dilation Cervic Effacement Cervic Station Type Weight in lbs Pre/Post Dialysis Refused With clothes 145.617420652222 BP Diastolic BP Location Tested BP Systolic BP Type 70 L arm 110 sitting Fetus Heart Rate Present Fetus Movement Comments Flowsheet Date 01/17/2024 Moe Score Blood Edema Fundus Height Fundus Units Glucose Ketones Leukocytes Nitrite Labor Signs Protein Cervic Dilation Cervic Effacement Cervic Station Type Weight in lbs Pre/Post Dialysis Refused With clothes 147.560368568869 BP Diastolic BP Location Tested BP Systolic BP Type 80 118 Fetus Heart Rate Present Fetus Movement Comments Flowsheet Date 02/05/2024 Moe Score Blood Edema Fundus Height Fundus Units Glucose Ketones Leukocytes Nitrite Labor Signs Protein Cervic Dilation Cervic Effacement Cervic Station Type Weight in lbs Pre/Post Dialysis Refused Weight 145.93534957128 BP Diastolic BP Location Tested BP Systolic BP Type 72 112 Fetus Heart Rate Present Fetus Movement Comments Menstrual History Last Menstrual Date Menses Monthly On Bcp Conception Prior Menses Frequency Hcg Plus Date Menarche Onset Age 1103/24/2023 Delivery Information Delivery Date Delivery Type Labor Anesthesia Weeks Gestation Incision Type Labor Labor Length Hrs Delivered By Post Complications Tubal Sterilization Discharge Date Comments 4 Sponta neous Regional-Sp inal 38.2 Low Transvers e Danilo Reynoso MD None false 12/20/2023 PP depresion and axiety Discharge Information Feeding Method Contraceptive Method Maternal HG B and HCT Levels Breast Ob Episode Information Episode Created Date Number of Fetuses Patient Bloodtype Patient rh Status Prepregnancy Weight lbs Domestic Partner Domestic Partner Phone Father Name Pigment Processor Status 08/11/19 25 1 O Negative OPEN Fetus Data First Name Last Name Admitted to NICU Weight (g) Sex Living Outcome Pediatric Complications Fetus ID Race Codes Race Delivery Type [id number] Problems Problem Notes Hx of mom and sisters with P re-e, plan to start LDASA at 12 weeks Problem Name Start Date End Date Resolution Snomed Code Not e Body mass index 30+ - obesity 08/31/2024 [id number] BMI pre-preg 31 .8 Finding of pattern of 08/10/2024 [id number] short interval with delivery on 12/17/23 Past history of section 08/10/2024 [id number] CS x3- discusse d with Dr Reynoso he recommends RLTCS with tubal at 38 weeks due to thinning of lower uterine segment noted during section History of depression 08/10/2024 [id number] History of PPD with last Leroy Calculation Initial Leroy Date Initial Exam Date Initial Exam Provider Initial Ultrasound Date Last Menstrual Period Date Ultra Sound Weeks Gestation 08/10/2024 0 Eighteen To Twenty Week Leroy Update Ultra Sound Date Fundal Height At Umbil Quickening Date Ultra Sound Latest Weeks Gestation Final Leroy Confirmed By Final Leroy Confirmed Date Final Leroy Date Ultra Sound Latest Days Gestation 0 [email or web address] 08/19/2024 03/26/20 25 0 Pre-liseth Flowsheet Flowsheet Date 08/27/2024 Moe Score Blood Edema Fundus Height Fundus Units Glucose Ketones Leukocytes Nitrite Labor Signs Protein Cervic Dilation Cervic Effacement Cervic Station Type Weight in lbs Pre/Post Dialysis Refused With clothes 154.661706029161 BP Diastolic BP Location Tested BP Systolic BP Type 60 100 sitting Fetus Heart Rate Present A 172 Fetus Movement Comments visit - see A/P Flowsheet Date 08/31/2024 Moe Score Blood Edema Fundus Height Fundus Units Glucose Ketones Leukocytes Nitrite Labor Signs Protein Cervic Dilation Cervic Effacement Cervic Station none none none neg Type Weight in lbs Pre/Post Dialysis Refused With clothes 155.639693875681 BP Diastolic BP Location Tested BP Systolic BP Type 56 98 sitting Fetus Heart Rate Present A 163 Fetus Movement A No Comments NOB, NIPT collected today. R ecently moved to [facility] discussed high risk due to having 3 sections and short interval since last delivery. Discussed Transfer of Care to [facility] for delivery at [place] due to high risk status, pt wanting tubal, and pt living in [place]. Pt would like to transfer her care to [facility]. Will send transfer of care and they will call patient to schedule. Advised can see patient 30 days after DENIZ. Menstrual History Last Menstrual Date Menses Monthly On Bcp Conception Prior Menses Frequency Hcg Plus Date Menarche Onset Age Genetic Screening And Infection History Question Response Note Patient's Age Will Be 35 Years Or Older At Estim ated Date of Delivery false Personal or Family History o f Neural Tube Defect (Meningomyelocele, Spina Bifida, Or Anencephaly) false Personal or Family History of Congenital Heart D efect false Maternal Metabolic Disorder (eg, Type 1 Diabetes , PKU) false Recurrent Loss, Or A Stillbirth false Patient Or Partner Has History Of Genital Herpes false Prior GBS-infected child false History of HIV false History of Hepatitis false Genetic Carrier Screen positive false Delivery Information Delivery Date Delivery Type Labor Anesthesia Weeks Gestation Incision Type Labor Labor Length Hrs Delivered By Post Complications Tubal Sterilization Discharge Date Comments Discharge Information Feeding Method Contraceptive Method Maternal HG B and HCT Levels
--- OUTSIDE RECORDS SUMMARY | 2024-11-02 11:45 | XMS_ITS | Clinical Summary ---
Author Organization [address] Address [address] [place] [address] Care Team Providers Care Tabulating Clerk Name Role Phone Summer Nguyễn MD Unavailable No, Physician Primary Care Provider [phone] Allergies No known active allergies Medications albuterol [...] Preop anemia optimization [] Readdress contraception at viability, interested in BS Supervision of high-risk , second trime ster 09/08/2024 Overview (10/26/2024): [] OB consult only, [] Co-management vs. [x] Full MFM Care; [] Red Team [] Blue Team Referring Provider: Ysabel Ku [phone] [] or Medicare Insurance [x] Dating Criteria: [...] [] MOC: [] Method of feeding: [] Irrigation System Installer (specifically which provider): [] PP Depression Discussed: [...] 09/08/2024 37 weeks gestation of 10/17/2021 09/08/2024 Encounters Date Type Department Care Team Description 10/28/2024 2:00 PM CDT Office Visit [facility] 7th Floor [address] [place] [address] Anxiety and depression (Primary Dx); ASCUS of cervix with negative high risk HPV; History of section complicating ; Supervision of high-risk , second trimester; Short interval between pregnancies affecting in second trimester, antepartum; History of poor growth 10/28/2024 1:10 PM CDT - 10/28/2024 11:59 PM CDT Hospital Encounter [facility] - Ultrasound [address] [place] [address], 7th Floor, [address] [place] [address] Supervision of high-risk , unspecified trimester; Ventricular premature beats; History of section complicating ; Short interval between pregnancies affecting in second trimester, antepartum Discharge Disposition: Discharge to home or self care 09/23/2024 3:15 PM CDT Office Visit [facility] Maternal- Medicine [address] [place] [address] 7th Floor [address] [place] [phone] Ventricular premature beats (Primary Dx); Supervision of high-risk , unspecified trimester; History of section complicating ; Short interval between pregnancies affecting in second trimester, antepartum; ASCUS of cervix with negative high risk HPV; Anxiety and depression 09/23/2024 2:10 PM CDT - 09/23/2024 11:59 PM CDT Hospital Encounter [facility] - Ultrasound [address] [place] [address], 7th Floor, [address] [place] [address] Supervision of high-risk , unspecified trimester Discharge Disposition: Discharge to home or self care 09/07/[address] [facility] Maternal- Medicine [address] [place] [address] 7th Floor [address] [place] [phone] Payal Joel CMA Scheduling US/OB New from Last 3 Months Immunizations Immunization Administration Dates Next Due MMR 10/19/2021(Deferred: Contraindic ation) Surgical History Surgery Date Site/Laterality Comments SECTION 09/10/2020 x2 Medical History Medical History Date Comments Known health problems: none Mild intermittent asthma with acute exacerbation Family History Medical History Relation Name Comments No Known Problems Father Arthritis Mother Relation Name Status Comments Father Mother Social History Tobacco Use Types Packs/Day Years [...] and heating? Not hard at all 12/17/2023 [facility] [facility] Occupat ional Health - Occupational Stress [...] things needed for daily living? No 12/17/2023 [place] Depression Scale Answer Date Recorded [place] Depression Scale Total 2 12/19/2023 The thought [...] any time in the past 12 m [facility], were you homeless or living in a long term (including now)? 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 Gender Identity Not on file Sexual Orientation Not on file Occupation Industry Job Start Date Job End Date UNEMPLOYED Not on file Not on file Not on file Obstetrics History Para Term AB IAB SAB Ectopic Multiple Livin g Live Births 6 3 3 0 2 2 3 3 Date Outcome GA Total Labor Labor/2nd/3rd Weight Sex Type Anes PTL Miguel A1 A5 Name Clin SAB 0 SAB 8w0 d 2020 Term 38w 1d 2.86 kg (6 lb 4.9 oz) F CS-LT ranv Spinal Livin g Complications: Intolera nce,Other (Comment) 2021 Term 37w 2d 0h 02m 0h 02m 2.92 kg (6 lb 7 oz) M CS-LT ranv Spinal N Livin g 9 9 NAOMI Doe,Gladys Quinones MD Complications:None Delivery Location:[facility] ([facility] L AND D PROCEDURE) 2023 Term 38w 2d 0h 01m 0h 01m 3.39 kg (7 lb 7.6 oz) F C-Sec tion Spinal N Livin g 8 9 Anupam doe, Chang Cary MD Complications:None Delivery Location:[facility] ([facility] L AND D PROCEDURE) Current Summary Episode Dates Number of Fetuses Estimated Date of Delivery 09/08/2024 - Present (11/02/2024) 03/26/2025 (set by Pat Altman MD on 09/23/2024 based on Last Menstrual Period on 06/19/2024) Dating Summary Based On JOSE GA Diff Last Menstrual Period on 06/19/2024 03/26/2025 Working Ultrasound on 08/10/2024 03/28/2025 -2d GA:7w1d Vitals Pregravid Weight Height TWG (As of 11/02/2024) Pregrav id BMI 152.4 cm (5') Date GA Fund Present FHR Mvmt BP Weight Edema Alb Glu Ket Dil/ Eff/Sta 5 13w5d Inpatient data not displayed here. See encounter summary. 18w5d Inpatient data not displayed here. See encounter summary. Notes Progress Notes - Office Visi t - 10/28/2024 - GA:18w5d 10/28/2024 - 18w5d - Michelle Sharma MD MFM Return Visit 10/28/2024 Jamilah Valenzuela is a 24 y.o. at 18w5d who is here for a return OB visit. Subjective: She reports feeling good overall, no concerns Objective: BP 111/71 (BP Location: Left arm, Patient Position: Sitting) Pulse 89 Ht 152.4 cm (5') Wt 156 lb (70.8 kg) LMP 06/19/2024 SpO2 97% BMI 30.47 kg/m General: NAD Abdomen: Gravid Extremities: no edema Ultrasound: 10/28/2024 Narrative & Impression IMPRESSION: IUP - 18w 2d - interval growth is normal - size is AGA No structural malformations or markers for aneuploidy are identified. The cervical length measurement is normal. US may not detect all anomalies. Assessment/Plan: Jamilah Valenzuela is a 24 y.o. at 18w5d by with a complicated by the following concerns: Problem List Short interval between pregnancies affecting in second trimester, antepartum Overview Previously counseled History of section complicating Overview Ms. Valenzuela has a history of three prior deliveries, with the last notable for a uterine window underlying the bladder flap (op note available in Epic) and intraabdominal scar tissue. S/p counseling Plan: [] Given uterine window plan for 36 w 0 d- 37 6 d delivery [] Preop anemia optimization [] Readdress contraception at viability, interested in BS Relevant Orders US Ob Follow Up Supervision of high-risk , second trimester Overview [] OB consult only, [] Co-management vs. [x] Full MFM Care; [] Red Team [] Blue Team Referring Provider: Ysabel Ku [phone] [] or Medicare Insurance [x] Dating Criteria: [...] [] MOC: [] Method of feeding: [] Irrigation System Installer (specifically which provider): [] PP Depression Discussed: [] PP visits scheduled: Vaccines [] Flu Shot (Jan-Apr): [] COVID vaccine: [] Tdap (27-36wks): [] RSV vaccine (32-36wks): [] PP HPV vaccine counseling (<=26 yo): Relevant Orders US Ob Follow Up Anxiety and depression - Primary Overview Ms. Valenzuela reports a history of depression after prior pregnancies. Plan: [] Monitor sx ASCUS of cervix with negative high risk HPV Overview Planned for follow up in 2025 per ASCCP guidelines w/ primary OBGYN. History of poor growth Overview Growth scan at about 28 weeks and 34 weeks Progress Notes - Office Visi t - 09/23/2024 - GA:13w5d 09/23/2024 - 13w5d - Pat Altman MD Maternal Medicine Transfer of Care Note Reason for Consult: DENIZ for rCS Requesting Provider: [place] Dear MARIE Ku, We had the pleasure of seeing your patient Jamilah Valenzuela in our office today. As you know, she is a 24 y.o. at 13w5d here today for a consult regarding history of CS x3, history of prior with FGR, short interval , and h/o PPD. Today she is doing well, she reports no complaints. Was recently seen in urgent care with significant abdominal pain at her old scar site which has since resolved. Last operative note was notable for a 3x4 cm window underneath the bladder flap in the HARISH. Past Medical History: Diagnosis Date Known health problems: none Mild intermittent asthma with acute exacerbation Past Surgical History: Procedure Laterality Date SECTION 09/10/2020 x2 Past Gynecologic History: Prior STIs: Yes, remote History of abnormal pap: No Last pap smear: unknown Patient's last menstrual period was 06/19/2024. Denies history of uterine anomalies or fibroids OB History Para Term AB Living 6 3 3 0 2 3 SAB IAB Ectopic Multiple Live Births 2 3 # Outcome Date GA Lbr Bebeto/2nd Weight Sex Type Anes PTL Lv 6 Current 5 Term 12/17/23 38w2d 3.39 kg (7 lb 7.6 oz) F Spinal N MIGUEL 4 Term 10/17/21 37w2d 2.92 kg (6 lb 7 oz) M CS-LTranv Spinal N MIGUEL 3 Term 09/11/20 38w1d 2.86 kg (6 lb 4.9 oz) F CS-LTranv Spinal MIGUEL Complications: Intolerance, Other (Comment) 2 SAB 07/2019 8w0d 1 SAB Current Outpatient Medications on File Prior to Visit Medication Sig Dispense Refill albuterol HFA (PROVENTIL HFA,VENTOLIN HFA,PROAIR HFA) 90 mcg/actuation inhaler Inhale 2 puffs every 6 (six) hours as needed for wheezing aspirin 81 mg enteric coated tablet Take 1 tablet (81 mg total) by mouth daily vit-iron fum-folic ac ( Vitamin) 27 mg iron- 800 mcg tablet Take 1 tablet every day by oral route. [DISCONTINUED] docusate sodium (COLACE) 100 mg capsule Take 1 capsule (100 mg total) by mouth 2 (two) times a day as needed for constipation (Patient not taking: Reported on 09/23/2024) 30 capsule 0 [DISCONTINUED] guaiFENesin ER (MUCINEX) 600 mg 12 hr tablet Take 1 tablet (600 mg total) by mouth 2 (two) times a day as needed for cough (Patient not taking: Reported on 09/23/2024) 30 tablet 0 [DISCONTINUED] hydrOXYzine (VISTARIL) 25 mg capsule Take 1 capsule (25 mg total) by mouth 3 (three) times a day as needed for anxiety (migraine) (Patient not taking: Reported on 09/23/2024) [DISCONTINUED] ibuprofen (ADVIL,MOTRIN) 600 mg tablet Take 1 tablet (600 mg total) by mouth every 6 (six) hours (Patient not taking: Reported on 09/23/2024) 60 tablet 0 [DISCONTINUED] oxyCODONE-acetaminophen (PERCOCET) 7.5-325 mg per tablet Take 1 tablet by mouth every 4 (four) hours as needed for pain (Patient not taking: Reported on 09/23/2024) 12 tablet 0 [DISCONTINUED] simethicone (MYLICON) 80 mg chewable tablet Take 1 tablet (80 mg total) by mouth 4 (four) times a day as needed for flatulence (Patient not taking: Reported on 09/23/2024) 60 tablet 0 No current facility-administered medications on file prior to visit. No current facility-administered medications for this visit. Family History: Family History Problem Relation Age of Onset Arthritis Mother No Known Problems Father Neural tube defects: No Down syndrome or other chromosomal anomalies: No Hemophilia, sickle cell, bleeding/clotting disorder: No Muscular dystrophy: No Cystic fibrosis: No Intellectual disability or Fragile X: No Sevier disease: No Other defects or genetic disorders: No No Known Allergies Social History Tobacco Use Smoking status: Never Smokeless tobacco: None Substance and Sexual Activity Drug use: Never Sexual activity: Yes Partners: Male control/protection: None Alcohol Use: Not At Risk (12/17/2023) AUDIT-C Frequency of Alcohol Consumption: Never Average Number of Drinks: Patient does not drink Frequency of Binge Drinking: Never Works as dental administrative receptionist Smoke cigarettes, cigars, E-cigs: No Beer, wine, or liquor: No Street drugs/marijuana: No Dating: JOSE of Estimated Date of Delivery: 03/26/25 by LMP c/w 7 w US Physical Exam Vitals BP 108/72 (BP Location: Left arm, Patient Position: Sitting) Pulse 84 Ht 152.4 cm (5') Wt 156 lb (70.8 kg) LMP 06/19/2024 SpO2 98% BMI 30.47 kg/m General: Healthy, alert, active, cooperative, and in no distress Abd soft, gravid, NTTP. Uterus mobile, NTTP. Well healed scar. The rest of the exam was deferred due to the consultative nature of this visit. Ultrasound 09/24/2024: 13w5d +FHT Please see the separate report for full details Assessment: Ms. Jamilah Valenzuela is a julissa 24 y.o. at 13w5d here today for a consult regarding: Recommendations: Problem Ascus of Cervix With Negative High Risk Hpv Planned for follow up in 2025 per ASCCP guidelines w/ primary OBGYN. Short Interval Between Pregnancies Affecting in Second Trimester, Antepartum We reviewed the limited data regarding short inter intervals and that in general, spacing pregnancies by 12-18 months may have benefits for both maternal and child health. History of Section Complicating Ms. Valenzuela has a history of three prior deliveries, with the last notable for a uterine window underlying the bladder flap (op note available in Epic) and intraabdominal scar tissue. We reviewed that with subsequent deliveries risk of injury to surrounding structures increases, as well as potential for increased blood loss or other complications. We reviewed the risk of uterine rupture in the event of contractions and encouraged her to have a low threshold to be evaluated for pain. We also discussed that in the setting of prior uterine window a 37 week delivery would be reasonable. Finally, we discussed that some providers may recommend a midline vertical incision, and that this would ultimately be at the discretion of the surgeon at time of delivery. Ms. Valenzuela expressed concern today regarding tubal sterilization and risk of were she to opt not to be sterilized. We discussed that while risks increase with subsequent pregnancies, we are always supportive of her reproductive choice and that there are many non-permanent options available if she does not feel ready for tubal. Plan: [] 37 wk delivery [] Preop anemia optimization [] Readdress BCM at viability Supervision of High-Risk , Second Trimester [] OB consult only, [] Co-management vs. [x] Full MFM Care; [] Red Team [] Blue Team Referring Provider: Ysabel Ku [phone] [] or Medicare Insurance [x] Dating Criteria: [...] (if indicated): 2nd Trimester [] Anatomy ultrasound: ordered [] CBC/1hr gtt at 24-28wks: [] Rhogam at 28 wks (if Rh neg): 3rd Trimester [] CBC/HIV/RPR/T&S: [] GBS: [] GC/CT (if indicated): [] testing: Counseling [] MOD: [] Place of delivery: [] Epidural: [] Accepts Blood Products: [] Stop ASA: [] MOC: [] Method of feeding: [] Irrigation System Installer (specifically which provider): [] PP Depression Discussed: [] PP visits scheduled: Vaccines [] Flu Shot (Jan-Apr): [] COVID vaccine: [] Tdap (27-36wks): [] RSV vaccine (32-36wks): [] PP HPV vaccine counseling (<=26 yo): Anxiety and Depression Ms. Valenzuela reports a history of depression after prior pregnancies. We reviewed the risk of recurrence and importance of monitoring mood during . Plan: [] Monitor sx [] Baseline EPDS next visit Other Specified Diseases and Conditions Complicating (Resolved) We have scheduled her to return in 4 weeks with a visit and anatomy scan. Thank you for the opportunity to be involved in the care of your patient. Should you have any further questions or concerns, please do not hesitate to call us. Sincerely, Pat Altman MD PGY7 Maternal Medicine Fellow Patient was seen and discussed with Dr. Watters Cosigned by Danilo Watters MD at 09/29/2024 6:30 AM CDT Associated attestation - Danilo Watters MD - 09/29/2024 6:30 AM CDT I have seen and examined the patient. I agree with the findings and plan of care as documented in the resident/fellow's note. Progress Notes - Abstract - 09/08/2024 - GA:11w4d 09/08/2024 - w4d - Shilpa Sorensen RMA Current OB records are under media tab. 10/17/21 and 12/17/23 op notes are in Epic. 2020 op note is under media tab. Last Filed Vital Signs Vital Sign Reading [...] 10/28/2024 2:24 PM CDT Plan of Treatment Health Maintenance Due Date Last Done Comments Cervical Cancer Screening 1998 Varicella Vaccines (2 of 2 - 13+ 2-dose series) 08/27/2013 05/29/2012 Regular Well Visit/Exam 18-64 01/10/2016 DTaP/Tdap/Td Vaccine (7 - Td or Tdap) 01/04/2020 01/03/2010, 11/30/2003, 07/08/1999, Additional history exists Depression Screening 12/18/2024 12/19/2023 Influenza Vaccine (Season Ended) 2025 07/30/2013, 03/17/2010 Hepatitis B Screening Completed 1998 , 1998, 1998 HPV Vaccines Completed 12/18/2010, 03/06, 01/03/2010 Hepatitis C Screening Completed 08/31/2024 Pneumococcal vaccine <65 Aged Out No longer eligible based on patient's age to complete this topic Procedures Procedure Name Priority Date/Time Associated Diagnosis [...] HIV P24 Nonreactive Nonreactive , Invalid Blood Result [facility] Ysabel Ku NP LAB MICROBIOLOGY - GENERAL OR DERABLES Final Result * Hepatitis C antibody Blood (08/31/2024) SCRIBED HCV ab non-reacti ve Blood Result [facility] Ysabel Ku NP LAB MICROBIOLOGY - GENERAL OR DERABLES Final Result * ABO/Rh (08/31/2024) SCRIBED ABO/Rh O- Blood Result [facility] Ysabel Ku CASH SALES AUDIT CLERK LAB BLOOD BANK TEST ORDERABLE S Final Result * Rubella IgG antibody Blood (08/31/2024) Rubella IgG Scribed Immune Blood Result [facility] Ysabel Ku NP LAB MICROBIOLOGY - GENERAL OR DERABLES Final Result * RPR Blood (08/31/2024) SCRIBED RPR Non-Reacti ve Non-Reacti ve Blood Ysabel Ku LAB MICROBIOLOGY - GENERAL OR DERABLES Final Result * Hepatitis B Surface Antigen Blood (08/31/2024) SCRIBED HBsAg Nonreactive Nonreactive , Invalid Blood Ysabel Ku NP LAB MICROBIOLOGY - GENERAL OR DERABLES Final Result * CBC without differential (08/31/2024) Pathologist [facility] Hct 38.6 Hgb 13.3 Plt 298 Blood Ysabel Ku LAB BLOOD ORDERABLES Final Re sult * Antibody screen (08/31/2024) Pathologist [facility] SCRIBED Indirect Antiglobulin negative Blood Ysabel Ku LAB BLOOD BANK TEST ORDERABLE S Final Result * Chlamydia trachomatis culture (08/31/2024) Pathologist [facility] SCRIBED Chlamydia culture negative Result [facility] Ysabel Ku NP LAB MICROBIOLOGY - GENERAL OR DERABLES Final Result * Urine culture (08/31/2024) Pathologist [facility] SCRIBED Urine culture no growth Result [facility] Ysabel Ku NP LAB MICROBIOLOGY - GENERAL OR DERABLES Final Result * N. gonorrhoeae culture (08/31/2024) SCRIBED Gonorrhea culture negative Result [facility] Ysabel Ku NP LAB MICROBIOLOGY - GENERAL OR DERABLES Final Result * Varicella Zoster IgG antibody Blood (08/31/2024) SCRIBED Varicella Zoster, IgG Positive Blood Ysabel Ku NP LAB MICROBIOLOGY - GENERAL OR DERABLES Final Result * Hemoglobin A1c (08/31/2024) SCRIBED Hemoglobin A1c 4.7 4.0 - 5.6 % Blood Ysabel Ku NP LAB BLOOD ORDERABLES Final Re sult from Last 3 Months Insurance [employer] [facility] [employer] [facility] [employer] [facility] [employer] Member Subscriber Plan / Payer (Ef fective 2020-Present) Name:Jamilah Valenzuela Relation to Subscriber:Self Name:Jamilah Valenzuela Payer ID:[id number] (NAIC) Group ID:Not on file Type:MEDICAID RISK OTHER Address: [facility] [id number] [place] [id number] Advance Directives For more information, please contact: [phone] * Full Code (Latest Code Status on [...] in case of cardiopulmonary arrest Care Teams Tabulating Clerk Relationship Specialty Start Date End Date No, Physician PCP - General 10/07/23 Summer Nguyễn MD [address] [place] [id number] Consulting Physician Obstetrics and Gynecology 10/19/21
--- OUTSIDE RECORDS SUMMARY | 2024-11-02 11:47 | XMS_ITS | Continuity of Care Document ---
Author Organization [facility] Address [address] [place] [address] [address] [place] [address] Phone Care Team Providers Care Respiratory Therapy Manager Name Role Phone Priscilla Epps Unavailable Unavailable Advance Directives Directive Yes / No Effective Date File Name No Information Encounters Encounter Description Practice Location Reason(s) For Visit Diagnoses Date Provider Providers Copied on Encounter [facility], [address] [place] [address] [address], [place], [place], [id number], [place] tel:[phone] [facility] No Information Aug-2 3-200 2 Supriya Wells. [address] , [address], [place], [address], [place]. tel:[phone] Family History Family Member Type Diagnosis Age At Onset No Information Payers Payer name Insurance type Covered republican ID Authoriza tion(s) No Information Social History [...]
--- NOTE | 2024-11-02 11:52 | ED_ITS ---
HPI - URI/Sore Throat General Chief Complaint: Upper Respiratory Infection Stated Complaint: congestion/ear pain Time Seen by Provider: 11/02/24 11:52 Source: patient and RN notes reviewed Mode of arrival: ambulatory Limitations: no limitations History of Present Illness HPI Narrative: 24-year-old female presented for complaint nasal congestion and drainage, cough, sore throat and bilateral ear pressure. Onset 3 days. Endorses chest congestion causes shortness of breath. Patient tested negative for COVID at home twice since onset. Not taking anything for symptoms. Patient is 20 weeks gestation and endorses normal movement. MD elicited complaint: cough Related Data Home Medications ?Medication ?Instructions ?Recorded ?Confirmed ?Last Taken ?Type bupropion HCl 100 mg tablet,12 hr 100 mg PO DIRECTED 02/06/24 11/02/24 Unknown History sustained-release aspirin 81 mg tablet,delayed 81 mg PO DAILY 11/02/24 Unknown History release (Adult Low Dose Aspirin) vits no.126-ferrous fum tablet 11/02/24 Unknown History 28 mg iron-folic acid 800 mcg tablet (Classic ) Allergies Allergy/AdvReac Type Severity Reaction Status Date / Time No Known Allergies Allergy Unknown Verified 02/06/24 13:16 Review of Systems Review of Systems: CONSTITUTIONAL: Endorses malaise, denies body aches, chills, sweats, fever EYES: Denies visual changes, redness, or discharge ENT: Reports rhinorrhea, congestion, sinus pain, otalgia, sore throat CARDIOVASCULAR: Denies chest pain, palpitations, edema RESPIRATORY: Reports cough, post nasal drainage, dyspnea GASTROINTESTINAL: Denies abdominal pain, nausea, vomiting, diarrhea SKIN: Denies rash or itching NEUROLOGIC: Denies headache PMFSH Past Medical History Medical History Asthma Finger fracture right 5th Shingles Surgical History Surgical History History of placement of ear tubes Social History Social History Smoking status: Never smoker Alcohol intake: current Alcohol use details: occasional Substance use: never Exam Narrative: GENERAL: Mildly Ill-appearing, nontoxic no acute distress. EYES: conjunctivae clear ENT: Mucous membranes moist. Nasal congestion is noted TMs pearly foley with dull light reflex bilaterally; no tragal tenderness. Oropharynx not erythematous without lesions or exudate, no drooling, no hoarseness, no trismus, uvula midline. No tripod positioning, muffled voice, soft palate or pharyngeal wall bulging NECK: Supple. No lymphadenopathy CHEST: Clear to auscultation, breath sounds equal. No wheezing, rhonchi, rales, or stridor. No respiratory distress, speaks in full sentences. HEART: Regular rate and rhythm. No murmur heard. SKIN: Warm, dry, no rash. NEURO: Alert and oriented x3. PSYCH: Normal mood and affect Course Course Emergency Course: Patient is aware of diagnosis, understands and agrees to treatment plan. Anticipatory guidance given. Patient agrees to follow-up as directed and is aware of reasons to seek care at the emergency department. Portions of this record may have been created with voice recognition software Level of Care: Express Care Visit Vital Signs Vital signs: Vital Signs Temperature 98.0 F 11/02/24 11:24 Pulse Rate 100 11/02/24 11:24 Respiratory Rate 18 11/02/24 11:24 Blood Pressure 110/59 L 11/02/24 11:24 Pulse Oximetry 99 11/02/24 11:24 Oxygen Delivery Room Air 11/02/24 11:24 Temperature 98.0 F 11/02/24 11:24 Pulse Rate 100 11/02/24 11:24 Respiratory Rate 18 11/02/24 11:24 Blood Pressure 110/59 L 11/02/24 11:24 Pulse Oximetry 99 11/02/24 11:24 Oxygen Delivery Room Air 11/02/24 11:24 reviewed MDM - URI/Sore Throat MDM Narrative Medical decision making narrative: Discussed physical exam findings and test results. Advised supportive measures and signs/symptoms to go to the ER. Pt is appropriate for outpt treatment and f/u. Differential Diagnosis Differential diagnosis: Likely upper respiratory infection, sinusitis, viral infection, influenza and pharyngitis Lab Data Labs: Lab Results 11/02/24 Range/Units 12:08 POC Grp A Strep Screen Negative (Negative) Discharge Plan Discharge Clinical Impression: Upper respiratory infection Patient Disposition: Home Condition: Stable Instructions: Antibiotic Form, Upper Respiratory Infection (ED) Additional Instructions: Flu and COVID negative. Rapid strep swab was negative today You will be notified in a few days if the culture comes back positive for strep, and appropriate antibiotics will be called in at that time. if symptoms are due to a viral illness, it is not treated with antibiotics. Viral symptoms can be present for up to 10-14 days. Recommendations: Speak with your Obgyn before starting any over the counter medications. Saline nasal spray and Zyrtec for sinus congestion Cough syrup may cause drowsiness; avoid driving or take it at night time. Tylenol every 8 hours as needed for pain/fever Soft foods, cool liquids, warm tea. Gargle with warm saltwater twice a day. Chloraseptic spray and throat lozenges. Rest and stay hydrated. --Follow up with your PCP and Obgyn --Go to the ER immediately if you cannot swallow your saliva, trouble breathing/wheezing, throat swelling, pain is persistent and severe Patient Language: Portuguese Prescriptions: No Action bupropion HCl 100 mg tablet sustained-release 12 hr 100 mg PO DIRECTED aspirin [Adult Low Dose Aspirin] 81 mg tablet,delayed release (DR/EC) 81 mg PO DAILY Classic 28 mg iron- 800 mcg tablet Follow-up/Referrals: PHYSICIAN,ASSOCIATE ARTISTIC DIRECTOR [Primary Care Provider] - Time of Disposition: 12:23
[2024-11-02 12:09] LABS: EDSTREPNEGPOS1 Negative (Negative)
[2024-11-02 12:27] LABS: EDCOVIDSCREEN Negative (Negative); EDINFLUASCREEN Negative (Negative); EDINFLUBSCREEN Negative (Negative)
== END 2024-11-02 12:28 | disposition home or self-care (01) ==
PROVIDERS: Emergency Provider Nurse Practitioner Family; Referring Provider Family Medicine
DX: J06.9 Acute upper respiratory infection, unspecified (principal); Z20.822 Contact with and (suspected) exposure to COVID-19; J45.909 Unspecified asthma, uncomplicated
CPT/HCPCS: 87081; 87426; 87804; 87880; 99213; G0463